=== PATIENT | male | born 1960 | race American Indian/Alaskan Native ===

== ENCOUNTER 2017-12-30 15:54 | Inpatient (IN) | payer MEDICAID ==
[2017-12-30] MEDS ORDERED: ASPIRIN PO ONE (16:07)
--- NOTE | 2017-12-30 16:52 | XRay Report ---
FINAL REPORT PROCEDURE: XR CHEST ROUTINE 2V TECHNIQUE: PA and lateral chest radiographs were obtained. CPT 12550 HISTORY: chest pain, SOB COMPARISON: 08/26/2017 FINDINGS: Heart: Normal. Mediastinum/Vessels: Normal. Lungs/Pleural space: No infiltrate, effusion, or pneumothorax. Bony thorax: No acute osseous abnormality. Other: IMPRESSION: No radiographic evidence of acute abnormality.
[2017-12-30 17:07] LABS: Basophils % (Auto) 0.2 % (0.0-1.8); Eosinophils # (Auto) 0.1 K/mm3 (0.0-0.4); Hematocrit 31.7 % (35.5-45.6); Hemoglobin 10.5 gm/dl (11.8-15.2); Lymphocytes # (Auto) 1.1 K/mm3 (1.2-5.4); Lymphocytes % (Auto) 11.5 % (13.4-35.0); Mean Corpuscular HGB Conc 33 % (32-34); Mean Corpuscular Hemoglobin 30 pg (28-32); Mean Corpuscular Volume 91 fl (84-94); Monocytes # (Auto) 0.8 K/mm3 (0.0-0.8); Monocytes % (Auto) 8.4 % (0.0-7.3); Platelet Count 379 K/mm3 (140-440); Red Cell Distribution Width 16.1 % (13.2-15.2)
[2017-12-30 17:16] LABS: Calcium 9.5 mg/dL (8.4-10.2)
--- NOTE | 2017-12-30 23:01 | Emergency Department Report ---
ED Chest Pain HPI - General Chief Complaint: Chest Pain Stated Complaint: CHEST PAIN/SOB Time Seen by Provider: 12/30/17 23:00 Source: patient Mode of arrival: Ambulatory Limitations: No Limitations - History of Present Illness MD Complaint: chest pain -: Sudden Onset: during rest Pain Location: substernal Pain Radiation: none Severity scale (0 -10): 6 Quality: heaviness Consistency: constant Improves With: nothing Worsens With: nothing re: denies: nausea, vomting Other Symptoms: denies: fever Treatments Prior to Arrival: none - Related Data Previous Rx's Medication Instructions Recorded Last Taken Type Aspirin [Aspirin BABY CHEW TAB] 81 mg PO QDAY #30 tab.chew 08/28/17 Unknown Rx AtorvaSTATin [Lipitor] 40 mg PO QHS #30 tablet 08/28/17 Unknown Rx Clopidogrel [Plavix] 75 mg PO QDAY #30 tablet 08/28/17 Unknown Rx Gabapentin [Neurontin] 300 mg PO TID #90 capsule 08/28/17 Unknown Rx ISOSORBIDE MONOnitrate [Imdur ER] 30 mg PO DAILY #30 tablet 08/28/17 Unknown Rx Lisinopril [Zestril TAB] 40 mg PO QDAY #30 tablet 08/28/17 Unknown Rx Metoprolol Succinate [Toprol Xl] 50 mg PO QDAY #30 tab.er.24h 08/28/17 Unknown Rx Nitroglycerin [Nitrostat] 0.4 mg SL Q5M PRN #30 tablet 08/28/17 Unknown Rx Sertraline [Zoloft] 100 mg PO DAILY #30 tablet 08/28/17 Unknown Rx amLODIPine [Norvasc] 10 mg PO DAILY #30 tablet 08/28/17 Unknown Rx risperiDONE [RisperDAL] 1 mg PO DAILY #30 tablet 08/28/17 Unknown Rx Allergies Allergy/AdvReac Type Severity Reaction Status Date / Time No Known Allergies Allergy Verified 04/20/17 13:25 Heart Score - HEART Score History: Moderately suspicious EKG: Non-specific Age: 45-65 Risk factors: 1-2 risk factors Troponin: < normal limit HEART Score: 4 - Critical Actions Critical Actions: 4-6 pts:12-16.6% risk of adverse cardiac event. Should be admitted ED Review of Systems ROS: Stated complaint: CHEST PAIN/SOB Other details as noted in HPI Comment: All other systems reviewed and negative Constitutional: denies: chills, fever Eyes: denies: eye pain ENT: denies: ear pain Respiratory: shortness of breath. denies: cough Cardiovascular: chest pain, palpitations Endocrine: no symptoms reported Gastrointestinal: denies: abdominal pain, nausea, vomiting Genitourinary: denies: urgency, dysuria Musculoskeletal: denies: back pain Skin: denies: rash, lesions Neurological: denies: headache, weakness Psychiatric: denies: anxiety, depression Hematological/Lymphatic: denies: easy bleeding, easy bruising ED Past Medical Hx - Past Medical History Hx Hypertension: Yes Hx CVA: Yes (2014) Hx Heart Attack/AMI: Yes (x2, Stents placed) Hx Congestive Heart Failure: Yes Hx Diabetes: No Hx Arthritis: Yes Additional medical history: Cardiomegaly, Herniated Disk, Neuropathy - Surgical History Hx Coronary Stent: Yes Additional Surgical History: Heart stents; Stents and "bubble" placed in legs. - Social History Smoking Status: Current Every Day Smoker Substance Use Type: None - Medications Home Medications: Home Medications Medication Instructions Recorded Confirmed Last Taken Type Aspirin [Aspirin BABY CHEW TAB] 81 mg PO QDAY #30 tab.chew 08/28/17 Unknown Rx AtorvaSTATin [Lipitor] 40 mg PO QHS #30 tablet 08/28/17 Unknown Rx Clopidogrel [Plavix] 75 mg PO QDAY #30 tablet 08/28/17 Unknown Rx Gabapentin [Neurontin] 300 mg PO TID #90 capsule 08/28/17 Unknown Rx ISOSORBIDE MONOnitrate [Imdur ER] 30 mg PO DAILY #30 tablet 08/28/17 Unknown Rx Lisinopril [Zestril TAB] 40 mg PO QDAY #30 tablet 08/28/17 Unknown Rx Metoprolol Succinate [Toprol Xl] 50 mg PO QDAY #30 tab.er.24h 08/28/17 Unknown Rx Nitroglycerin [Nitrostat] 0.4 mg SL Q5M PRN #30 tablet 08/28/17 Unknown Rx Sertraline [Zoloft] 100 mg PO DAILY #30 tablet 08/28/17 Unknown Rx amLODIPine [Norvasc] 10 mg PO DAILY #30 tablet 08/28/17 Unknown Rx risperiDONE [RisperDAL] 1 mg PO DAILY #30 tablet 08/28/17 Unknown Rx ED Physical Exam - General Limitations: No Limitations General appearance: alert, in no apparent distress - Head Head exam: Present: atraumatic, normocephalic, normal inspection - Eye Eye exam: Present: normal appearance, PERRL, EOMI Pupils: Present: normal accommodation - ENT ENT exam: Present: normal exam, normal orophraynx, mucous membranes moist - Neck Neck exam: Present: normal inspection, full ROM. Absent: tenderness - Respiratory Respiratory exam: Present: normal lung sounds bilaterally. Absent: respiratory distress, wheezes, rales, rhonchi - Cardiovascular Cardiovascular Exam: Present: regular rate, normal rhythm - GI/Abdominal GI/Abdominal exam: Present: soft, normal bowel sounds. Absent: distended, tenderness, guarding, rebound - Extremities Exam Extremities exam: Present: normal inspection, full ROM, normal capillary refill - Back Exam Back exam: Present: normal inspection, full ROM - Neurological Exam Neurological exam: Present: alert, oriented X3, CN II-XII intact - Psychiatric Psychiatric exam: Present: normal affect, normal mood - Skin Skin exam: Present: warm, dry, intact, normal color ED Course Vital Signs 12/30/17 12/30/17 12/30/17 16:03 16:08 23:49 Temperature 97.9 F Pulse Rate 92 H 61 Respiratory 16 12 Rate Blood Pressure 93/39 Blood Pressure 84/42 157/73 [Right] O2 Sat by Pulse 97 99 Oximetry - Reevaluation(s) Reevaluation #1: 12/31/17 00:19 I discussed patients care with the hospitalist inside sales person Dr Ilsa Bajwa. She will admit patient to the hospital for further evaluation and management. ANTON score - Anton Score Age > 65: (0) No Aspirin use within the Past 7 Days: (0) No 3 or more CAD Risk Factors: (1) Yes 2 or more Angina events in past 24 hrs: (1) Yes Known CAD with more than 50% Stenosis: (0) No Elevated Cardiac Markers: (0) No ST Deviation Greater than 0.5mm: (0) No ANTON Score: 2 ED Medical Decision Making - Lab Data Result diagrams: 12/30/17 16:36 12/30/17 16:36 - EKG Data -: EKG Interpreted by Me EKG shows normal: sinus rhythm Rate: bradycardia (57) - EKG Data When compared to previous EKG there are: previous EKG unavailable Interpretation: nonspecific ST-T wave dylan - Radiology Data Radiology results: report reviewed, image reviewed - Medical Decision Making Chest Pain Critical care attestation.: If time is entered above; I have spent that time in minutes in the direct care of this critically ill patient, excluding procedure time. ED Disposition Clinical Impression: MELISA (acute kidney injury) Chest pain Qualifiers: Chest pain type: unspecified Qualified Code(s): R07.9 - Chest pain, unspecified Hypotension Qualifiers: Hypotension type: unspecified hypotension type Qualified Code(s): I95.9 - Hypotension, unspecified Disposition: DC-09 OP ADMIT IP TO THIS HOSP Is pt being admited?: Yes Does the pt Need Aspirin: Yes Condition: Stable Time of Disposition: 23:35
[2017-12-30] MEDS ORDERED: NACL 0.9% 1000 ML 1,000 ML IV ONE ×2 (23:02)
[2017-12-30 23:43] LABS: INR 0.92 (0.87-1.13); Partial Thromboplastin Time 37.9 Sec. (24.2-36.6)
[2017-12-30] MEDS ORDERED: SODIUM CHLORIDE FLUSH SYRINGE 10 ML IV PRN (23:50)
[2017-12-30] MEDS ORDERED: ZOFRAN IV PRN (23:50)
[2017-12-30] MEDS ORDERED: MORPHINE IV PRN (23:50)
[2017-12-30] MEDS ORDERED: TYLENOL PO PRN (23:50)
[2017-12-30] MEDS ORDERED: D50W (25GM) Syringe IV PRN (23:50)
--- NOTE | 2017-12-30 23:55 | History and Physical Report ---
History of Present Illness Date of examination: 12/30/17 History of present illness: 57-year-old man with a history of hypertension, coronary artery disease, peripheral vascular disease, hyperlipidemia, ischemic cardiomyopathy, depression comes emergency room with complaints of chest pain . Pain is in the across the chest which he describes a sharp pain, intermittent every 5 minutes, radiating to the left neck, he cannot identify any exacerbating or relieving factors. He had a stent placed in October of this year. 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 He denies nausea vomiting, diaphoresis or palpitation, admits to shortness of breath. Review of systems Constitutional: no weight loss, chills Ears, eyes, nose, mouth and throat: no nasal congestion, no nasal discharge, no sinus pressure, no vision change, no red eye. Neck: No neck pain or rigidity. Cardiovascular: no palpitations Respiratory: No cough, shortness of breath Gastrointestinal: no abdominal pain, hematochezia Genitourinary : no dysuria, frequency , no hematuria Musculoskeletal: no joint swelling or muscle ache Integumentary: no rash, no pruritis Neurological: no parathesias, no numbness, no focal weakness Endocrine: no cold or heat intolerance, no polyuria or polydipsia Hematologic/Lymphatic: no easy bruising, no easy bleeding, no gland swelling Allergic/Immunologic: no urticaria, no angioedema. PAST MEDICAL HISTORY: hypertension, coronary artery disease, peripheral vascular disease, hyperlipidemia, ischemic cardiomyopathy, depression PAST SURGICAL HISTORY: None SOCIAL HISTORY: no alcohol, drugs, smoke 1/3 pack day FAMILY HISTORY: Hypertension Medications and Allergies Allergies Allergy/AdvReac Type Severity Reaction Status Date / Time No Known Allergies Allergy Verified 04/20/17 13:25 Home Medications Medication Instructions Recorded Confirmed Last Taken Type Aspirin [Aspirin BABY CHEW TAB] 81 mg PO QDAY #30 tab.chew 08/28/17 Unknown Rx AtorvaSTATin [Lipitor] 40 mg PO QHS #30 tablet 08/28/17 Unknown Rx Clopidogrel [Plavix] 75 mg PO QDAY #30 tablet 08/28/17 Unknown Rx Gabapentin [Neurontin] 300 mg PO TID #90 capsule 08/28/17 Unknown Rx ISOSORBIDE MONOnitrate [Imdur ER] 30 mg PO DAILY #30 tablet 08/28/17 Unknown Rx Lisinopril [Zestril TAB] 40 mg PO QDAY #30 tablet 08/28/17 Unknown Rx Metoprolol Succinate [Toprol Xl] 50 mg PO QDAY #30 tab.er.24h 08/28/17 Unknown Rx Nitroglycerin [Nitrostat] 0.4 mg SL Q5M PRN #30 tablet 08/28/17 Unknown Rx Sertraline [Zoloft] 100 mg PO DAILY #30 tablet 08/28/17 Unknown Rx amLODIPine [Norvasc] 10 mg PO DAILY #30 tablet 08/28/17 Unknown Rx risperiDONE [RisperDAL] 1 mg PO DAILY #30 tablet 08/28/17 Unknown Rx Active Meds: Active Medications Acetaminophen (Tylenol) 650 mg PO Q4H PRN PRN Reason: Pain MILD(1-3)/Fever >100.5/SAHU Dextrose (D50w (25gm) Syringe) 50 ml IV PRN PRN PRN Reason: Hypoglycemia Enoxaparin Sodium (Lovenox) 30 mg SUB-Q QDAY [facility] Sodium Chloride (Nacl 0.9% 1000 Ml) 1,000 mls @ 999 mls/hr IV BOLUS ONE Stop: 12/31/17 00:02 Sodium Chloride (Nacl 0.9% 1000 Ml) 1,000 mls @ 999 mls/hr IV BOLUS ONE Stop: 12/31/17 00:02 Insulin Human Lispro (Humalog) 0 unit SUB-Q ACHS ANDREW; Protocol Morphine Sulfate (Morphine) 2 mg IV Q4H PRN PRN Reason: Pain, Moderate (4-6) Ondansetron HCl (Zofran) 4 mg IV Q4H PRN PRN Reason: Nausea And Vomiting Sodium Chloride (Sodium Chloride Flush Syringe 10 Ml) 10 ml IV BID ANDREW Sodium Chloride (Sodium Chloride Flush Syringe 10 Ml) 10 ml IV PRN PRN PRN Reason: LINE FLUSH Exam - Physical Exam Narrative exam: Gen. appearance: Patient lying in bed, no apparent distress HEENT: Normocephalic, atraumatic, pupils equally round and reactive to light, extraocular movement intact, and no sclericterus,. No JVD or thyromegaly or nodule,neck supple, no carotid bruit ,mucous membranes moist, no exudate or erythema Heart: S1, S2, regular rate and rhythm Lungs: Clear to auscultation bilaterally, breathing comfortable Abdomen: Positive bowel sounds, nontender, nondistended, no organomegaly Extremity: No edema, cyanosis, clubbing Skin: No rash, nodules, warm, dry Neuro: Oriented 3, cranial nerves II-12 intact, speech is fluent, motor and sensory intact - Constitutional Vitals: Temp Pulse Resp BP Pulse Ox 97.9 F 61 16 157/73 99 12/30/17 16:03 12/30/17 23:49 12/30/17 23:49 12/30/17 23:49 12/30/17 23:49 Results - Labs CBC & Chem 7: 12/30/17 16:36 12/30/17 16:36 Labs: Abnormal lab results 12/30/17 12/30/17 12/30/17 Range/Units 16:36 16:36 23:18 RBC 3.50 L (3.65-5.03) M/mm3 Hgb 10.5 L (11.8-15.2) gm/dl Hct 31.7 L (35.5-45.6) % RDW 16.1 H (13.2-15.2) % Lymph % (Auto) 11.5 L (13.4-35.0) % [place] % (Auto) 8.4 H (0.0-7.3) % Lymph # 1.1 L (1.2-5.4) K/mm3 Seg Neutrophils % 78.9 H (40.0-70.0) % APTT 37.9 H (24.2-36.6) Sec. Sodium 136 L (137-145) mmol/L Chloride 95.8 L (98-107) mmol/L BUN 29 H (9-20) mg/dL Creatinine 2.5 H (0.8-1.5) mg/dL Glucose 118 H (75-100) mg/dL - Imaging and Cardiology EKG: image reviewed Chest x-ray: image reviewed Assessment and Plan Assessment Unstable angina Acute renal failure Coronary artery disease Hypertension Peripheral vascular disease Hyperlipidemia Depression Plan Admit to medicine Check cardiac enzymes, consult cardiology, IV morphine Start IV fluids, monitor kidney function, hold ACEI Continue appropiate outpatient medications DVT prophylaxis
[2017-12-31] MEDS ORDERED: APRESOLINE IV PRN (00:05)
[2017-12-31] MEDS ORDERED: ASPIRIN ONE (00:20)
[2017-12-31] MEDS ORDERED: NACL 0.9% 1000 ML 1,000 ML ONE ×2 (00:20→03:57)
[2017-12-31] MEDS ORDERED: NACL 0.45% 1000 ML 1,000 ML IV SCH (01:00)
[2017-12-31 04:53] LABS: Basophils % (Auto) 0.4 % (0.0-1.8); Eosinophils # (Auto) 0.2 K/mm3 (0.0-0.4); Eosinophils % (Auto) 1.9 % (0.0-4.3); Hematocrit 32.7 % (35.5-45.6); Hemoglobin 10.9 gm/dl (11.8-15.2); Lymphocytes # (Auto) 2.5 K/mm3 (1.2-5.4); Lymphocytes % (Auto) 24.5 % (13.4-35.0); Mean Corpuscular HGB Conc 33 % (32-34); Mean Corpuscular Hemoglobin 31 pg (28-32); Mean Corpuscular Volume 93 fl (84-94); Monocytes % (Auto) 9.5 % (0.0-7.3); Platelet Count 358 K/mm3 (140-440); Red Blood Count 3.52 M/mm3 (3.65-5.03); Red Cell Distribution Width 16.3 % (13.2-15.2)
[2017-12-31 05:21] LABS: Calcium 8.8 mg/dL (8.4-10.2)
--- NOTE | 2017-12-31 07:46 | Progress Note ---
Assessment and Plan Assessment and plan: --Unstable angina; Continue aspirin and Plavix and nitrates statins and beta blockers Hold TARA inhibitor's in view of MELISA, serial cardiac enzymes and EKG Echo:06/20/2017 at a different hospital; EF 45-50% LDH grade 3 diastolic failure Cath :06/20/2017 patent LAD, PCI to OM1 follow cardiology evaluation and recommendations Possible stress test tomorrow --CAD status post PCI; Continue aspirin and Plavix and other cardiac medications --MELISA; probably secondary to ATN, gentle hydration closely monitor his renal function Avoid nephrotoxins, no improvement consider nephrology consult --Dyslipidemia; resume statin --Diastolic congestive heart failure; continue current management --Peripheral neuropathy; antinuclear gabapentin --History of depression; continue Zoloft, supportive care --DVT prophylaxis; Lovenox renal dose We will closely monitor the patient and adjust the management as needed Plan of care reviewed with the patient History Interval history: Patient Seen and examined medical records reviewed Complaints of intermittent chest pain Alert awake oriented 3 Vital Signs reviewed Hospitalist Physical - Constitutional Vitals: Temp Pulse Resp BP Pulse Ox 97.9 F 53 L 17 151/67 97 12/30/17 16:03 12/31/17 05:00 12/31/17 05:00 12/31/17 05:00 12/31/17 05:00 General appearance: Present: no acute distress, well-nourished - EENT Eyes: Present: PERRL, EOM intact - Neck Neck: Present: supple, normal ROM - Respiratory Respiratory effort: normal Respiratory: bilateral: diminished, negative: rales, rhonchi, wheezing - Cardiovascular Rhythm: regular Heart Sounds: Present: S1 & S2 - Extremities Extremities: no ischemia, No edema - Abdominal General gastrointestinal: soft, non-tender, non-distended, normal bowel sounds - Integumentary Integumentary: Present: clear, warm - Psychiatric Psychiatric: appropriate mood/affect, cooperative - Neurologic Neurologic: CNII-XII intact, moves all extremities Results - Labs CBC & Chem 7: 12/31/17 04:28 12/31/17 04:28 Labs: Laboratory Last Values WBC 10.4 K/mm3 (4.5-11.0) 12/31/17 04:28 RBC 3.52 M/mm3 (3.65-5.03) L 12/31/17 04:28 Hgb 10.9 gm/dl (11.8-15.2) L 12/31/17 04:28 Hct 32.7 % (35.5-45.6) L 12/31/17 04:28 MCV 93 fl (84-94) 12/31/17 04:28 MCH 31 pg (28-32) 12/31/17 04:28 MCHC 33 % (32-34) 12/31/17 04:28 RDW 16.3 % (13.2-15.2) H 12/31/17 04:28 Plt Count 358 K/mm3 (140-440) 12/31/17 04:28 Lymph % (Auto) 24.5 % (13.4-35.0) 12/31/17 04:28 [place] % (Auto) 9.5 % (0.0-7.3) H 12/31/17 04:28 Eos % (Auto) 1.9 % (0.0-4.3) 12/31/17 04:28 Baso % (Auto) 0.4 % (0.0-1.8) 12/31/17 04:28 Lymph # 2.5 K/mm3 (1.2-5.4) 12/31/17 04:28 [place] # 1.0 K/mm3 (0.0-0.8) H 12/31/17 04:28 Eos # 0.2 K/mm3 (0.0-0.4) 12/31/17 04:28 Baso # 0.0 K/mm3 (0.0-0.1) 12/31/17 04:28 Seg Neutrophils % 63.7 % (40.0-70.0) 12/31/17 04:28 Seg Neutrophils # 6.6 K/mm3 (1.8-7.7) 12/31/17 04:28 PT 12.8 Sec. (12.2-14.9) 12/30/17 23:18 INR 0.92 (0.87-1.13) 12/30/17 23:18 APTT 37.9 Sec. (24.2-36.6) H 12/30/17 23:18 Sodium 138 mmol/L (137-145) 12/31/17 04:28 Potassium 3.6 mmol/L (3.6-5.0) 12/31/17 04:28 Chloride 98.9 mmol/L (98-107) 12/31/17 04:28 Carbon Dioxide 26 mmol/L (22-30) 12/31/17 04:28 Anion Gap 17 mmol/L 12/31/17 04:28 BUN 28 mg/dL (9-20) H 12/31/17 04:28 Creatinine 2.2 mg/dL (0.8-1.5) H 12/31/17 04:28 Estimated GFR 38 ml/min 12/31/17 04:28 BUN/Creatinine Ratio 13 % 12/31/17 04:28 Glucose 90 mg/dL (75-100) 12/31/17 04:28 Calcium 8.8 mg/dL (8.4-10.2) 12/31/17 04:28 Troponin T < 0.010 ng/mL (0.00-0.029) 12/30/17 21:28 NT-Pro-B Natriuret Pep 85.27 pg/mL (0-900) 12/30/17 23:18
[2017-12-31] MEDS: HumaLOG SUB-Q SCH ×3 (08:05→22:19)
[2017-12-31] MEDS: NEURONTIN PO SCH ×3 (08:15→22:18)
--- NOTE | 2017-12-31 08:57 | Consultation ---
History of Present Illness Consult date: 12/31/17 Consult reason: chest pain History of present illness: 57 year old male with a history of coronary artery disease presenting with left precordial chest pain at rest associated with some shortness of breath. Patient admitted for for that evaluation and management. Past History Past Medical History: CAD, hypertension, hyperlipidemia Past Surgical History: PTCA Social history: no significant social history, smoking. denies: alcohol abuse, IV drug use Family history: no significant family history Medications and Allergies Allergies Allergy/AdvReac Type Severity Reaction Status Date / Time No Known Allergies Allergy Verified 04/20/17 13:25 Home Medications Medication Instructions Recorded Confirmed Last Taken Type Aspirin [Aspirin BABY CHEW TAB] 81 mg PO QDAY #30 tab.chew 08/28/17 Unknown Rx AtorvaSTATin [Lipitor] 40 mg PO QHS #30 tablet 08/28/17 Unknown Rx Clopidogrel [Plavix] 75 mg PO QDAY #30 tablet 08/28/17 Unknown Rx Gabapentin [Neurontin] 300 mg PO TID #90 capsule 08/28/17 Unknown Rx ISOSORBIDE MONOnitrate [Imdur ER] 30 mg PO DAILY #30 tablet 08/28/17 Unknown Rx Lisinopril [Zestril TAB] 40 mg PO QDAY #30 tablet 08/28/17 Unknown Rx Metoprolol Succinate [Toprol Xl] 50 mg PO QDAY #30 tab.er.24h 08/28/17 Unknown Rx Nitroglycerin [Nitrostat] 0.4 mg SL Q5M PRN #30 tablet 08/28/17 Unknown Rx Sertraline [Zoloft] 100 mg PO DAILY #30 tablet 08/28/17 Unknown Rx amLODIPine [Norvasc] 10 mg PO DAILY #30 tablet 08/28/17 Unknown Rx risperiDONE [RisperDAL] 1 mg PO DAILY #30 tablet 08/28/17 Unknown Rx Active Meds: Active Medications Acetaminophen (Tylenol) 650 mg PO Q4H PRN PRN Reason: Pain MILD(1-3)/Fever >100.5/SAHU Amlodipine Besylate (Norvasc) 10 mg PO DAILY ANDREW Aspirin (Baby Aspirin) 81 mg PO QDAY ANDREW Atorvastatin Calcium (Lipitor) 40 mg PO QHS ANDREW Clopidogrel Bisulfate (Plavix) 75 mg PO QDAY ANDREW Dextrose (D50w (25gm) Syringe) 50 ml IV PRN PRN PRN Reason: Hypoglycemia Enoxaparin Sodium (Lovenox) 30 mg SUB-Q QDAY [facility] Gabapentin (Neurontin) 300 mg PO TID ANDREW Hydralazine HCl (Apresoline) 5 mg IV Q6H PRN PRN Reason: Hypertension Sodium Chloride (Nacl 0.45% 1000 Ml) 1,000 mls @ 75 mls/hr IV DIRECT ANDREW Insulin Human Lispro (Humalog) 0 unit SUB-Q ACHS ANDREW; Protocol Isosorbide Mononitrate (Imdur) 30 mg PO DAILY [facility] Metoprolol Succinate (Toprol Xl) 50 mg PO QDAY [facility] Morphine Sulfate (Morphine) 2 mg IV Q4H PRN PRN Reason: Pain, Moderate (4-6) Ondansetron HCl (Zofran) 4 mg IV Q4H PRN PRN Reason: Nausea And Vomiting Risperidone (Risperdal) 1 mg PO DAILY ANDREW Sertraline HCl (Zoloft) 100 mg PO DAILY [facility] Sodium Chloride (Sodium Chloride Flush Syringe 10 Ml) 10 ml IV BID [facility] Sodium Chloride (Sodium Chloride Flush Syringe 10 Ml) 10 ml IV PRN PRN PRN Reason: LINE FLUSH Review of Systems All systems: negative Cardiovascular: chest pain, shortness of breath Physical Examination Vital Signs Temp Pulse Resp BP Pulse Ox 97.9 F 92 H 16 93/39 97 12/30/17 16:03 12/30/17 16:03 12/30/17 16:03 12/30/17 16:03 12/30/17 16:03 General appearance: no acute distress, well-nourished HEENT: Positive: PERRL, Mucus Membranes Moist Neck: Positive: neck supple, trachea midline Cardiac: Positive: Reg Rate and Rhythm, S1/S2. Negative: Audible Murmur Lungs: Positive: clear to auscultation, Normal Breath Sounds Neuro: Positive: Grossly Intact Abdomen: Positive: Soft, Active Bowel Sounds. Negative: Tender, Distended Male genitourinary: Positive: normal Skin: Positive: Clear Incision: Cardiac Cath Site Musculoskeletal: No Pain, Normal Range of Motion Extremities: Present: normal. Absent: edema Results 12/31/17 04:28 12/31/17 04:28 Coagulation 12/30/17 Range/Units 23:18 PT 12.8 (12.2-14.9) Sec. INR 0.92 (0.87-1.13) APTT 37.9 H (24.2-36.6) Sec. CBC 12/30/17 12/31/17 Range/Units 16:36 04:28 WBC 9.5 10.4 (4.5-11.0) K/mm3 RBC 3.50 L 3.52 L (3.65-5.03) M/mm3 Hgb 10.5 L 10.9 L (11.8-15.2) gm/dl Hct 31.7 L 32.7 L (35.5-45.6) % Plt Count 379 358 (140-440) K/mm3 Lymph # 1.1 L 2.5 (1.2-5.4) K/mm3 [place] # 0.8 1.0 H (0.0-0.8) K/mm3 Eos # 0.1 0.2 (0.0-0.4) K/mm3 Baso # 0.0 0.0 (0.0-0.1) K/mm3 Comprehensive Metabolic Panel 12/30/17 12/31/17 Range/Units 16:36 04:28 Sodium 136 L 138 (137-145) mmol/L Potassium 4.4 3.6 (3.6-5.0) mmol/L Chloride 95.8 L 98.9 (98-107) mmol/L Carbon Dioxide 28 26 (22-30) mmol/L BUN 29 H 28 H (9-20) mg/dL Creatinine 2.5 H 2.2 H (0.8-1.5) mg/dL Glucose 118 H 90 (75-100) mg/dL Calcium 9.5 8.8 (8.4-10.2) mg/dL EKG interpretations - Telemetry EKG Rhythm: Sinus Rhythm Assessment and Plan 1. Chest pain rule out ischemic coronary artery disease 2. Coronary artery disease, history of PCI and stenting 3. Peripheral vascular disease 4. Hyperlipidemia 5. Essential hypertension Plan. Continue present cardiac management check cardiac isoenzymes. Lexiscan thallium scan if enzymes are negative
[2017-12-31] MEDS: PLAVIX PO SCH (10:15)
[2017-12-31] MEDS: IMDUR PO SCH (10:15)
[2017-12-31] MEDS: BABY ASPIRIN PO SCH (10:15)
[2017-12-31] MEDS: RisperDAL PO SCH (10:15)
[2017-12-31] MEDS: SODIUM CHLORIDE FLUSH SYRINGE 10 ML IV SCH ×2 (10:15→22:20)
[2017-12-31] MEDS: LOVENOX SUB-Q SCH (10:15)
[2017-12-31] MEDS: ZOLOFT PO SCH (10:15)
[2017-12-31] MEDS: NORVASC PO SCH (11:47)
[2017-12-31] MEDS: TOPROL XL PO SCH (13:03)
[2018-01-01] MEDS: HumaLOG SUB-Q SCH ×4 (07:56→16:36)
[2018-01-01] MEDS ORDERED: LEXISCAN IV ONE ×2 (08:56→09:02)
[2018-01-01] MEDS ORDERED: PNEUMOVAX 23 IM ONE (12:00)
[2018-01-01] MEDS: NORVASC PO SCH (12:21)
[2018-01-01] MEDS: RisperDAL PO SCH (12:21)
[2018-01-01] MEDS: IMDUR PO SCH (12:22)
[2018-01-01] MEDS: TOPROL XL PO SCH (12:22)
[2018-01-01] MEDS: PLAVIX PO SCH (12:22)
[2018-01-01] MEDS: NEURONTIN PO SCH ×2 (12:22→16:36)
[2018-01-01] MEDS: BABY ASPIRIN PO SCH (12:23)
[2018-01-01] MEDS: ZOLOFT PO SCH (12:23)
[2018-01-01] MEDS: LOVENOX SUB-Q SCH (12:23)
[2018-01-01] MEDS: SODIUM CHLORIDE FLUSH SYRINGE 10 ML IV SCH (12:24)
--- NOTE | 2018-01-01 14:21 | Progress Note ---
Assessment and Plan - Patient Problems (1) Chest pain Current Visit: Yes Status: Acute Qualifiers: Chest pain type: unspecified Qualified Code(s): R07.9 - Chest pain, unspecified (2) CAD (coronary artery disease) Current Visit: No Status: Acute Qualifiers: Coronary Disease-Associated Artery/Lesion type: [place] artery Associated angina: without angina (3) Depression Current Visit: No Status: Chronic Qualifiers: Major depression recurrence: recurrent Major depression episode severity: moderate Qualified Code(s): F33.1 - Major depressive disorder, recurrent, moderate (4) HTN (hypertension) Current Visit: No Status: Chronic Qualifiers: Hypertension type: essential hypertension Qualified Code(s): I10 - Essential (primary) hypertension (5) Hyperlipidemia Current Visit: No Status: Chronic Qualifiers: Hyperlipidemia type: mixed hyperlipidemia Qualified Code(s): E78.2 - Mixed hyperlipidemia (6) PAD (peripheral artery disease) Current Visit: No Status: Chronic Subjective Date of service: 01/01/18 Interval history: C\O TOE PAIN....CONTINUOUS CP,,+ TENDER Objective Vital Signs Temp Pulse Resp BP BP Pulse Ox 01/01/18 12:18 98.7 F 97 H 20 138/62 12/31/17 23:24 98.5 F 62 16 116/54 95 12/31/17 23:11 99 12/31/17 22:00 16 12/31/17 17:16 98.7 F 66 22 159/64 100 12/31/17 14:40 128/48 100 12/31/17 14:30 128/48 100 12/31/17 14:20 128/48 100 - Physical Examination HEENT: Positive: PERRL, Mucus Membranes Moist Neck: Positive: neck supple, trachea midline Cardiac: Positive: Reg Rate and Rhythm, S4, Other (TENDER) Lungs: Positive: clear to auscultation Neuro: Positive: Grossly Intact Abdomen: Positive: Soft, Active Bowel Sounds. Negative: Tender, Distended Skin: Positive: Clear Incision: Cardiac Cath Site Musculoskeletal: No Pain, Normal Range of Motion Extremities: Present: normal. Absent: edema - Imaging and Cardiology EKG: image reviewed
[2018-01-01 14:31] VITALS: BP 153/71
--- NOTE | 2018-01-01 17:41 | Progress Note ---
Hospitalist Physical - Constitutional Vitals: Temp Pulse Resp BP Pulse Ox 98.7 F 97 H 20 138/62 95 01/01/18 12:18 01/01/18 12:18 01/01/18 12:18 01/01/18 12:18 12/31/17 23:24 General appearance: Present: no acute distress, well-nourished Results - Labs CBC & Chem 7: 12/31/17 04:28 12/31/17 04:28 Labs: Laboratory Last Values WBC 10.4 K/mm3 (4.5-11.0) 12/31/17 04:28 RBC 3.52 M/mm3 (3.65-5.03) L 12/31/17 04:28 Hgb 10.9 gm/dl (11.8-15.2) L 12/31/17 04:28 Hct 32.7 % (35.5-45.6) L 12/31/17 04:28 MCV 93 fl (84-94) 12/31/17 04:28 MCH 31 pg (28-32) 12/31/17 04:28 MCHC 33 % (32-34) 12/31/17 04:28 RDW 16.3 % (13.2-15.2) H 12/31/17 04:28 Plt Count 358 K/mm3 (140-440) 12/31/17 04:28 Lymph % (Auto) 24.5 % (13.4-35.0) 12/31/17 04:28 [place] % (Auto) 9.5 % (0.0-7.3) H 12/31/17 04:28 Eos % (Auto) 1.9 % (0.0-4.3) 12/31/17 04:28 Baso % (Auto) 0.4 % (0.0-1.8) 12/31/17 04:28 Lymph # 2.5 K/mm3 (1.2-5.4) 12/31/17 04:28 [place] # 1.0 K/mm3 (0.0-0.8) H 12/31/17 04:28 Eos # 0.2 K/mm3 (0.0-0.4) 12/31/17 04:28 Baso # 0.0 K/mm3 (0.0-0.1) 12/31/17 04:28 Seg Neutrophils % 63.7 % (40.0-70.0) 12/31/17 04:28 Seg Neutrophils # 6.6 K/mm3 (1.8-7.7) 12/31/17 04:28 PT 12.8 Sec. (12.2-14.9) 12/30/17 23:18 INR 0.92 (0.87-1.13) 12/30/17 23:18 APTT 37.9 Sec. (24.2-36.6) H 12/30/17 23:18 Sodium 138 mmol/L (137-145) 12/31/17 04:28 Potassium 3.6 mmol/L (3.6-5.0) 12/31/17 04:28 Chloride 98.9 mmol/L (98-107) 12/31/17 04:28 Carbon Dioxide 26 mmol/L (22-30) 12/31/17 04:28 Anion Gap 17 mmol/L 12/31/17 04:28 BUN 28 mg/dL (9-20) H 12/31/17 04:28 Creatinine 2.2 mg/dL (0.8-1.5) H 12/31/17 04:28 Estimated GFR 38 ml/min 12/31/17 04:28 BUN/Creatinine Ratio 13 % 12/31/17 04:28 Glucose 90 mg/dL (75-100) 12/31/17 04:28 POC Glucose 95 (70-105) 01/01/18 07:23 Calcium 8.8 mg/dL (8.4-10.2) 12/31/17 04:28 Troponin T < 0.010 ng/mL (0.00-0.029) 12/30/17 21:28 NT-Pro-B Natriuret Pep 85.27 pg/mL (0-900) 12/30/17 23:18
--- NOTE | 2018-01-01 17:49 | Discharge Summary ---
Providers - Providers Date of Admission: 12/30/17 23:50 Date of discharge: 01/01/18 Attending physician: KATY NOVOA 12/30/17 23:50 Consult to Physician [CONS] Routine Comment: DR FRANCO SAW PT IN ER 0800 Consulting Provider: NIA UNDERWOOD Physician Instructions: Reason For Exam: Primary care physician: [facility] RN Hospitalization Reason for admission: chest pain Condition: Stable Pertinent studies: Echo; LVEF 55%, mild LVH, diastolic dysfunction Thallium test; negative Chest x-ray; negative Hospital course: 57-year-old male patient with significant history of coronary artery disease status post PCI peripheral vascular disease dyslipidemia ischemic cardiomyopathy the patient was admitted through emergency room with left-sided chest pain. Patient was admitted symptomatically managed evaluated by cardiology, Underwent echocardiogram and thallium stress test which was negative, Echo findings consistent with diastolic dysfunction, Patient is on all appropriate cardiac medications Smoking cessation counseling done advised nicotine patch if needed Patient also advised compliance with medications and diet and follow-up visits Patient has acute kidney injury probably secondary to ATN, creatinine significantly improved from 2.5-2.2 Advised plenty oral fluids and recheck BMP in 2-3 days at PMDs office, also advised to avoid nephrotoxins Today he is comfortable no new complaints, Denies chest pain shortness of breath Vital signs stable, Cleared by cardiology for discharge, physical exam unremarkable Patient is hemodynamically clinically stable at discharge Discharge diagnosis ; --Unstable angina; atypical chest pain, negative stress test --Chest pain due to GERD --CAD status post PCI; --MELISA; probably secondary to ATN, trending down --Dyslipidemia; resume statin --Diastolic congestive heart failure; continue current meds --Peripheral neuropathy; --History of depression; stable on meds --Tobacco use; counseling Disposition: DC-01 TO HOME OR SELFCARE Time spent for discharge: 32 min Core Measure Documentation - Palliative Care Palliative Care/ Comfort Measures: Not Applicable - Core Measures Any of the following diagnoses?: none Exam - Constitutional Vitals: Temp Pulse Resp BP Pulse Ox 98.7 F 97 H 20 138/62 95 01/01/18 12:18 01/01/18 12:18 01/01/18 12:18 01/01/18 12:18 12/31/17 23:24 General appearance: Present: no acute distress, well-nourished - EENT Eyes: Present: PERRL, EOM intact - Neck Neck: Present: supple, normal ROM - Respiratory Respiratory effort: normal Respiratory: negative: rales, rhonchi, wheezing - Cardiovascular Rhythm: regular Heart Sounds: Present: S1 & S2 - Extremities Extremities: no ischemia, No edema - Abdominal General gastrointestinal: Present: soft, non-tender, non-distended, normal bowel sounds - Integumentary Integumentary: Present: clear, warm - Musculoskeletal Musculoskeletal: strength equal bilaterally - Psychiatric Psychiatric: appropriate mood/affect, cooperative - Neurologic Neurologic: CNII-XII intact, moves all extremities Plan Activity: no restrictions Diet: low salt, other (cardiac diet) Special Instructions: smoking cessation Additional Instructions: Plenty oral fluids. smoking cessation. Check BMP in 2 -3 days at PMD office Follow up with: PRIMARY CARE, [Primary Care Provider] - 3-5 Days AUBREY FRANCO MD [Staff Physician] - 7 Days
[2018-01-02] MEDS ORDERED: LOVENOX SUB-Q SCH (10:00)
== END 2018-01-01 18:29 | disposition home or self-care (01) | DRG 391 ==
LOC: ED 15:54 → 4A 23:50 → 3A 12-31 10:58
PROVIDERS: ADMIT Internal Medicine; ATTEND Internal Medicine
PROC: 3E0234Z Introduction of Serum, Toxoid and Vaccine into Muscle, Percutaneous Approach (ICD-10-PCS; principal; 2018-01-01)
DX: K21.9 Gastro-esophageal reflux disease without esophagitis (principal); N17.0 Acute kidney failure with tubular necrosis; I50.30 Unspecified diastolic (congestive) heart failure; I73.9 Peripheral vascular disease, unspecified; I25.5 Ischemic cardiomyopathy; F17.200 Nicotine dependence, unspecified, uncomplicated; I25.110 Atherosclerotic heart disease of native coronary artery with unstable angina pectoris; E78.5 Hyperlipidemia, unspecified; G62.9 Polyneuropathy, unspecified; M19.90 Unspecified osteoarthritis, unspecified site; I95.9 Hypotension, unspecified; I11.0 Hypertensive heart disease with heart failure; Z79.82 Long term (current) use of aspirin; Z79.899 Other long term (current) drug therapy; Z71.6 Tobacco abuse counseling; Z82.49 Family history of ischemic heart disease and other diseases of the circulatory system; I25.2 Old myocardial infarction; Z95.5 Presence of coronary angioplasty implant and graft; Z23 Encounter for immunization
CPT/HCPCS: 36415; 71046; 78452; 80048; 82962; 83880; 84484; 85025; 85610; 85730; 87116; 90732; 93005; 93010; 93017; 93306; 99406; A9270-GY; A9502; J1650; J2785; J7030

== ENCOUNTER 2018-01-08 23:08 | Inpatient (IN) | payer MEDICAID ==
[2018-01-09] MEDS ORDERED: ASPIRIN PO ONE (01:01)
[2018-01-09 01:37] LABS: Basophils % (Auto) 0.2 % (0.0-1.8); Eosinophils # (Auto) 0.1 K/mm3 (0.0-0.4); Eosinophils % (Auto) 0.9 % (0.0-4.3); Hematocrit 32.1 % (35.5-45.6); Hemoglobin 10.7 gm/dl (11.8-15.2); Lymphocytes # (Auto) 1.6 K/mm3 (1.2-5.4); Lymphocytes % (Auto) 12.6 % (13.4-35.0); Mean Corpuscular HGB Conc 33 % (32-34); Mean Corpuscular Hemoglobin 31 pg (28-32); Mean Corpuscular Volume 93 fl (84-94); Monocytes # (Auto) 0.7 K/mm3 (0.0-0.8); Monocytes % (Auto) 5.8 % (0.0-7.3); Platelet Count 427 K/mm3 (140-440); Red Blood Count 3.47 M/mm3 (3.65-5.03); Red Cell Distribution Width 16.3 % (13.2-15.2)
[2018-01-09 01:50] LABS: BUN/Creatinine Ratio 14; Blood Urea Nitrogen 23 mg/dL (9-20); Hemolysis Index 2
--- NOTE | 2018-01-09 11:27 | Emergency Department Report ---
HPI - General Chief Complaint: Syncope Time Seen by Provider: 01/09/18 11:04 - HPI HPI: Room 19 The patient is a 57-year-old male presenting with chief complaint syncope and chest pain. The patient states last night at approximately 22:00 while sitting on the car he states he slowly became dizzy and nauseous and had a syncopal episode waking up on the ground feeling short of breath with chest pain. Patient described his chest pain substernal and constant. The patient's chest pain is pressure-like in nature. Patient gets his pain score 4/10. Patient missed a slight pleurisy. Patient complains of a slight headache but denies fever or any other pain. Location: [See above] Duration: [See above] Quality: [See above] Severity: Pressure Modifying factors: [see above] Context: [see above] Mode of transportation: [not driving] ED Past Medical Hx - Past Medical History Previous Medical History?: Yes Hx Hypertension: Yes Hx CVA: Yes (last 09/2017 right weakness) Hx Heart Attack/AMI: Yes (last 06/2017) Hx Congestive Heart Failure: Yes Hx Arthritis: Yes Additional medical history: Cardiomegaly, Herniated Disk, Neuropathy - Surgical History Past Surgical History?: Yes Hx Coronary Stent: Yes Additional Surgical History: Heart stents; Stents and "bubble" placed in legs. - Family History Family history: no significant - Social History Smoking Status: Current Every Day Smoker (1/3 pack per day) Substance Use Type: None (denies illicit drug use) - Medications Home Medications: Home Medications Medication Instructions Recorded Confirmed Last Taken Type Aspirin [Aspirin BABY CHEW TAB] 81 mg PO QDAY #30 tab.chew 08/28/17 Unknown Rx AtorvaSTATin [Lipitor] 40 mg PO QHS #30 tablet 08/28/17 Unknown Rx Clopidogrel [Plavix] 75 mg PO QDAY #30 tablet 08/28/17 Unknown Rx ISOSORBIDE MONOnitrate [Imdur ER] 30 mg PO DAILY #30 tablet 08/28/17 Unknown Rx Metoprolol Succinate [Toprol Xl] 50 mg PO QDAY #30 tab.er.24h 08/28/17 Unknown Rx Sertraline [Zoloft] 100 mg PO DAILY #30 tablet 08/28/17 Unknown Rx amLODIPine [Norvasc] 10 mg PO DAILY #30 tablet 08/28/17 Unknown Rx risperiDONE [RisperDAL] 1 mg PO DAILY #30 tablet 08/28/17 Unknown Rx Furosemide [Lasix TAB] 40 mg PO QDAY 01/09/18 01/09/18 Unknown History Gabapentin [Neurontin] 300 mg PO QAM 01/09/18 01/09/18 01/08/18 History Gabapentin [Neurontin] 600 mg PO QPM 01/09/18 01/09/18 Unknown History Hydrochlorothiazide [HCTZ] 25 mg PO QDAY 01/09/18 01/09/18 Unknown History Nicotine [Nicotine Patch] 1 each TD DAILY 01/09/18 01/09/18 01/08/18 History Potassium Chloride [K-Dur] 20 meq PO QDAY 01/09/18 01/09/18 Unknown History Rosuvastatin Calcium [Crestor] 40 mg PO QDAY 01/09/18 01/09/18 Unknown History Spironolactone [Aldactone] 25 mg PO QDAY 01/09/18 01/09/18 Unknown History ED Review of Systems ROS: Stated complaint: CHEST PAIN Other details as noted in HPI Constitutional: denies: fever Eyes: denies: eye pain ENT: denies: throat pain Respiratory: shortness of breath Cardiovascular: chest pain Endocrine: denies: unexplained weight loss Gastrointestinal: nausea. denies: vomiting Genitourinary: denies: dysuria Musculoskeletal: denies: back pain Skin: denies: change in color Neurological: headache, other (syncope) Physical Exam - Physical Exam Vital Signs: Vital Signs 01/09/18 01/09/18 01/09/18 00:55 04:00 08:30 Temperature 97.7 F 97.6 F 97.6 F Pulse Rate 76 71 61 Respiratory 20 20 16 Rate Blood Pressure 146/70 150/75 169/73 O2 Sat by Pulse 98 99 97 Oximetry Physical Exam: GENERAL: The patient is well-developed well-nourished []. [] HEENT: Normocephalic. Atraumatic. Extraocular motions are intact. Patient has moist mucous membranes. NECK: Supple. Trachea midline CHEST/LUNGS: Clear to auscultation. There is no respiratory distress noted. HEART/CARDIOVASCULAR: Regular. There is no tachycardia. There is no gallop rub or murmur. ABDOMEN: Abdomen is soft. There is no rebound or guarding. Patient has normal bowel sounds. There is no abdominal distention. SKIN: There is no rash. There is no edema. There is no diaphoresis. NEURO: The patient is awake, alert, and oriented. The patient is cooperative. The patient has no focal neurologic deficits. The patient has normal speech. Cranial nerves II through XII grossly intact, no drift MUSCULOSKELETAL: There is no evidence of acute injury. ED Course Vital Signs 01/09/18 01/09/18 01/09/18 00:55 04:00 08:30 Temperature 97.7 F 97.6 F 97.6 F Pulse Rate 76 71 61 Respiratory 20 20 16 Rate Blood Pressure 146/70 150/75 169/73 O2 Sat by Pulse 98 99 97 Oximetry ED Medical Decision Making - Lab Data Result diagrams: 01/09/18 01:04 01/09/18 01:04 Laboratory Tests 01/09/18 01/09/18 01/09/18 01:04 01:04 04:05 WBC 12.8 H RBC 3.47 L Hgb 10.7 L Hct 32.1 L MCV 93 MCH 31 MCHC 33 RDW 16.3 H Plt Count 427 Lymph % (Auto) 12.6 L [place] % (Auto) 5.8 Eos % (Auto) 0.9 Baso % (Auto) 0.2 Lymph # 1.6 [place] # 0.7 Eos # 0.1 Baso # 0.0 Seg Neutrophils % 80.5 H Seg Neutrophils # 10.3 H D-Dimer Sodium 140 Potassium 4.0 Chloride 96.2 L Carbon Dioxide 31 H Anion Gap 17 BUN 23 H Creatinine 1.6 H Estimated GFR 54 BUN/Creatinine Ratio 14 Glucose 102 H Calcium 10.0 Troponin T < 0.010 < 0.010 NT-Pro-B Natriuret Pep 80.50 01/09/18 01/09/18 07:23 11:29 WBC RBC Hgb Hct MCV MCH MCHC RDW Plt Count Lymph % (Auto) [place] % (Auto) Eos % (Auto) Baso % (Auto) Lymph # [place] # Eos # Baso # Seg Neutrophils % Seg Neutrophils # D-Dimer 1093.52 H Sodium Potassium Chloride Carbon Dioxide Anion Gap BUN Creatinine Estimated GFR BUN/Creatinine Ratio Glucose Calcium Troponin T < 0.010 NT-Pro-B Natriuret Pep - EKG Data -: EKG Interpreted by [place] EKG shows normal: sinus rhythm Rate: normal - EKG Data When compared to previous EKG there are: no significant change Interpretation: unchanged when compared t (12/30/2017) - Radiology Data Radiology results: report reviewed (CT head, VQ scan), image reviewed (chest x- ray, CT head, VQ scan) interpreted by me: Chest x-ray-no focal infiltrates, no pneumothorax [facility] [address] [place] [address] Cat Scan Report Signed Patient: SAV JOYA MR#: [id number] : 1960 Acct:[id number] Age/Sex: 57 / M ADM Date: 01/08/18 Loc: ED Attending Dr: Ordering Physician: JENAE GAYTAN MD Date of Service: 01/09/18 Procedure(s): CT head/brain wo con Accession Number(s): [id number] cc: JENAE GAYTAN MD CT HEAD WITHOUT CONTRAST: HISTORY: Syncope. TECHNIQUE: Sequential 2.5mm CT images. COMPARISON: 03/05/16. FINDINGS: Cerebral Parenchyma: Chronic lacunar infarct in the right thalamus is unchanged. The remainder of the brain parenchyma demonstrates normal attenuation. Cerebellum: Within normal limits. Brainstem: Within normal limits. Ventricles: Normal. Sella: Normal. Extra-axial spaces: Normal. Basal Cisterns: Normal. Intracranial Hemorrhage: None. Midline Shift: None. Calvarium: Normal. Sinuses: Normal. Mastoid Air Cells: Normal. Visualized Orbits: Normal. IMPRESSION: No acute intracranial process. Chronic lacunar infarct in the right thalamus. No change since 03/05/16. Transcribed By: TTR Dictated By: ESTEPHANIA GÓMEZ JR, MD Electronically Authenticated By: ESTEPHANIA GÓMEZ JR, MD Signed Date/Time: 01/09/18 132 DD/ 132 TD/TT: 1326 - Differential Diagnosis ACS, dysrhythmia, PE, syncope Critical care attestation.: If time is entered above; I have spent that time in minutes in the direct care of this critically ill patient, excluding procedure time. ED Disposition Clinical Impression: Syncope, Chest pain Disposition: OP ADMIT IP TO THIS HOSP Is pt being admited?: Yes Condition: Fair Instructions: Chest Pain (ED), Syncope (ED) Referrals: PRIMARY CARE, [Primary Care Provider] - 3-5 Days Time of Disposition: 14:08 (hospitalist paged (Dr Nichole))
--- NOTE | 2018-01-09 12:36 | XRay Report ---
AP CHEST: HISTORY: chest pain AP view of the chest demonstrates a normal mediastinal and cardiac contour with clear lungs and normal bony and soft tissue structures. IMPRESSION: Unremarkable AP chest.
--- NOTE | 2018-01-09 13:51 | Cat Scan Report ---
CT HEAD WITHOUT CONTRAST: HISTORY: Syncope. TECHNIQUE: Sequential 2.5mm CT images. COMPARISON: 03/05/16. FINDINGS: Cerebral Parenchyma: Chronic lacunar infarct in the right thalamus is unchanged. The remainder of the brain parenchyma demonstrates normal attenuation. Cerebellum: Within normal limits. Brainstem: Within normal limits. Ventricles: Normal. Sella: Normal. Extra-axial spaces: Normal. Basal Cisterns: Normal. Intracranial Hemorrhage: None. Midline Shift: None. Calvarium: Normal. Sinuses: Normal. Mastoid Air Cells: Normal. Visualized Orbits: Normal. IMPRESSION: No acute intracranial process. Chronic lacunar infarct in the right thalamus. No change since 03/05/16.
--- NOTE | 2018-01-09 13:58 | Nuclear Medicine Report ---
LUNG SCAN, VENTILATION AND PERFUSION: History: Chest pain, shortness of breath. Technique: 5mci of Tc99m MAA was infused for the perfusion images. 15mci XE 133 gas was inhaled for the ventilatory images. Correlation is made with a chest x-ray dated 01/09/18. Findings: Inhalation of Xenon gas demonstrates a normal distribution of the activity throughout both lungs. The wash out phases show mild retention of the radiotracer bilaterally consistent with mild obstructive pulmonary disease. After injection of Technetium 99m macroaggregated albumin gamma camera imaging of the lungs in multiple projections demonstrates normal pulmonary contours with a homogeneous distribution of activity. No focal areas of perfusion deficiency are identified. IMPRESSION: Low probability for pulmonary embolus.
--- NOTE | 2018-01-09 14:25 | History and Physical Report ---
History of Present Illness Chief complaint: I passed out again History of present illness: 57 YO Male with HTN, CAD S/P Stent Placement, OA, Diastolic CHF, DE, Nicotine Dependence presents to ED for evaluation. Pt states that he experienced an episode of syncope at 2200 hrs. Pt states that he also experienced chest discomfort with deep breathing. EMS Notified and patient transported to [facility] for further care and evaluation. Pt seen and evaluated in ED and found to have Pneumonia as well as Acute Renal Failure. Pt denies fever, chills, CP, Palpitations, Trauma, BRBPR, Unintentional weight loss, night sweats, bone pain , headache, or recent ill contacts. Pt admitted to telemetry. Pt is s/p event monitor placement in 10/04-11/03. Past History Past Medical History: CAD, heart failure, hypertension, hyperlipidemia, PVD Past Surgical History: Other (Cardiac stent placement) Social history: single, smoking Family history: hypertension Medications and Allergies Allergies Allergy/AdvReac Type Severity Reaction Status Date / Time No Known Allergies Allergy Verified 04/20/17 13:25 Home Medications Medication Instructions Recorded Confirmed Last Taken Type Aspirin [Aspirin BABY CHEW TAB] 81 mg PO QDAY #30 tab.chew 08/28/17 01/09/18 Rx AtorvaSTATin [Lipitor] 40 mg PO QHS #30 tablet 08/28/17 01/09/18 01/08/18 Rx Clopidogrel [Plavix] 75 mg PO QDAY #30 tablet 08/28/17 01/09/18 01/08/18 Rx ISOSORBIDE MONOnitrate [Imdur ER] 30 mg PO DAILY #30 tablet 08/28/17 01/09/18 Rx Metoprolol Succinate [Toprol Xl] 50 mg PO QDAY #30 tab.er.24h 08/28/17 01/09/18 01/08/18 Rx Sertraline [Zoloft] 100 mg PO DAILY #30 tablet 08/28/17 01/09/18 01/08/18 Rx amLODIPine [Norvasc] 10 mg PO DAILY #30 tablet 08/28/17 01/09/18 01/08/18 Rx risperiDONE [RisperDAL] 1 mg PO DAILY #30 tablet 08/28/17 01/09/18 01/08/18 Rx Furosemide [Lasix TAB] 40 mg PO QDAY 01/09/18 01/09/18 Unknown History Gabapentin [Neurontin] 300 mg PO QAM 01/09/18 01/09/18 01/08/18 History Gabapentin [Neurontin] 600 mg PO QPM 01/09/18 01/09/18 Unknown History Hydrochlorothiazide [HCTZ] 25 mg PO QDAY 01/09/18 01/09/18 Unknown History Nicotine [Nicotine Patch] 1 each TD DAILY 01/09/18 01/09/18 01/08/18 History Potassium Chloride [K-Dur] 20 meq PO QDAY 01/09/18 01/09/18 Unknown History Rosuvastatin Calcium [Crestor] 40 mg PO QDAY 01/09/18 01/09/18 Unknown History Spironolactone [Aldactone] 25 mg PO QDAY 01/09/18 01/09/18 Unknown History Review of Systems Constitutional: no weight loss, no weight gain, no fever, no chills Ears, nose, mouth and throat: no ear pain, no ear discharge, no tinnitis, no decreased hearing, no nose pain, no nasal congestion, no nasal discharge Cardiovascular: syncope, high blood pressure, no chest pain, no orthopnea, no palpitations Respiratory: no cough, no cough with sputum, no excessive sputum, no hemoptysis Gastrointestinal: no nausea, no vomiting, no diarrhea Genitourinary Male: no hematuria, no flank pain, no discharge, no urinary frequency, no urinary hesitancy Rectal: no pain, no incontinence, no bleeding Musculoskeletal: no neck stiffness, no neck pain, no shooting arm pain, no arm numbness/tingling, no low back pain, no shooting leg pain Integumentary: no rash, no pruritis, no redness, no sores, no wounds Neurological: no paralysis, no weakness, no parathesias, no numbness, no tingling, no seizures Psychiatric: no anxiety, no memory loss, no change in sleep habits, no sleep disturbances, no insomnia, no hypersomnia, no change in appetite Endocrine: no cold intolerance, no heat intolerance, no polyphagia, no excessive thirst, no polydipsia, no polyuria, no nocturia Hematologic/Lymphatic: no easy bruising, no easy bleeding, no lymphadenopathy, no lymphedema Allergic/Immunologic: no urticaria, no allergic rhinitis, no wheezing, no persistent infections, no anaphylaxis, no angioedema Exam - Constitutional Vitals: Temp Pulse Resp BP Pulse Ox 97.6 F 60 21 184/146 98 01/09/18 08:30 01/09/18 12:30 01/09/18 12:30 01/09/18 12:30 01/09/18 12:00 General appearance: Present: no acute distress, well-nourished - EENT Eyes: Present: PERRL ENT: hearing intact, clear oral mucosa - Neck Neck: Present: supple, normal ROM - Respiratory Respiratory effort: normal Respiratory: bilateral: CTA - Cardiovascular Heart Sounds: Present: S1 & S2. Absent: rub, click - Extremities Extremities: pulses symmetrical, No edema Peripheral Pulses: within normal limits - Abdominal General gastrointestinal: Present: soft, non-tender, non-distended, normal bowel sounds Male genitourinary: Present: normal - Integumentary Integumentary: Present: clear, warm, dry - Musculoskeletal Musculoskeletal: gait normal, strength equal bilaterally - Psychiatric Psychiatric: appropriate mood/affect, intact judgment & insight - Neurologic Neurologic: CNII-XII intact, moves all extremities Results - Labs CBC & Chem 7: 01/09/18 01:04 01/09/18 01:04 Labs: Abnormal lab results 01/09/18 01/09/18 01/09/18 Range/Units 01:04 01:04 11:29 WBC 12.8 H (4.5-11.0) K/mm3 RBC 3.47 L (3.65-5.03) M/mm3 Hgb 10.7 L (11.8-15.2) gm/dl Hct 32.1 L (35.5-45.6) % RDW 16.3 H (13.2-15.2) % Lymph % (Auto) 12.6 L (13.4-35.0) % Seg Neutrophils % 80.5 H (40.0-70.0) % Seg Neutrophils # 10.3 H (1.8-7.7) K/mm3 D-Dimer 1093.52 H (0-234) ng/mlDDU Chloride 96.2 L (98-107) mmol/L Carbon Dioxide 31 H (22-30) mmol/L BUN 23 H (9-20) mg/dL Creatinine 1.6 H (0.8-1.5) mg/dL Glucose 102 H (75-100) mg/dL Assessment and Plan - Patient Problems (1) CHF (congestive heart failure) Current Visit: Yes Status: Acute Qualifiers: Heart failure type: diastolic Plan to address problem: Admit to telemetry: strict I/O, BNP, chest x ray, cardiology consulted in ED, diuresis, afterload reduction, supplemental oxygen, (2) ARF (acute renal failure) with tubular necrosis Current Visit: Yes Status: Acute Plan to address problem: monitor uop q shift, urine electrolytes (3) Pneumonia Current Visit: Yes Status: Acute Qualifiers: Laterality: left Lung location: lower lobe of lung Plan to address problem: IV antibiotics, Chest x ray, supplemental oxygen, nebulizer therapy, monitor uop q shift, blood cultures. (4) Nicotine dependence with withdrawal Current Visit: Yes Status: Acute Qualifiers: Nicotine product type: cigarettes Qualified Code(s): F17.213 - Nicotine dependence, cigarettes, with withdrawal Plan to address problem: smoking cessation counseling, supportive care. (5) DVT prophylaxis Current Visit: Yes Status: Acute Plan to address problem: scd to ble while in bed.
[2018-01-09] MEDS ORDERED: NITROSTAT SL PRN (14:27)
[2018-01-09] MEDS ORDERED: SODIUM CHLORIDE FLUSH SYRINGE 10 ML IV PRN ×2 (14:27)
[2018-01-09] MEDS ORDERED: PROVENTIL IH PRN (14:27)
[2018-01-09] MEDS ORDERED: ZOFRAN IV PRN (14:27)
[2018-01-09] MEDS ORDERED: BABY ASPIRIN PO STA (14:33)
[2018-01-09] MEDS ORDERED: APRESOLINE IV PRN (14:34)
[2018-01-09 15:46] LABS: Chol/HDL Ratio 3.94 %
[2018-01-09] MEDS ORDERED: ROCEPHIN/NS 1 GM/50 ML 1 GM/50 ML BAG IV SCH (16:00)
[2018-01-09] MEDS ORDERED: ASPIRIN ONE (16:26)
[2018-01-09] MEDS ORDERED: ZITHROMAX 500 MG in NACL 0.9% 250ML 250 ML IV SCH (16:30)
--- NOTE | 2018-01-09 16:36 | Consultation ---
History of Present Illness Consult date: 01/09/18 Consult reason: congestive heart failure History of present illness: This is a 57yr old male with multiple medical problems. He has of known history of coronary artery disease and in June underwent PCI of the OM1 at [facility]. He was noted to have patent LAD stent and non-obstructive disease in other coronary segments at that time. Patient reports he is followed by Dr. Freire at [facility]. His latest cardiac workup was done at this hospital 2 weeks ago. He had a stress test that reports a normal myocardial perfusion. An echocardiogram documents a normal left ventricular systolic function, ejection fraction 55%. He is returns to the emergency department with syncope. A cardiac consultation was requested. Patient reports feeling dizzy and nauseous just prior to passing out. When he came to himself, he reports chest pain, shortness of breath and fatigue. He denies palpitations. He denies prior history of seizures. Head CT scan reports no acute intracranial abnormalities. Chest x-ray is unremarkable. Ventilation perfusion scan reports a low probability for pulmonary embolus. 12 lead ECG is a sinus rhythm with nonspecific T wave abnormalities. Medications and Allergies Allergies Allergy/AdvReac Type Severity Reaction Status Date / Time No Known Allergies Allergy Verified 04/20/17 13:25 Home Medications Medication Instructions Recorded Confirmed Last Taken Type Aspirin [Aspirin BABY CHEW TAB] 81 mg PO QDAY #30 tab.chew 08/28/17 01/09/18 Rx AtorvaSTATin [Lipitor] 40 mg PO QHS #30 tablet 08/28/17 01/09/18 01/08/18 Rx Clopidogrel [Plavix] 75 mg PO QDAY #30 tablet 08/28/17 01/09/18 01/08/18 Rx ISOSORBIDE MONOnitrate [Imdur ER] 30 mg PO DAILY #30 tablet 08/28/17 01/09/18 Rx Metoprolol Succinate [Toprol Xl] 50 mg PO QDAY #30 tab.er.24h 08/28/17 01/09/18 01/08/18 Rx Sertraline [Zoloft] 100 mg PO DAILY #30 tablet 08/28/17 01/09/18 01/08/18 Rx amLODIPine [Norvasc] 10 mg PO DAILY #30 tablet 08/28/17 01/09/18 01/08/18 Rx risperiDONE [RisperDAL] 1 mg PO DAILY #30 tablet 08/28/17 01/09/18 01/08/18 Rx Furosemide [Lasix TAB] 40 mg PO QDAY 01/09/18 01/09/18 Unknown History Gabapentin [Neurontin] 300 mg PO QAM 01/09/18 01/09/18 01/08/18 History Gabapentin [Neurontin] 600 mg PO QPM 01/09/18 01/09/18 Unknown History Hydrochlorothiazide [HCTZ] 25 mg PO QDAY 01/09/18 01/09/18 Unknown History Nicotine [Nicotine Patch] 1 each TD DAILY 01/09/18 01/09/18 01/08/18 History Potassium Chloride [K-Dur] 20 meq PO QDAY 01/09/18 01/09/18 Unknown History Rosuvastatin Calcium [Crestor] 40 mg PO QDAY 01/09/18 01/09/18 Unknown History Spironolactone [Aldactone] 25 mg PO QDAY 01/09/18 01/09/18 Unknown History Active Meds: Active Medications Acetaminophen (Tylenol) 650 mg PO Q4H PRN PRN Reason: Pain MILD(1-3)/Fever >100.5/SAHU Albuterol (Proventil) 2.5 mg IH Q4HRT PRN PRN Reason: Shortness Of Breath Amlodipine Besylate (Norvasc) 10 mg PO DAILY [facility] Aspirin (Baby Aspirin) 81 mg PO QDAY [facility] Atorvastatin Calcium (Lipitor) 80 mg PO QHS [facility] Clopidogrel Bisulfate (Plavix) 75 mg PO QDAY [facility] Famotidine (Pepcid) 20 mg PO BID [facility] Furosemide (Lasix) 40 mg IV QDAY [facility] Gabapentin (Neurontin) 300 mg PO QAM [facility] Gabapentin (Neurontin) 600 mg PO QPM [facility] Hydralazine HCl (Apresoline) 10 mg IV Q6HR PRN PRN Reason: Hypertension Hydrochlorothiazide (Hctz) 25 mg PO QDAY [facility] Azithromycin 500 mg/ Sodium (Chloride) 250 mls @ 250 mls/hr IV Q24H [facility]; Protocol Ceftriaxone Sodium (Rocephin/Ns 1 Gm/50 Ml) 1 gm in 50 mls @ 100 mls/hr IV Q24H [facility]; Protocol Isosorbide Mononitrate (Imdur) 30 mg PO DAILY [facility] Metoprolol Succinate (Toprol Xl) 50 mg PO QDAY [facility] Nicotine (Habitrol) 14 mg TD Q24H [facility] Nitroglycerin (Nitrostat) 0.4 mg SL Q5M PRN PRN Reason: Chest Pain Ondansetron HCl (Zofran) 4 mg IV Q8H PRN PRN Reason: Nausea And Vomiting Potassium Chloride (K-Dur) 20 meq PO QDAY [facility] Risperidone (Risperdal) 1 mg PO DAILY [facility] Sertraline HCl (Zoloft) 100 mg PO DAILY [facility] Sodium Chloride (Sodium Chloride Flush Syringe 10 Ml) 10 ml IV BID [facility] Sodium Chloride (Sodium Chloride Flush Syringe 10 Ml) 10 ml IV PRN PRN PRN Reason: LINE FLUSH Spironolactone (Aldactone) 25 mg PO QDAY [facility] Physical Examination Vital Signs Temp Pulse Resp BP Pulse Ox 97.7 F 76 20 146/70 98 01/09/18 00:55 01/09/18 00:55 01/09/18 00:55 01/09/18 00:55 01/09/18 00:55 General appearance: no acute distress HEENT: Positive: PERRL Cardiac: Positive: Reg Rate and Rhythm Lungs: Positive: Decreased Breath Sounds Neuro: Positive: Grossly Intact Extremities: Absent: edema Results 01/09/18 01:04 01/09/18 01:04 Lipids 01/09/18 Range/Units 14:57 Triglycerides 75 (2-149) mg/dL Cholesterol 146 (50-199) mg/dL HDL Cholesterol 37 L (40-59) mg/dL Cholesterol/HDL Ratio 3.94 % CBC 01/09/18 Range/Units 01:04 WBC 12.8 H (4.5-11.0) K/mm3 RBC 3.47 L (3.65-5.03) M/mm3 Hgb 10.7 L (11.8-15.2) gm/dl Hct 32.1 L (35.5-45.6) % Plt Count 427 (140-440) K/mm3 Lymph # 1.6 (1.2-5.4) K/mm3 [place] # 0.7 (0.0-0.8) K/mm3 Eos # 0.1 (0.0-0.4) K/mm3 Baso # 0.0 (0.0-0.1) K/mm3 Comprehensive Metabolic Panel 01/09/18 Range/Units 01:04 Sodium 140 (137-145) mmol/L Potassium 4.0 (3.6-5.0) mmol/L Chloride 96.2 L (98-107) mmol/L Carbon Dioxide 31 H (22-30) mmol/L BUN 23 H (9-20) mg/dL Creatinine 1.6 H (0.8-1.5) mg/dL Glucose 102 H (75-100) mg/dL Calcium 10.0 (8.4-10.2) mg/dL Assessment and Plan Syncope Head CT scan reports no acute intracranial abnormalities. Chest x-ray is unremarkable. Ventilation perfusion scan reports a low probability for pulmonary embolus. Hx of CAD Hx of PAD HTN Tobacco use Cardiac workup 12/2017: Normal myocardial perfusion. Echocardiogram documents a normal left ventricular systolic function, ejection fraction 55%.
[2018-01-09] MEDS: SODIUM CHLORIDE FLUSH SYRINGE 10 ML IV SCH (22:00)
[2018-01-09] MEDS: PEPCID PO SCH (22:00)
--- NOTE | 2018-01-10 09:01 | Progress Note ---
Assessment and Plan Syncope Head CT scan reports no acute intracranial abnormalities. Chest x-ray is unremarkable. Ventilation perfusion scan reports a low probability for pulmonary embolus. Hx of CAD Hx of PAD HTN Tobacco use Cardiac workup 12/2017: Normal myocardial perfusion. Echocardiogram documents a normal left ventricular systolic function, ejection fraction 55%. Recommendations: No cardiac dysrhythmias on telemetry. We will recommend an event monitor as outpatient. Otherwise no additional ischemic cardiac workup is indicated. We will defer to internal medicine service for neurological assessment. Patient advised to follow up with his primary radio board operator announcer at [facility] within 3-5 days of discharge. Subjective Date of service: 01/10/18 Interval history: Patient is resting in bed comfortably. No events on telemetry monitoring overnight. Objective Vital Signs Temp Pulse Resp BP BP Pulse Ox 01/10/18 07:40 98.5 F 60 20 141/57 97 01/10/18 05:05 98.5 F 59 L 18 142/64 99 01/10/18 02:09 98 01/10/18 01:46 62 01/10/18 00:00 98.2 F 65 18 133/56 98 01/09/18 22:00 99 01/09/18 20:00 98.2 F 62 18 124/54 99 01/09/18 17:00 59 L 18 139/45 99 01/09/18 16:30 61 17 144/65 97 01/09/18 16:00 58 L 18 141/55 98 01/09/18 15:30 56 L 17 131/51 100 01/09/18 15:00 63 12 147/64 100 01/09/18 14:30 60 15 147/64 100 01/09/18 14:00 60 22 148/73 100 01/09/18 13:56 184/146 100 01/09/18 12:30 60 21 184/146 01/09/18 12:00 63 13 184/146 98 01/09/18 11:49 16 100 01/09/18 11:30 57 L 12 100 01/09/18 11:04 61 15 88 - Physical Examination General: No Apparent Distress HEENT: Positive: PERRL Cardiac: Positive: Reg Rate and Rhythm Neuro: Positive: Grossly Intact Extremities: Absent: edema - Labs and Meds Lipids 01/09/18 Range/Units 14:57 Triglycerides 75 (2-149) mg/dL Cholesterol 146 (50-199) mg/dL HDL Cholesterol 37 L (40-59) mg/dL Cholesterol/HDL Ratio 3.94 %
[2018-01-10] MEDS ORDERED: NON-FORMULARY (Rosuvastatin Calcium [Crestor] 40 MG) PO SCH (10:00)
[2018-01-10] MEDS: ZOLOFT PO SCH (11:00)
[2018-01-10] MEDS: IMDUR PO SCH (11:09)
[2018-01-10] MEDS: LASIX IV SCH (11:11)
[2018-01-10] MEDS: K-DUR PO SCH (11:12)
[2018-01-10] MEDS: HCTZ PO SCH (11:12)
[2018-01-10] MEDS: TOPROL XL PO SCH (11:12)
[2018-01-10] MEDS: TYLENOL PO PRN (11:12)
[2018-01-10] MEDS: NEURONTIN PO SCH ×2 (11:12→23:21)
[2018-01-10] MEDS: PEPCID PO SCH ×2 (11:13→22:00)
[2018-01-10] MEDS: RisperDAL PO SCH (11:13)
[2018-01-10] MEDS: PLAVIX PO SCH (11:14)
[2018-01-10] MEDS: BABY ASPIRIN PO SCH (11:14)
[2018-01-10] MEDS: ALDACTONE PO SCH (11:49)
[2018-01-10] MEDS: NORVASC PO SCH (11:49)
[2018-01-10] MEDS: SODIUM CHLORIDE FLUSH SYRINGE 10 ML IV SCH ×2 (11:50→23:22)
--- NOTE | 2018-01-10 13:00 | Progress Note ---
Assessment and Plan Assessment and plan: Mr. Goldberg is a 57 yo man with a history of HTN, CAD S/P Stent Placement, OA, prior CVA, Diastolic CHF, VT, Nicotine Dependence and PAD s/p unspecific procedure who pw syncope and chest pains. Just discharged on 01/01/18. * pCXR unremarkable * CT head wo contrast Normal. IMPRESSION: No acute intracranial process. Chronic lacunar infarct in the right thalamus. No change since 03/05/16. * V/Q scan low prob for PE -Syncope appears to be autonomic dysfunction: get ECHO, continue telemetry monitoring -Chest pains,atypical, suspect GERD related: Cardiology evaluated, treat with ppi -Chronic Diastolic heart failure, stable: Admit to telemetry: strict I/O, BNP, chest x ray, cardiology consulted in ED, diuresis, afterload reduction, supplemental oxygen, -ARF (acute renal failure) with tubular necrosis: monitor uop q shift, urine electrolytes, consulted nephrology -no Pneumonia on CXR: IV antibiotics, Chest x ray, supplemental oxygen, nebulizer therapy, monitor uop q shift, blood cultures. -Nicotine dependence: smoking cessation counseling, supportive care. -DVT prophylaxis: scd to ble while in bed, added sq heparin -PAD: get arterial leg dopplers New issue: lost of sensation to right foot and unable to move right toes this morning: So, patient is complaining of both sensory and motor dysfunction: will get mri brain and arterial dopplers. History Interval history: Patient was seen and examined. Follow-up on current diagnosis. Overnight uneventful. Patient denies any chest pain, shortness breath, nausea/vomiting or severe headaches. Imaging, nursing note, chart, labs and old chart reviewed. Discussed with patient. He complains of no feeling in right foot and unable to move right toes. Hospitalist Physical - Physical exam Narrative exam: GEN: WDWN, NAD, Awake, Alert, Orientated x 3 HEENT: NCAT, EOMI, PERRL, OP Clear NECK: supple, no adenopathy, no thyromegaly, no JVD CVS/HEART: RRR, normal S1S2, pulses present bilaterally CHEST/LUNGS: CTA B, Symmetrical chest expansion, good air entry bilaterally GI/Abdomen: soft, NTND, good bowel sounds, no guarding or rebound /Bladder: no suprapubic tenderness, no CVA or paraspinal tenderness EXT/Skin: no c/c/e, no obvious rash MSK: FROM x 4 Neuro: CN 2-12 grossly intact, pt says he has no feeling in right foot and can' t move right toes, +dp present Psych: calm - Constitutional Vitals: Temp Pulse Resp BP Pulse Ox 97.9 F 60 18 128/53 96 01/10/18 11:00 01/10/18 11:49 01/10/18 11:00 01/10/18 11:00 01/10/18 11:00 General appearance: Present: no acute distress Results - Labs CBC & Chem 7: 01/09/18 01:04 01/09/18 01:04 Labs: Laboratory Last Values WBC 12.8 K/mm3 (4.5-11.0) H 01/09/18 01:04 RBC 3.47 M/mm3 (3.65-5.03) L 01/09/18 01:04 Hgb 10.7 gm/dl (11.8-15.2) L 01/09/18 01:04 Hct 32.1 % (35.5-45.6) L 01/09/18 01:04 MCV 93 fl (84-94) 01/09/18 01:04 MCH 31 pg (28-32) 01/09/18 01:04 MCHC 33 % (32-34) 01/09/18 01:04 RDW 16.3 % (13.2-15.2) H 01/09/18 01:04 Plt Count 427 K/mm3 (140-440) 01/09/18 01:04 Lymph % (Auto) 12.6 % (13.4-35.0) L 01/09/18 01:04 [place] % (Auto) 5.8 % (0.0-7.3) 01/09/18 01:04 Eos % (Auto) 0.9 % (0.0-4.3) 01/09/18 01:04 Baso % (Auto) 0.2 % (0.0-1.8) 01/09/18 01:04 Lymph # 1.6 K/mm3 (1.2-5.4) 01/09/18 01:04 [place] # 0.7 K/mm3 (0.0-0.8) 01/09/18 01:04 Eos # 0.1 K/mm3 (0.0-0.4) 01/09/18 01:04 Baso # 0.0 K/mm3 (0.0-0.1) 01/09/18 01:04 Seg Neutrophils % 80.5 % (40.0-70.0) H 01/09/18 01:04 Seg Neutrophils # 10.3 K/mm3 (1.8-7.7) H 01/09/18 01:04 D-Dimer 1093.52 ng/mlDDU (0-234) H 01/09/18 11:29 Sodium 140 mmol/L (137-145) 01/09/18 01:04 Potassium 4.0 mmol/L (3.6-5.0) 01/09/18 01:04 Chloride 96.2 mmol/L (98-107) L 01/09/18 01:04 Carbon Dioxide 31 mmol/L (22-30) H 01/09/18 01:04 Anion Gap 17 mmol/L 01/09/18 01:04 BUN 23 mg/dL (9-20) H 01/09/18 01:04 Creatinine 1.6 mg/dL (0.8-1.5) H 01/09/18 01:04 Estimated GFR 54 ml/min 01/09/18 01:04 BUN/Creatinine Ratio 14 % 01/09/18 01:04 Glucose 102 mg/dL (75-100) H 01/09/18 01:04 Calcium 10.0 mg/dL (8.4-10.2) 01/09/18 01:04 Troponin T < 0.010 ng/mL (0.00-0.029) 01/09/18 18:52 NT-Pro-B Natriuret Pep 80.50 pg/mL (0-900) 01/09/18 01:04 Triglycerides 75 mg/dL (2-149) 01/09/18 14:57 Cholesterol 146 mg/dL (50-199) 01/09/18 14:57 LDL Cholesterol Direct 100 mg/dL (50-130) 01/09/18 14:57 HDL Cholesterol 37 mg/dL (40-59) L 01/09/18 14:57 Cholesterol/HDL Ratio 3.94 % 01/09/18 14:57
--- NOTE | 2018-01-10 14:29 | Magnetic Resonance Report ---
MRI OF THE BRAIN WITHOUT CONTRAST: HISTORY: CVA PROCEDURE: Multiplanar, multisequence MR imaging of the brain without IV contrast was performed. FINDINGS: The brain parenchyma signal intensity and its valero white interface are within normal limits on all sequences. Mild nonspecific chronic white matter changes are noted. No No evidence for acute ischemia, hemorrhage or mass. No chronic infarct or extra-axial fluid collection. The midline structures are central. The basal cisterns are patent. Normal ventricular size. The orbital cavities and sella turcica demonstrate no abnormality. The visualized paranasal sinuses and mastoid air cells are well aerated. IMPRESSION: Unremarkable non-enhanced MRI of the brain.
--- NOTE | 2018-01-10 14:29 | Magnetic Resonance Report ---
MRA HEAD WITHOUT CONTRAST HISTORY: Stroke. [id number] imaging with MIP reformations of the [place] of [place] is submitted. The arteries appear widely patent and free of hemodynamically significant stenosis, aneurysm or dissection. IMPRESSION: No evidence for large vessel occlusion or aneurysm.
[2018-01-10 23:37] LABS: Bilirubin,Urine NEG (Negative); Blood,Urine NEG (Negative); Color,Urine Yellow (Yellow); Protein,Urine <15 mg/dL mg/dL (Negative); Urobilinogen,Urine < 2.0 mg/dL (<2.0); WBC,Urine < 1.0 /HPF (0.0-6.0)
[2018-01-11] MEDS: TYLENOL PO PRN ×2 (01:21→23:13)
[2018-01-11 07:43] LABS: Hematocrit 28.1 % (35.5-45.6); Hemoglobin 9.5 gm/dl (11.8-15.2); Mean Corpuscular HGB Conc 34 % (32-34); Mean Corpuscular Hemoglobin 31 pg (28-32); Mean Corpuscular Volume 93 fl (84-94); Platelet Count 385 K/mm3 (140-440); Red Blood Count 3.03 M/mm3 (3.65-5.03); Red Cell Distribution Width 16.5 % (13.2-15.2)
[2018-01-11 08:03] LABS: BUN/Creatinine Ratio 19; Blood Urea Nitrogen 27 mg/dL (9-20); Calcium 9.2 mg/dL (8.4-10.2); Hemolysis Index 12
--- NOTE | 2018-01-11 10:13 | Progress Note ---
Assessment and Plan Syncope Head CT scan reports no acute intracranial abnormalities. Chest x-ray is unremarkable. Ventilation perfusion scan reports a low probability for pulmonary embolus. Hx of CAD Hx of PAD HTN Tobacco use Cardiac workup 12/2017: Normal myocardial perfusion. Echocardiogram documents a normal left ventricular systolic function, ejection fraction 55%. Recommendations: No cardiac dysrhythmias on telemetry. We will recommend an event monitor as outpatient. Otherwise no additional ischemic cardiac workup is indicated. Stable, cardiac mcrae Patient advised to follow up with his primary baby counselor at [facility] within 3-5 days of discharge. Subjective Date of service: 01/11/18 Interval history: Patient reports decreased sensation of his right foot. He denies chest pain, shortness of breath and dizziness. No reported events on telemetry monitoring overnight. Objective Vital Signs Temp Pulse Pulse Resp BP Pulse Ox 01/11/18 04:39 98.4 F 53 L 20 130/57 97 01/11/18 03:10 62 100 01/11/18 00:10 59 L 01/11/18 00:07 98.4 F 58 L 20 114/52 95 01/10/18 21:09 98.5 F 54 L 20 125/57 95 01/10/18 11:49 60 01/10/18 11:12 59 L 01/10/18 11:09 59 L 01/10/18 11:00 97.9 F 61 18 128/53 96 - Physical Examination General: No Apparent Distress HEENT: Positive: PERRL Cardiac: Positive: Reg Rate and Rhythm Lungs: Positive: Decreased Breath Sounds Neuro: Positive: Grossly Intact Extremities: Absent: edema - Labs and Meds CBC 01/11/18 Range/Units 07:01 WBC 7.8 (4.5-11.0) K/mm3 RBC 3.03 L (3.65-5.03) M/mm3 Hgb 9.5 L (11.8-15.2) gm/dl Hct 28.1 L (35.5-45.6) % Plt Count 385 (140-440) K/mm3 Comprehensive Metabolic Panel 01/11/18 Range/Units 07:01 Sodium 140 (137-145) mmol/L Potassium 3.7 (3.6-5.0) mmol/L Chloride 98.4 (98-107) mmol/L Carbon Dioxide 29 (22-30) mmol/L BUN 27 H (9-20) mg/dL Creatinine 1.4 (0.8-1.5) mg/dL Glucose 90 (75-100) mg/dL Calcium 9.2 (8.4-10.2) mg/dL
--- NOTE | 2018-01-11 10:19 | Consultation ---
History of Present Illness - Reason for Consult Consult date: 01/11/18 acute renal failure Requesting physician: SHI IVY - History of Present Illness The patient is a 57-year-old male presenting with chief complaint syncope and chest pain. The patient states last night at approximately 22:00 while sitting on the car he states he slowly became dizzy and nauseous and had a syncopal episode waking up on the ground feeling short of breath with chest pain. Patient described his chest pain substernal and constant. The patient's chest pain is pressure-like in nature. Patient gets his pain score 4/10. Patient missed a slight pleurisy. Patient complains of a slight headache but denies fever or any other pain. - Past Medical History Previous Medical History?: Yes Hx Hypertension: Yes Hx CVA: Yes (last 09/2017 right weakness) Hx Heart Attack/AMI: Yes (last 06/2017) Hx Congestive Heart Failure: Yes Hx Arthritis: Yes Additional medical history: Cardiomegaly, Herniated Disk, Neuropathy - Surgical History Past Surgical History?: Yes Hx Coronary Stent: Yes Additional Surgical History: Heart stents; Stents and "bubble" placed in legs. - Family History Family history: no significant - Social History Smoking Status: Current Every Day Smoker (1/3 pack per day) ROS: Stated complaint: CHEST PAIN Other details as noted in HPI Constitutional: denies: fever Eyes: denies: eye pain ENT: denies: throat pain Respiratory: shortness of breath Cardiovascular: chest pain Endocrine: denies: unexplained weight loss Gastrointestinal: nausea. denies: vomiting Genitourinary: denies: dysuria Musculoskeletal: denies: back pain Skin: denies: change in color Neurological: headache, other (syncope) Past History Past Medical History: CAD, heart failure, hypertension, hyperlipidemia, PVD Past Surgical History: Other (Cardiac stent placement) Social history: single, smoking Family history: hypertension Medications and Allergies Allergies Allergy/AdvReac Type Severity Reaction Status Date / Time No Known Allergies Allergy Verified 04/20/17 13:25 Home Medications Medication Instructions Recorded Confirmed Last Taken Type Aspirin [Aspirin BABY CHEW TAB] 81 mg PO QDAY #30 tab.chew 08/28/17 01/09/18 Rx AtorvaSTATin [Lipitor] 40 mg PO QHS #30 tablet 08/28/17 01/09/18 01/08/18 Rx Clopidogrel [Plavix] 75 mg PO QDAY #30 tablet 08/28/17 01/09/18 01/08/18 Rx ISOSORBIDE MONOnitrate [Imdur ER] 30 mg PO DAILY #30 tablet 08/28/17 01/09/18 Rx Metoprolol Succinate [Toprol Xl] 50 mg PO QDAY #30 tab.er.24h 08/28/17 01/09/18 01/08/18 Rx Sertraline [Zoloft] 100 mg PO DAILY #30 tablet 08/28/17 01/09/18 01/08/18 Rx amLODIPine [Norvasc] 10 mg PO DAILY #30 tablet 08/28/17 01/09/18 01/08/18 Rx risperiDONE [RisperDAL] 1 mg PO DAILY #30 tablet 08/28/17 01/09/18 01/08/18 Rx Furosemide [Lasix TAB] 40 mg PO QDAY 01/09/18 01/09/18 Unknown History Gabapentin [Neurontin] 300 mg PO QAM 01/09/18 01/09/18 01/08/18 History Gabapentin [Neurontin] 600 mg PO QPM 01/09/18 01/09/18 Unknown History Hydrochlorothiazide [HCTZ] 25 mg PO QDAY 01/09/18 01/09/18 Unknown History Nicotine [Nicotine Patch] 1 each TD DAILY 01/09/18 01/09/18 01/08/18 History Potassium Chloride [K-Dur] 20 meq PO QDAY 01/09/18 01/09/18 Unknown History Rosuvastatin Calcium [Crestor] 40 mg PO QDAY 01/09/18 01/09/18 Unknown History Spironolactone [Aldactone] 25 mg PO QDAY 01/09/18 01/09/18 Unknown History Active Meds: Active Medications Acetaminophen (Tylenol) 650 mg PO Q4H PRN PRN Reason: Pain MILD(1-3)/Fever >100.5/SAHU Last Admin: 01/11/18 01:21 Dose: 650 mg Albuterol (Proventil) 2.5 mg IH Q4HRT PRN PRN Reason: Shortness Of Breath Amlodipine Besylate (Norvasc) 10 mg PO DAILY [facility] Last Admin: 01/10/18 11:49 Dose: 10 mg Aspirin (Baby Aspirin) 81 mg PO QDAY [facility] Last Admin: 01/10/18 11:14 Dose: 81 mg Atorvastatin Calcium (Lipitor) 80 mg PO QHS [facility] Last Admin: 01/10/18 22:00 Dose: 80 mg Clopidogrel Bisulfate (Plavix) 75 mg PO QDAY [facility] Last Admin: 01/10/18 11:14 Dose: 75 mg Famotidine (Pepcid) 20 mg PO BID [facility] Last Admin: 01/10/18 22:00 Dose: 20 mg Furosemide (Lasix) 40 mg IV QDAY [facility] Last Admin: 01/10/18 11:11 Dose: 40 mg Gabapentin (Neurontin) 300 mg PO QAM [facility] Last Admin: 01/10/18 11:12 Dose: 300 mg Gabapentin (Neurontin) 600 mg PO QPM [facility] Last Admin: 01/10/18 23:21 Dose: 600 mg Heparin Sodium (Porcine) (Heparin) 5,000 unit SUB-Q Q12HR [facility] Hydralazine HCl (Apresoline) 10 mg IV Q6HR PRN PRN Reason: Hypertension Hydrochlorothiazide (Hctz) 25 mg PO QDAY [facility] Last Admin: 01/10/18 11:12 Dose: 25 mg Isosorbide Mononitrate (Imdur) 30 mg PO DAILY [facility] Last Admin: 01/10/18 11:09 Dose: 30 mg Metoprolol Succinate (Toprol Xl) 50 mg PO QDAY [facility] Last Admin: 01/10/18 11:12 Dose: 50 mg Nicotine (Habitrol) 14 mg TD Q24H [facility] Nitroglycerin (Nitrostat) 0.4 mg SL Q5M PRN PRN Reason: Chest Pain Ondansetron HCl (Zofran) 4 mg IV Q8H PRN PRN Reason: Nausea And Vomiting Potassium Chloride (K-Dur) 20 meq PO QDAY [facility] Last Admin: 01/10/18 11:12 Dose: 20 meq Risperidone (Risperdal) 1 mg PO DAILY [facility] Last Admin: 01/10/18 11:13 Dose: 1 mg Sertraline HCl (Zoloft) 100 mg PO DAILY [facility] Last Admin: 01/10/18 11:00 Dose: Not Given Sodium Chloride (Sodium Chloride Flush Syringe 10 Ml) 10 ml IV BID [facility] Last Admin: 01/10/18 23:22 Dose: 10 ml Sodium Chloride (Sodium Chloride Flush Syringe 10 Ml) 10 ml IV PRN PRN PRN Reason: LINE FLUSH Spironolactone (Aldactone) 25 mg PO QDAY [facility] Last Admin: 01/10/18 11:49 Dose: 25 mg Exam - Vital Signs Vital signs: Vital Signs Temp Pulse Resp BP Pulse Ox 97.7 F 76 20 146/70 98 01/09/18 00:55 01/09/18 00:55 01/09/18 00:55 01/09/18 00:55 01/09/18 00:55 - Physical Exam Narrative exam: GENERAL: The patient is well-developed well-nourished []. [] HEENT: Normocephalic. Atraumatic. Extraocular motions are intact. Patient has moist mucous membranes. NECK: Supple. Trachea midline CHEST/LUNGS: Clear to auscultation. There is no respiratory distress noted. HEART/CARDIOVASCULAR: Regular. There is no tachycardia. There is no gallop rub or murmur. ABDOMEN: Abdomen is soft. There is no rebound or guarding. Patient has normal bowel sounds. There is no abdominal distention. SKIN: There is no rash. There is no edema. There is no diaphoresis. NEURO: The patient is awake, alert, and oriented. The patient is cooperative. The patient has no focal neurologic deficits. The patient has normal speech. Cranial nerves II through XII grossly intact, no drift MUSCULOSKELETAL: There is no evidence of acute injury. Results - Lab Results 01/11/18 07:01 01/11/18 07:01 Most recent lab results Calcium 9.2 mg/dL (8.4-10.2) 01/11/18 07:01 Assessment and Plan impression: * MELISA * Syncope * CAD * PVD * HTN Plan: * cr is better * avoid nephrotoxins * strict i/os * lytes prn * increase volume intake * ok to dc from renal standpoint, can follow up in office in 2 weeks
[2018-01-11] MEDS ORDERED: NACL 0.45% 1000 ML 1,000 ML IV SCH (11:00)
[2018-01-11] MEDS: HCTZ PO SCH (11:40)
[2018-01-11] MEDS: IMDUR PO SCH (11:40)
[2018-01-11] MEDS: TOPROL XL PO SCH (11:40)
[2018-01-11] MEDS: LASIX IV SCH (11:43)
[2018-01-11] MEDS: ZOLOFT PO SCH (11:43)
[2018-01-11] MEDS: RisperDAL PO SCH (11:43)
[2018-01-11] MEDS: K-DUR PO SCH (11:44)
[2018-01-11] MEDS: ALDACTONE PO SCH (11:44)
[2018-01-11] MEDS: PEPCID PO SCH ×2 (11:44→22:00)
[2018-01-11] MEDS: NEURONTIN PO SCH ×2 (11:44→18:41)
[2018-01-11] MEDS: BABY ASPIRIN PO SCH (11:44)
[2018-01-11] MEDS: PLAVIX PO SCH (11:44)
[2018-01-11] MEDS: NORVASC PO SCH (11:44)
--- NOTE | 2018-01-11 12:38 | Progress Note ---
Assessment and Plan Assessment and plan: Mr. Goldberg is a 57 yo man with a history of HTN, CAD S/P Stent Placement, OA, prior CVA, Diastolic CHF, OK, Nicotine Dependence and PAD s/p unspecific procedure who pw syncope and chest pains. Just discharged on 01/01/18. * pCXR unremarkable * CT head wo contrast Normal. IMPRESSION: No acute intracranial process. Chronic lacunar infarct in the right thalamus. No change since 03/05/16. * V/Q scan low prob for PE -Syncope appears to be autonomic dysfunction: ECHO canceled b/c he just had Echo , continue telemetry monitoring -Chest pains,atypical, suspect GERD related: Cardiology evaluated, treat with ppi -Chronic Diastolic heart failure, stable: Admit to telemetry: strict I/O, BNP, chest x ray, cardiology consulted in ED, diuresis, afterload reduction, supplemental oxygen, -ARF (acute renal failure) with tubular necrosis: monitor uop q shift, urine electrolytes, consulted nephrology -no Pneumonia on CXR: IV antibiotics stopped, Chest x ray, supplemental oxygen , nebulizer therapy, monitor uop q shift, blood cultures. -Nicotine dependence: smoking cessation counseling, supportive care. -DVT prophylaxis: scd to ble while in bed, heparin drip -Right ischemic leg with h/o PAD s/p leg stents placed November 09, 2017 at [facility]: get arterial leg dopplers, on plavix New issue: lost of sensation to right foot and unable to move right toes this morning: So, patient is complaining of both sensory and motor dysfunction: will get mri brain and arterial dopplers. MRI and MRA brain negative for acute stroke. Arterial dopplers reveal Right SFA, popiteal artery and ALETA occluded. I contacted Dr. Wallace who is instructed me to call Dr. Love. I spoke with Dr. Love and he will evaluate, in the meantime, I called Cardiology Start IV heparin drip protocol and close monitoring CCT 35 minutes History Interval history: Patient was seen and examined. Follow-up on current diagnosis. Overnight uneventful. Patient denies any chest pain, shortness breath, nausea/vomiting or severe headaches. Imaging, nursing note, chart, labs and old chart reviewed. Discussed with patient. He complains of no feeling in right foot and unable to move right toes. Hospitalist Physical - Physical exam Narrative exam: GEN: WDWN, NAD, Awake, Alert, Orientated x 3 HEENT: NCAT, EOMI, PERRL, OP Clear NECK: supple, no adenopathy, no thyromegaly, no JVD CVS/HEART: RRR, normal S1S2, pulses present bilaterally CHEST/LUNGS: CTA B, Symmetrical chest expansion, good air entry bilaterally GI/Abdomen: soft, NTND, good bowel sounds, no guarding or rebound /Bladder: no suprapubic tenderness, no CVA or paraspinal tenderness EXT/Skin: no c/c/e, no obvious rash MSK: FROM x 4 Neuro: CN 2-12 grossly intact, pt says he has no feeling in right foot and can' t move right toes, +dp absent today Psych: calm - Constitutional Vitals: Temp Pulse Resp BP Pulse Ox 98.4 F 60 20 130/57 97 01/11/18 04:39 01/11/18 11:40 01/11/18 04:39 01/11/18 04:39 01/11/18 04:39 General appearance: Present: no acute distress Results - Labs CBC & Chem 7: 01/11/18 07:01 01/11/18 07:01 Labs: Laboratory Last Values WBC 7.8 K/mm3 (4.5-11.0) 01/11/18 07:01 RBC 3.03 M/mm3 (3.65-5.03) L 01/11/18 07:01 Hgb 9.5 gm/dl (11.8-15.2) L 01/11/18 07:01 Hct 28.1 % (35.5-45.6) L 01/11/18 07:01 MCV 93 fl (84-94) 01/11/18 07:01 MCH 31 pg (28-32) 01/11/18 07:01 MCHC 34 % (32-34) 01/11/18 07:01 RDW 16.5 % (13.2-15.2) H 01/11/18 07:01 Plt Count 385 K/mm3 (140-440) 01/11/18 07:01 Lymph % (Auto) 12.6 % (13.4-35.0) L 01/09/18 01:04 [place] % (Auto) 5.8 % (0.0-7.3) 01/09/18 01:04 Eos % (Auto) 0.9 % (0.0-4.3) 01/09/18 01:04 Baso % (Auto) 0.2 % (0.0-1.8) 01/09/18 01:04 Lymph # 1.6 K/mm3 (1.2-5.4) 01/09/18 01:04 [place] # 0.7 K/mm3 (0.0-0.8) 01/09/18 01:04 Eos # 0.1 K/mm3 (0.0-0.4) 01/09/18 01:04 Baso # 0.0 K/mm3 (0.0-0.1) 01/09/18 01:04 Seg Neutrophils % 80.5 % (40.0-70.0) H 01/09/18 01:04 Seg Neutrophils # 10.3 K/mm3 (1.8-7.7) H 01/09/18 01:04 D-Dimer 1093.52 ng/mlDDU (0-234) H 01/09/18 11:29 Sodium 140 mmol/L (137-145) 01/11/18 07:01 Potassium 3.7 mmol/L (3.6-5.0) 01/11/18 07:01 Chloride 98.4 mmol/L (98-107) 01/11/18 07:01 Carbon Dioxide 29 mmol/L (22-30) 01/11/18 07:01 Anion Gap 16 mmol/L 01/11/18 07:01 BUN 27 mg/dL (9-20) H 01/11/18 07:01 Creatinine 1.4 mg/dL (0.8-1.5) 01/11/18 07:01 Estimated GFR > 60 ml/min 01/11/18 07:01 BUN/Creatinine Ratio 19 % 01/11/18 07:01 Glucose 90 mg/dL (75-100) 01/11/18 07:01 Calcium 9.2 mg/dL (8.4-10.2) 01/11/18 07:01 Troponin T < 0.010 ng/mL (0.00-0.029) 01/09/18 18:52 NT-Pro-B Natriuret Pep 80.50 pg/mL (0-900) 01/09/18 01:04 Triglycerides 75 mg/dL (2-149) 01/09/18 14:57 Cholesterol 146 mg/dL (50-199) 01/09/18 14:57 LDL Cholesterol Direct 100 mg/dL (50-130) 01/09/18 14:57 HDL Cholesterol 37 mg/dL (40-59) L 01/09/18 14:57 Cholesterol/HDL Ratio 3.94 % 01/09/18 14:57 Urine Color Yellow (Yellow) 01/10/18 23:00 Urine Turbidity Clear (Clear) 01/10/18 23:00 Urine pH 5.0 (5.0-7.0) 01/10/18 23:00 Ur Specific [place] 1.012 (1.003-1.030) 01/10/18 23:00 Urine Protein <15 mg/dl mg/dL (Negative) 01/10/18 23:00 Urine Glucose (UA) Neg mg/dL (Negative) 01/10/18 23:00 Urine Ketones Neg mg/dL (Negative) 01/10/18 23:00 Urine Blood Neg (Negative) 01/10/18 23:00 Urine Nitrite Neg (Negative) 01/10/18 23:00 Urine Bilirubin Neg (Negative) 01/10/18 23:00 Urine Urobilinogen < 2.0 mg/dL (<2.0) 01/10/18 23:00 Ur Leukocyte Esterase Neg (Negative) 01/10/18 23:00 Urine WBC (Auto) < 1.0 /HPF (0.0-6.0) 01/10/18 23:00 Urine RBC (Auto) 2.0 /HPF (0.0-6.0) 01/10/18 23:00
[2018-01-11] MEDS ORDERED: HEPARIN/ 0.45% NACL-25,000 UNIT/500 ML 25,000 UNIT/500 ML BAG IV SCH (13:00)
[2018-01-11] MEDS ORDERED: HEPARIN SUB-Q SCH (13:08)
--- NOTE | 2018-01-11 15:22 | Consultation ---
History of Present Illness - Reason for Consult Consult date: 01/11/18 right foot numbness Requesting physician: SHI IVY - History of Present Illness 57 yo M with prior bilateral lower extremity stents by vascular surgeon at [facility]. Had an appointment with this surgeon this week but missed appt due to hospitalization for syncope, chest pain. He reports worsening claudication symptoms for several months. Complained of right foot numbness and could not move toes starting yesterday. No h/o A fib. On arterial duplex he has bilateral SFA occlusions consistent with chronic PAD, and on the right affected limb he has flow in the right posterior tibial which is his only runoff. Past History Past Medical History: CAD, heart failure, hypertension, hyperlipidemia, PVD Past Surgical History: Other (Cardiac stent placement, Bilateral lower extremity sfa stent placements) Social history: single, smoking Family history: hypertension Medications and Allergies Allergies Allergy/AdvReac Type Severity Reaction Status Date / Time No Known Allergies Allergy Verified 04/20/17 13:25 Home Medications Medication Instructions Recorded Confirmed Last Taken Type Aspirin [Aspirin BABY CHEW TAB] 81 mg PO QDAY #30 tab.chew 08/28/17 01/09/18 Rx AtorvaSTATin [Lipitor] 40 mg PO QHS #30 tablet 08/28/17 01/09/18 01/08/18 Rx Clopidogrel [Plavix] 75 mg PO QDAY #30 tablet 08/28/17 01/09/18 01/08/18 Rx ISOSORBIDE MONOnitrate [Imdur ER] 30 mg PO DAILY #30 tablet 08/28/17 01/09/18 Rx Metoprolol Succinate [Toprol Xl] 50 mg PO QDAY #30 tab.er.24h 08/28/17 01/09/18 01/08/18 Rx Sertraline [Zoloft] 100 mg PO DAILY #30 tablet 08/28/17 01/09/18 01/08/18 Rx amLODIPine [Norvasc] 10 mg PO DAILY #30 tablet 08/28/17 01/09/18 01/08/18 Rx risperiDONE [RisperDAL] 1 mg PO DAILY #30 tablet 08/28/17 01/09/18 01/08/18 Rx Furosemide [Lasix TAB] 40 mg PO QDAY 01/09/18 01/09/18 Unknown History Gabapentin [Neurontin] 300 mg PO QAM 01/09/18 01/09/18 01/08/18 History Gabapentin [Neurontin] 600 mg PO QPM 01/09/18 01/09/18 Unknown History Hydrochlorothiazide [HCTZ] 25 mg PO QDAY 01/09/18 01/09/18 Unknown History Nicotine [Nicotine Patch] 1 each TD DAILY 01/09/18 01/09/18 01/08/18 History Potassium Chloride [K-Dur] 20 meq PO QDAY 01/09/18 01/09/18 Unknown History Rosuvastatin Calcium [Crestor] 40 mg PO QDAY 01/09/18 01/09/18 Unknown History Spironolactone [Aldactone] 25 mg PO QDAY 01/09/18 01/09/18 Unknown History Active Meds: Active Medications Acetaminophen (Tylenol) 650 mg PO Q4H PRN PRN Reason: Pain MILD(1-3)/Fever >100.5/SAHU Last Admin: 01/11/18 01:21 Dose: 650 mg Albuterol (Proventil) 2.5 mg IH Q4HRT PRN PRN Reason: Shortness Of Breath Aspirin (Baby Aspirin) 81 mg PO QDAY [facility] Last Admin: 01/11/18 11:44 Dose: 81 mg Atorvastatin Calcium (Lipitor) 80 mg PO QHS [facility] Last Admin: 01/10/18 22:00 Dose: 80 mg Clopidogrel Bisulfate (Plavix) 75 mg PO QDAY [facility] Last Admin: 01/11/18 11:44 Dose: 75 mg Famotidine (Pepcid) 20 mg PO BID [facility] Last Admin: 01/11/18 11:44 Dose: 20 mg Furosemide (Lasix) 40 mg IV QDAY [facility] Last Admin: 01/11/18 11:43 Dose: 40 mg Gabapentin (Neurontin) 300 mg PO QAM [facility] Last Admin: 01/11/18 11:44 Dose: 300 mg Gabapentin (Neurontin) 600 mg PO QPM [facility] Last Admin: 01/10/18 23:21 Dose: 600 mg Hydralazine HCl (Apresoline) 10 mg IV Q6HR PRN PRN Reason: Hypertension Hydrochlorothiazide (Hctz) 25 mg PO QDAY [facility] Last Admin: 01/11/18 11:40 Dose: 25 mg Sodium Chloride (Nacl 0.45% 1000 Ml) 1,000 mls @ 65 mls/hr IV DIRECT [facility] Last Admin: 01/11/18 11:43 Dose: 65 mls/hr Isosorbide Mononitrate (Imdur) 30 mg PO DAILY [facility] Last Admin: 01/11/18 11:40 Dose: 30 mg Metoprolol Succinate (Toprol Xl) 50 mg PO QDAY [facility] Last Admin: 01/11/18 11:40 Dose: 50 mg Nicotine (Habitrol) 14 mg TD Q24H [facility] Nifedipine (Procardia Xl) 90 mg PO QDAY [facility] Nitroglycerin (Nitrostat) 0.4 mg SL Q5M PRN PRN Reason: Chest Pain Ondansetron HCl (Zofran) 4 mg IV Q8H PRN PRN Reason: Nausea And Vomiting Potassium Chloride (K-Dur) 20 meq PO QDAY [facility] Last Admin: 01/11/18 11:44 Dose: 20 meq Risperidone (Risperdal) 1 mg PO DAILY [facility] Last Admin: 01/11/18 11:43 Dose: 1 mg Sertraline HCl (Zoloft) 100 mg PO DAILY [facility] Last Admin: 01/11/18 11:43 Dose: 100 mg Sodium Chloride (Sodium Chloride Flush Syringe 10 Ml) 10 ml IV BID [facility] Last Admin: 01/10/18 23:22 Dose: 10 ml Sodium Chloride (Sodium Chloride Flush Syringe 10 Ml) 10 ml IV PRN PRN PRN Reason: LINE FLUSH Spironolactone (Aldactone) 25 mg PO QDAY [facility] Last Admin: 01/11/18 11:44 Dose: 25 mg Review of Systems All systems: negative (right foot numb and can't move toes) Exam - Constitutional Vitals: Temp Pulse Resp BP Pulse Ox 98.4 F 60 20 130/57 97 01/11/18 04:39 01/11/18 11:40 01/11/18 04:39 01/11/18 04:39 01/11/18 04:39 General appearance: Present: no acute distress - EENT Eyes: Present: EOM intact - Neck Neck: Present: normal ROM - Respiratory Respiratory effort: normal - Cardiovascular Rhythm: regular - Extremities Extremities: no ischemia (right foot warm, no mottling), No edema, normal temperature, normal color Peripheral Pulses: abnormal (Pulses nonpalpable in both feet (symmetric vascular exam); right posterior tibial artery monophasic waveforms) - Abdominal General gastrointestinal: Present: soft, non-tender - Integumentary Integumentary: Present: clear, warm, dry. Absent: erythema - Musculoskeletal Musculoskeletal: right sided weakness - Psychiatric Psychiatric: appropriate mood/affect Results - Labs CBC & Chem 7: 01/11/18 07:01 01/11/18 07:01 Labs: Abnormal lab results 01/11/18 01/11/18 Range/Units 07:01 07:01 RBC 3.03 L (3.65-5.03) M/mm3 Hgb 9.5 L (11.8-15.2) gm/dl Hct 28.1 L (35.5-45.6) % RDW 16.5 H (13.2-15.2) % BUN 27 H (9-20) mg/dL Assessment and Plan Right foot numbness: No evidence of acute arterial occlusion, and he has arterial perfusion to the right foot via the posterior tibial artery. He has a symmetric vascular exam clinically, all of which is consistent with chronic peripheral arterial disease. I discussed with him to reschedule vascular follow up, but no indication for urgent vascular intervention.
[2018-01-11] MEDS: PROCARDIA XL PO SCH (15:41)
[2018-01-11 16:45] LABS: Hematocrit 27.7 % (35.5-45.6); Hemoglobin 9.5 gm/dl (11.8-15.2)
[2018-01-11 16:54] LABS: INR 0.92 (0.87-1.13)
[2018-01-11 16:55] LABS: Partial Thromboplastin Time 37.7 Sec. (24.2-36.6)
[2018-01-11] MEDS: HABITROL TD SCH (18:40)
[2018-01-12 08:27] LABS: BUN/Creatinine Ratio 20; Blood Urea Nitrogen 28 mg/dL (9-20); Calcium 9.2 mg/dL (8.4-10.2); Hemolysis Index 1
[2018-01-12] MEDS: SODIUM CHLORIDE FLUSH SYRINGE 10 ML IV SCH ×3 (08:54→22:28)
--- NOTE | 2018-01-12 09:42 | Progress Note ---
Assessment and Plan Syncope Head CT scan reports no acute intracranial abnormalities. Chest x-ray is unremarkable. Ventilation perfusion scan reports a low probability for pulmonary embolus. Hx of CAD Hx of PAD HTN Tobacco use Cardiac workup 12/2017: Normal myocardial perfusion. Echocardiogram documents a normal left ventricular systolic function, ejection fraction 55%. Recommendations: No cardiac dysrhythmias on telemetry. We will recommend an event monitor as outpatient. Otherwise no additional ischemic cardiac workup is indicated. Stable, cardiac mcrae for discharge. Patient advised to follow up with his primary director of construction at [facility] within 3-5 days of discharge. Subjective Date of service: 01/12/18 Interval history: No events on telemetry monitoring. Objective Vital Signs Temp Pulse Pulse Resp BP Pulse Ox 01/12/18 07:49 98.3 F 54 L 16 120/51 95 01/12/18 05:18 98.0 F 57 L 20 116/61 98 01/12/18 03:01 53 L 100 01/12/18 01:00 52 L 01/12/18 00:20 98.5 F 56 L 20 117/61 96 01/11/18 22:00 98 01/11/18 21:28 98.7 F 53 L 20 114/60 96 01/11/18 17:00 60 01/11/18 16:11 97.7 F 55 L 20 113/57 100 01/11/18 11:49 97.6 F 60 19 156/71 99 01/11/18 11:40 60 01/11/18 10:00 98 - Physical Examination General: No Apparent Distress HEENT: Positive: PERRL Cardiac: Positive: Reg Rate and Rhythm Neuro: Positive: Grossly Intact Extremities: Absent: edema - Labs and Meds Coagulation 01/11/18 Range/Units 15:59 PT 12.8 (12.2-14.9) Sec. INR 0.92 (0.87-1.13) APTT 37.7 H (24.2-36.6) Sec. CBC 01/11/18 Range/Units 15:59 Hgb 9.5 L (11.8-15.2) gm/dl Hct 27.7 L (35.5-45.6) % Plt Count 371 (140-440) K/mm3 Comprehensive Metabolic Panel 01/12/18 Range/Units 07:02 Sodium 138 (137-145) mmol/L Potassium 3.7 (3.6-5.0) mmol/L Chloride 96.3 L (98-107) mmol/L Carbon Dioxide 28 (22-30) mmol/L BUN 28 H (9-20) mg/dL Creatinine 1.4 (0.8-1.5) mg/dL Glucose 103 H (75-100) mg/dL Calcium 9.2 (8.4-10.2) mg/dL
[2018-01-12] MEDS: PROCARDIA XL PO SCH (10:37)
[2018-01-12] MEDS: TOPROL XL PO SCH (10:37)
[2018-01-12] MEDS: IMDUR PO SCH (10:37)
[2018-01-12] MEDS: NEURONTIN PO SCH ×3 (10:38→22:54)
[2018-01-12] MEDS: ZOLOFT PO SCH (10:38)
[2018-01-12] MEDS: HCTZ PO SCH (10:38)
[2018-01-12] MEDS: BABY ASPIRIN PO SCH (10:38)
[2018-01-12] MEDS: PLAVIX PO SCH (10:38)
[2018-01-12] MEDS: RisperDAL PO SCH (10:38)
[2018-01-12] MEDS: PEPCID PO SCH ×2 (10:38→22:27)
[2018-01-12] MEDS: ALDACTONE PO SCH (10:38)
[2018-01-12] MEDS: K-DUR PO SCH (10:38)
[2018-01-12] MEDS: LASIX IV SCH (10:39)
--- NOTE | 2018-01-12 11:19 | Progress Note ---
Assessment and Plan Assessment and plan: Mr. Goldberg is a 57 yo man with a history of HTN, CAD S/P Stent Placement, OA, prior CVA, Diastolic CHF, HI, Nicotine Dependence and PAD s/p unspecific procedure who pw syncope and chest pains. Just discharged on 01/01/18. * pCXR unremarkable * CT head wo contrast Normal. IMPRESSION: No acute intracranial process. Chronic lacunar infarct in the right thalamus. No change since 03/05/16. * V/Q scan low prob for PE * Arterial dopplers reveal Right SFA, popiteal artery and ALETA occluded. I contacted Dr. Wallace who is instructed me to call Dr. Love. I spoke with Dr. Love and he will evaluate, in the meantime, I called Cardiology -Syncope appears to be autonomic dysfunction: ECHO canceled b/c he just had Echo , continue telemetry monitoring, MRI and MRA brain negative for acute stroke. -Chest pains,atypical, suspect GERD related: Cardiology evaluated, treat with ppi -Chronic Diastolic heart failure, stable: Admit to telemetry: strict I/O, BNP, chest x ray, cardiology consulted in ED, diuresis, afterload reduction, supplemental oxygen, -ARF (acute renal failure) with tubular necrosis: monitor uop q shift, urine electrolytes, consulted nephrology -no Pneumonia on CXR: IV antibiotics stopped, Chest x ray, supplemental oxygen , nebulizer therapy, monitor uop q shift, blood cultures. -Nicotine dependence: smoking cessation counseling, supportive care. -DVT prophylaxis: scd to ble while in bed, heparin drip -Chronic Right ischemic leg with h/o PAD s/p leg stents placed November 09, 2017 at [facility]: evaluated by Vascular surgeon, Dr. Love MRI Lumbar spine pending PT/OT evaluation pending, possible home History Interval history: Patient was seen and examined. Follow-up on current diagnosis. Overnight uneventful. Patient denies any chest pain, shortness breath, nausea/vomiting or severe headaches. Imaging, nursing note, chart, labs and old chart reviewed. Discussed with patient. Now he has feeling in his right foot, on top but no feeling on sole of foot. He is now able to wiggle his right toes. Hospitalist Physical - Physical exam Narrative exam: GEN: WDWN, NAD, Awake, Alert, Orientated x 3 HEENT: NCAT, EOMI, PERRL, OP Clear NECK: supple, no adenopathy, no thyromegaly, no JVD CVS/HEART: RRR, normal S1S2, pulses present bilaterally CHEST/LUNGS: CTA B, Symmetrical chest expansion, good air entry bilaterally GI/Abdomen: soft, NTND, good bowel sounds, no guarding or rebound /Bladder: no suprapubic tenderness, no CVA or paraspinal tenderness EXT/Skin: no c/c/e, no obvious rash MSK: FROM x 4 Neuro: CN 2-12 grossly intact, and now able to move right toes, +dp absent Psych: calm - Constitutional Vitals: Temp Pulse Resp BP Pulse Ox 98.3 F 54 L 16 120/51 95 01/12/18 07:49 01/12/18 07:49 01/12/18 07:49 01/12/18 07:49 01/12/18 07:49 General appearance: Present: no acute distress Results - Labs CBC & Chem 7: 01/11/18 15:59 01/12/18 07:02 Labs: Laboratory Last Values WBC 7.8 K/mm3 (4.5-11.0) 01/11/18 07:01 RBC 3.03 M/mm3 (3.65-5.03) L 01/11/18 07:01 Hgb 9.5 gm/dl (11.8-15.2) L 01/11/18 15:59 Hct 27.7 % (35.5-45.6) L 01/11/18 15:59 MCV 93 fl (84-94) 01/11/18 07:01 MCH 31 pg (28-32) 01/11/18 07:01 MCHC 34 % (32-34) 01/11/18 07:01 RDW 16.5 % (13.2-15.2) H 01/11/18 07:01 Plt Count 371 K/mm3 (140-440) 01/11/18 15:59 Lymph % (Auto) 12.6 % (13.4-35.0) L 01/09/18 01:04 [place] % (Auto) 5.8 % (0.0-7.3) 01/09/18 01:04 Eos % (Auto) 0.9 % (0.0-4.3) 01/09/18 01:04 Baso % (Auto) 0.2 % (0.0-1.8) 01/09/18 01:04 Lymph # 1.6 K/mm3 (1.2-5.4) 01/09/18 01:04 [place] # 0.7 K/mm3 (0.0-0.8) 01/09/18 01:04 Eos # 0.1 K/mm3 (0.0-0.4) 01/09/18 01:04 Baso # 0.0 K/mm3 (0.0-0.1) 01/09/18 01:04 Seg Neutrophils % 80.5 % (40.0-70.0) H 01/09/18 01:04 Seg Neutrophils # 10.3 K/mm3 (1.8-7.7) H 01/09/18 01:04 PT 12.8 Sec. (12.2-14.9) 01/11/18 15:59 INR 0.92 (0.87-1.13) 01/11/18 15:59 APTT 37.7 Sec. (24.2-36.6) H 01/11/18 15:59 D-Dimer 1093.52 ng/mlDDU (0-234) H 01/09/18 11:29 Sodium 138 mmol/L (137-145) 01/12/18 07:02 Potassium 3.7 mmol/L (3.6-5.0) 01/12/18 07:02 Chloride 96.3 mmol/L (98-107) L 01/12/18 07:02 Carbon Dioxide 28 mmol/L (22-30) 01/12/18 07:02 Anion Gap 17 mmol/L 01/12/18 07:02 BUN 28 mg/dL (9-20) H 01/12/18 07:02 Creatinine 1.4 mg/dL (0.8-1.5) 01/12/18 07:02 Estimated GFR > 60 ml/min 01/12/18 07:02 BUN/Creatinine Ratio 20 % 01/12/18 07:02 Glucose 103 mg/dL (75-100) H 01/12/18 07:02 Calcium 9.2 mg/dL (8.4-10.2) 01/12/18 07:02 Troponin T < 0.010 ng/mL (0.00-0.029) 01/09/18 18:52 NT-Pro-B Natriuret Pep 80.50 pg/mL (0-900) 01/09/18 01:04 Triglycerides 75 mg/dL (2-149) 01/09/18 14:57 Cholesterol 146 mg/dL (50-199) 01/09/18 14:57 LDL Cholesterol Direct 100 mg/dL (50-130) 01/09/18 14:57 HDL Cholesterol 37 mg/dL (40-59) L 01/09/18 14:57 Cholesterol/HDL Ratio 3.94 % 01/09/18 14:57 Urine Color Yellow (Yellow) 01/10/18 23:00 Urine Turbidity Clear (Clear) 01/10/18 23:00 Urine pH 5.0 (5.0-7.0) 01/10/18 23:00 Ur Specific [place] 1.012 (1.003-1.030) 01/10/18 23:00 Urine Protein <15 mg/dl mg/dL (Negative) 01/10/18 23:00 Urine Glucose (UA) Neg mg/dL (Negative) 01/10/18 23:00 Urine Ketones Neg mg/dL (Negative) 01/10/18 23:00 Urine Blood Neg (Negative) 01/10/18 23:00 Urine Nitrite Neg (Negative) 01/10/18 23:00 Urine Bilirubin Neg (Negative) 01/10/18 23:00 Urine Urobilinogen < 2.0 mg/dL (<2.0) 01/10/18 23:00 Ur Leukocyte Esterase Neg (Negative) 01/10/18 23:00 Urine WBC (Auto) < 1.0 /HPF (0.0-6.0) 01/10/18 23:00 Urine RBC (Auto) 2.0 /HPF (0.0-6.0) 01/10/18 23:00
--- NOTE | 2018-01-12 13:36 | Vascular Lab Report ---
LOWER EXTREMITY ARTERIAL DUPLEX: REASON FOR EXAM: Peripheral arterial disease. COMMENTS ON THE RIGHT: Monophasic waveforms are seen proximally. Monophasic waveforms are seen distally. Evidence of artery stenosis is identified. Superficial femoral artery appears to be occluded. A small amount of monophasic flow seen in the posterior tibial artery. Little if any flow is seen distal to the tibial vessels. Scattered plaque is seen throughout. Findings are consistent with abnormal perfusion. Findings are not consistent with the ability to heal distal wounds. COMMENTS ON THE LEFT: Triphasic waveforms are seen proximally. Monophasic waveforms are seen distally. Evidence of superficial femoral artery occlusion or severe stenosis is identified. Scattered plaque is seen throughout. Findings are consistent with abnormal perfusion. Findings are not consistent with the ability to heal distal wounds. IMPRESSION: RIGHT: Severe arterial occlusive disease. Findings are consistent with rest pain or tissue loss. Recommend further evaluation. LEFT:Severe arterial occlusive disease distal to the superficial femoral artery. Recommend further evaluation.
--- NOTE | 2018-01-12 20:29 | Magnetic Resonance Report ---
FINAL REPORT EXAM: MR LUMBAR SPINE WO CON HISTORY: back pains, leg pains TECHNIQUE: Multiplanar MRI of lumbar spine. No contrast administered. PRIORS: None. FINDINGS: Mild disc desiccation in the L4-S1 levels. No loss of height or gross malalignment of lumbar vertebral bodies. Conus medullaris is in normal location and has normal contour and signal intensity. Possible left renal cyst measuring approximately 1 cm. L1-L2: No apparent disc bulge or protrusion. No significant central spinal stenosis or neural foraminal narrowing. L2-L3: No apparent disc bulge or protrusion. No significant central spinal stenosis or neural foraminal narrowing. Mild ligamenta flava hypertrophy and facet degeneration. L3-L4: No apparent disc bulge or protrusion. No significant central spinal stenosis or neural foraminal narrowing. Mild ligamenta flava hypertrophy and facet degeneration. L4-L5: Very mild, generalized disc bulge and posterior protrusion, with small annular fissure or tear along posterior margin. Mild central spinal canal and bilateral neural foraminal narrowing, which may be due in part to congenitally shortened pedicular distance and prominent posterior epidural fat. Mild ligamenta flava hypertrophy and facet degeneration. L5-S1: No apparent disc bulge or protrusion. No significant central spinal stenosis or neural foraminal narrowing. Mild facet degeneration. IMPRESSION: 1. Degenerative disc disease and spondylosis. Please see above for details at individual levels. 2. No significant central spinal canal compromise.
[2018-01-12] MEDS: HABITROL TD SCH ×3 (22:28→22:54)
[2018-01-13 06:50] LABS: Hematocrit 28.3 % (35.5-45.6); Hemoglobin 9.6 gm/dl (11.8-15.2)
[2018-01-13 07:19] LABS: BUN/Creatinine Ratio 20; Blood Urea Nitrogen 26 mg/dL (9-20); Calcium 9.6 mg/dL (8.4-10.2); Hemolysis Index 2
[2018-01-13] MEDS: NEURONTIN PO SCH (10:07)
[2018-01-13] MEDS: RisperDAL PO SCH (10:07)
[2018-01-13] MEDS: BABY ASPIRIN PO SCH (10:07)
[2018-01-13] MEDS: PROCARDIA XL PO SCH (10:07)
[2018-01-13] MEDS: PLAVIX PO SCH (10:07)
[2018-01-13] MEDS: HCTZ PO SCH (10:07)
[2018-01-13] MEDS: PEPCID PO SCH (10:07)
[2018-01-13] MEDS: K-DUR PO SCH (10:07)
[2018-01-13] MEDS: ZOLOFT PO SCH (10:07)
[2018-01-13] MEDS: ALDACTONE PO SCH (10:08)
[2018-01-13] MEDS: IMDUR PO SCH (10:08)
[2018-01-13] MEDS: TOPROL XL PO SCH (10:09)
[2018-01-13] MEDS: LASIX IV SCH (10:09)
[2018-01-13] MEDS: SODIUM CHLORIDE FLUSH SYRINGE 10 ML IV SCH (10:10)
--- NOTE | 2018-01-13 12:33 | Discharge Summary ---
Providers - Providers Date of Admission: 01/09/18 14:28 Date of discharge: 01/13/18 Attending physician: TANYA DAI 01/09/18 Consult to Cardiac Rehabilitation [CONS] Routine Reason For Exam: Phase I 01/09/18 14:28 Consult to Cardiology [CONS] Routine Consulting Provider: SAIGE GARCIA Reason For Exam: chf 01/10/18 13:10 Consult to Physician [CONS] Routine Comment: Consulting Provider: SONALI SUAZO Physician Instructions: Reason For Exam: ARF 01/11/18 08:31 Consult to Physician [CONS] Routine Comment: Consulting Provider: LINDA STEPHENS Physician Instructions: I spoke with Dr. Love, add to his list Reason For Exam: Ischemic limb 01/11/18 14:08 Occupational Therapy Evaluate and Treat [CONS] Routine Comment: Reason For Exam: ADLs evaluation Physical Therapy Evaluation and Treat [CONS] Routine Comment: Reason For Exam: gait evaluation/ambulatory dysfunction Primary care physician: [employer] Hospitalization Condition: Fair Hospital course: Mr. Goldberg is a 57 yo man with a history of HTN, CAD S/P Stent Placement, OA, prior CVA, Diastolic CHF, CA, Nicotine Dependence and PAD s/p unspecific procedure who presented with syncope and chest pains. Just discharged on . Discharge diagnosis and management: -Syncope appears to be autonomic dysfunction: ECHO canceled b/c he just had Echo, continued telemetry monitoring revealed no arrythmia, MRI and MRA brain negative for acute stroke. -Chest pains,atypical, suspect GERD related: Cardiology evaluated, treat with ppi -Chronic Diastolic heart failure, stable: Admited to telemetry: managed with strict I/O, diuresis, afterload reduction, supplemental oxygen, obtained BNP, chest x ray, cardiology consulted in ED. -ARF (acute renal failure) with tubular necrosis: monitored uop q shift, urine electrolytes, consulted nephrology. Resolved on discharge -Pneumonia ruled out, no infiltrates on CXR: IV antibiotics stopped, Chest x ray, supplemental oxygen, nebulizer therapy, monitor uop q shift, blood cultures. -Nicotine dependence: smoking cessation counselled, supportive care. -DVT prophylaxis: scd to ble while in bed, heparin drip -Chronic Right ischemic leg with h/o PAD s/p leg stents placed November 09, 2017 at [place]: Evaluated by Vascular surgeon, Dr. Love. No evidence of acute arterial occlusion , and he has arterial perfusion to the right foot via the posterior tibial artery. He has a symmetric vascular exam clinically, all of which is consistent with chronic peripheral arterial disease. patient will reschedule vascular follow up, but no indication for urgent vascular intervention per Dr Love. Radiological data: * pCXR unremarkable * CT head wo contrast Normal. IMPRESSION: No acute intracranial process. Chronic lacunar infarct in the right thalamus. No change since 03/05/16. * V/Q scan low prob for PE * Arterial dopplers reveal Right SFA, popiteal artery and ALETA occluded. * MRI lumber spine - degenerative disk disease * PT eval- roller walker, no additional HH need Hospitalist Physical GEN: WDWN, NAD, Awake, Alert, Orientated x 3 HEENT: NCAT, EOMI, PERRL, OP Clear NECK: supple, no adenopathy, no thyromegaly, no JVD CVS/HEART: RRR, normal S1S2, pulses present bilaterally CHEST/LUNGS: CTA B, Symmetrical chest expansion, good air entry bilaterally GI/Abdomen: soft, NTND, good bowel sounds, no guarding or rebound /Bladder: no suprapubic tenderness, no CVA or paraspinal tenderness EXT/Skin: no c/c/e, no obvious rash MSK: FROM x 4 Neuro: CN 2-12 grossly intact, and now able to move right toes, +dp absent Psych: calm Disposition: DC-01 TO HOME OR SELFCARE Time spent for discharge: 34 minutes Core Measure Documentation - Palliative Care Palliative Care/ Comfort Measures: Not Applicable - Core Measures Any of the following diagnoses?: none Exam - Constitutional Vitals: Temp Pulse Resp BP Pulse Ox 97.6 F 55 L 18 140/57 99 01/13/18 08:00 01/13/18 10:09 01/13/18 07:51 01/13/18 10:09 01/13/18 07:51 Plan Activity: advance as tolerated (with roller walker) Weight Bearing Status: Non-Weight Bearing Diet: low cholesterol, low salt Durable Medical Equipment Needed Upon Discharge: Walker-Rolling Additional Instructions: f/u with Dr. Lvoe in two weeks Follow up with: PRIMARY CARE, [Primary Care Provider] - 3-5 Days
[2018-01-13 13:10] VITALS: BP 110/56
== END 2018-01-13 15:00 | disposition home or self-care (01) | DRG 73 ==
LOC: ED 23:08 → 4A 01-09 14:28
PROVIDERS: ADMIT Internal Medicine; ATTEND Internal Medicine
DX: G90.9 Disorder of the autonomic nervous system, unspecified (principal); N17.0 Acute kidney failure with tubular necrosis; I50.32 Chronic diastolic (congestive) heart failure; F17.213 Nicotine dependence, cigarettes, with withdrawal; K21.9 Gastro-esophageal reflux disease without esophagitis; I11.0 Hypertensive heart disease with heart failure; G62.9 Polyneuropathy, unspecified; E78.5 Hyperlipidemia, unspecified; I25.10 Atherosclerotic heart disease of native coronary artery without angina pectoris; M19.90 Unspecified osteoarthritis, unspecified site; I73.9 Peripheral vascular disease, unspecified; Z82.49 Family history of ischemic heart disease and other diseases of the circulatory system; Z86.73 Personal history of transient ischemic attack (TIA), and cerebral infarction without residual deficits; I25.2 Old myocardial infarction; Z71.6 Tobacco abuse counseling
CPT/HCPCS: 36415; 70450; 70544; 70551; 71045; 72148; 78582; 80048; 80061; 81001; 83880; 84484; 85014; 85018; 85025; 85027; 85049; 85379; 85610; 85730; 87040; 93005; 93010; 93880; 93925; 96365; 99406; A9270-GY; A9540; A9558; J0456; J0696; J1644; J1940; J7050

== ENCOUNTER 2018-08-06 13:38 | Inpatient (IN) | payer MEDICAID, SELFPAY ==
[2018-08-06] MEDS ORDERED: ZOFRAN IV ONE (14:44)
[2018-08-06] MEDS ORDERED: MORPHINE IV ONE (14:44)
[2018-08-06] MEDS ORDERED: NITRO-BID 2% TP ONE (14:44)
--- NOTE | 2018-08-06 14:50 | Emergency Department Report ---
ED Chest Pain HPI - General Chief Complaint: High BP Stated Complaint: HYPERTENSION Time Seen by Provider: 08/06/18 14:17 Source: patient, EMS Mode of arrival: Stretcher Limitations: No Limitations - History of Present Illness Initial Comments: 58-year-old male with a past medical history of CAD with residual right-sided weakness, CAD with stents, PAD with stents, cardiomegaly, herniated disc, neuropathy, and hypertension presents now for complaints of waking up with a headache this morning and chest pain as started prior to arrival. Headache is left-sided, frontal, constant, and radiated 10/10 in intensity. Positive associated nausea without blurred vision, fever, focal weakness, focal numbness, or vomiting. Patient also is complaining of mid sternal chest pressure that started 1 hour prior with associated shortness of breath that has since improved. Patient is not compliant with all his medications 1 month including aspirin and Plavix. He denies a history of chronic headaches. Severity scale (0 -10): 10 - Related Data Home Medications Medication Instructions Recorded Confirmed Last Taken Furosemide [Lasix TAB] 40 mg PO QDAY 01/09/18 01/09/18 Unknown Gabapentin [Neurontin] 300 mg PO QAM 01/09/18 01/09/18 01/08/18 Gabapentin [Neurontin] 600 mg PO QPM 01/09/18 01/09/18 Unknown Nicotine [Nicotine Patch] 1 each TD DAILY 01/09/18 01/09/18 01/08/18 Potassium Chloride [K-Dur] 20 meq PO QDAY 01/09/18 01/09/18 Unknown Spironolactone [Aldactone] 25 mg PO QDAY 01/09/18 01/09/18 Unknown hydroCHLOROthiazide [HCTZ] 25 mg PO QDAY 01/09/18 01/09/18 Unknown Previous Rx's Medication Instructions Recorded Last Taken Type Aspirin [Aspirin BABY CHEW TAB] 81 mg PO QDAY #30 tab.chew 08/28/17 01/08/18 Rx AtorvaSTATin [Lipitor] 40 mg PO QHS #30 tablet 08/28/17 01/08/18 Rx Clopidogrel [Plavix] 75 mg PO QDAY #30 tablet 08/28/17 01/08/18 Rx ISOSORBIDE MONOnitrate [Imdur ER] 30 mg PO DAILY #30 tablet 08/28/17 01/08/18 Rx Metoprolol Succinate [Toprol Xl] 50 mg PO QDAY #30 tab.er.24h 08/28/17 01/08/18 Rx Sertraline [Zoloft] 100 mg PO DAILY #30 tablet 08/28/17 01/08/18 Rx amLODIPine [Norvasc] 10 mg PO DAILY #30 tablet 08/28/17 01/08/18 Rx risperiDONE [RisperDAL] 1 mg PO DAILY #30 tablet 08/28/17 01/08/18 Rx Allergies Allergy/AdvReac Type Severity Reaction Status Date / Time No Known Allergies Allergy Verified 08/06/18 14:39 Heart Score - HEART Score History: Slightly suspicious EKG: Non-specific Age: 45-65 Risk factors: > 3 risk factors or hx of atherosclerotic disease Troponin: < normal limit HEART Score: 4 ED Review of Systems ROS: Stated complaint: HYPERTENSION Other details as noted in HPI Comment: All other systems reviewed and negative ED Past Medical Hx - Past Medical History Hx Hypertension: Yes Hx CVA: Yes (last 09/2017 right weakness) Hx Heart Attack/AMI: Yes (last 06/2017) Hx Congestive Heart Failure: Yes Hx Diabetes: No Hx Arthritis: Yes Hx Asthma: No Hx COPD: No Additional medical history: Cardiomegaly, Herniated Disk, Neuropathy - Surgical History Hx Coronary Stent: Yes Additional Surgical History: Heart stents; Stents and "bubble" placed in legs. - Social History Smoking Status: Never Smoker Substance Use Type: None - Medications Home Medications: Home Medications Medication Instructions Recorded Confirmed Last Taken Type Aspirin [Aspirin BABY CHEW TAB] 81 mg PO QDAY #30 tab.chew 08/28/17 01/09/18 01/08/18 Rx AtorvaSTATin [Lipitor] 40 mg PO QHS #30 tablet 08/28/17 01/09/18 01/08/18 Rx Clopidogrel [Plavix] 75 mg PO QDAY #30 tablet 08/28/17 01/09/18 01/08/18 Rx ISOSORBIDE MONOnitrate [Imdur ER] 30 mg PO DAILY #30 tablet 08/28/17 01/09/18 01/08/18 Rx Metoprolol Succinate [Toprol Xl] 50 mg PO QDAY #30 tab.er.24h 08/28/17 01/09/18 01/08/18 Rx Sertraline [Zoloft] 100 mg PO DAILY #30 tablet 08/28/17 01/09/18 01/08/18 Rx amLODIPine [Norvasc] 10 mg PO DAILY #30 tablet 08/28/17 01/09/18 01/08/18 Rx risperiDONE [RisperDAL] 1 mg PO DAILY #30 tablet 08/28/17 01/09/18 01/08/18 Rx Furosemide [Lasix TAB] 40 mg PO QDAY 01/09/18 01/09/18 Unknown History Gabapentin [Neurontin] 300 mg PO QAM 01/09/18 01/09/18 01/08/18 History Gabapentin [Neurontin] 600 mg PO QPM 01/09/18 01/09/18 Unknown History Nicotine [Nicotine Patch] 1 each TD DAILY 01/09/18 01/09/18 01/08/18 History Potassium Chloride [K-Dur] 20 meq PO QDAY 01/09/18 01/09/18 Unknown History Spironolactone [Aldactone] 25 mg PO QDAY 01/09/18 01/09/18 Unknown History hydroCHLOROthiazide [HCTZ] 25 mg PO QDAY 01/09/18 01/09/18 Unknown History ED Physical Exam - General Limitations: No Limitations - Other Other exam information: General: Moderate distress noted due to headache Head exam: Atraumatic, normocephalic Eyes exam: Normal appearance, pupils equal reactive to light, extraocular movements intact ENT: Moist mucous membrane, normal oropharynx Neck exam: Normal inspection, full range of motion, no meningismus nontender Respiratory exam: Clear to auscultation bilateral, no wheezes, rales, crackles Cardiovascular: Normal rate and rhythm, normal heart sounds Abdomen: Soft, nondistended, and nontender, with normal bowel sounds, no rebound, or guarding Extremity: Full range of motion normal inspection no deformity Back: Normal Inspection, full range of motion, no tenderness Neurologic: Alert, oriented x3, cranial nerves intact, equal hand package checker without arm drift. Left leg 5/5 strength, right leg drift noted. Psychiatric: normal affect, normal mood Skin: Warm, dry, intact ED Course Vital Signs 08/06/18 08/06/18 08/06/18 14:26 14:30 15:58 Temperature Pulse Rate 58 L Respiratory 16 20 16 Rate Blood Pressure Blood Pressure 215/98 [Left] O2 Sat by Pulse 98 Oximetry 08/06/18 08/06/18 16:02 16:37 Temperature 98.7 F Pulse Rate 71 Respiratory Rate Blood Pressure 211/98 Blood Pressure [Left] O2 Sat by Pulse Oximetry MICHAEL score - Michael Score Age > 65: (0) No Aspirin use within the Past 7 Days: (0) No 3 or more CAD Risk Factors: (1) Yes 2 or more Angina events in past 24 hrs: (0) No Known CAD with more than 50% Stenosis: (0) No Elevated Cardiac Markers: (0) No ST Deviation Greater than 0.5mm: (0) No MICHAEL Score: 1 ED Medical Decision Making - Lab Data Result diagrams: 08/06/18 15:47 08/06/18 16:07 Lab Results 08/06/18 08/06/18 08/06/18 Range/Units 15:47 15:47 15:47 WBC 12.2 H (4.5-11.0) K/mm3 RBC 4.85 (3.65-5.03) M/mm3 Hgb 13.9 (11.8-15.2) gm/dl Hct 41.9 (35.5-45.6) % MCV 86 (84-94) fl MCH 29 (28-32) pg MCHC 33 (32-34) % RDW 17.7 H (13.2-15.2) % Plt Count 380 (140-440) K/mm3 Lymph % (Auto) 8.1 L (13.4-35.0) % [place] % (Auto) 3.3 (0.0-7.3) % Eos % (Auto) 0.1 (0.0-4.3) % Baso % (Auto) 0.4 (0.0-1.8) % Lymph # 1.0 L (1.2-5.4) K/mm3 [place] # 0.4 (0.0-0.8) K/mm3 Eos # 0.0 (0.0-0.4) K/mm3 Baso # 0.0 (0.0-0.1) K/mm3 Seg Neutrophils % 88.1 H (40.0-70.0) % Seg Neutrophils # 10.8 H (1.8-7.7) K/mm3 PT 12.6 (12.2-14.9) Sec. INR 0.89 (0.87-1.13) APTT 30.7 (24.2-36.6) Sec. Sodium (137-145) mmol/L Potassium (3.6-5.0) mmol/L Chloride (98-107) mmol/L Carbon Dioxide (22-30) mmol/L Anion Gap mmol/L BUN (9-20) mg/dL Creatinine (0.8-1.5) mg/dL Estimated GFR ml/min BUN/Creatinine Ratio % Glucose (75-100) mg/dL Calcium (8.4-10.2) mg/dL Total Bilirubin (0.1-1.2) mg/dL AST (5-40) units/L ALT (7-56) units/L Alkaline Phosphatase (35-129) units/L Troponin T < 0.010 (0.00-0.029) ng/mL Total Protein (6.3-8.2) g/dL Albumin (3.9-5) g/dL Albumin/Globulin Ratio % /18/19 Range/Units 16:07 WBC (4.5-11.0) K/mm3 RBC (3.65-5.03) M/mm3 Hgb (11.8-15.2) gm/dl Hct (35.5-45.6) % MCV (84-94) fl MCH (28-32) pg MCHC (32-34) % RDW (13.2-15.2) % Plt Count (140-440) K/mm3 Lymph % (Auto) (13.4-35.0) % [place] % (Auto) (0.0-7.3) % Eos % (Auto) (0.0-4.3) % Baso % (Auto) (0.0-1.8) % Lymph # (1.2-5.4) K/mm3 [place] # (0.0-0.8) K/mm3 Eos # (0.0-0.4) K/mm3 Baso # (0.0-0.1) K/mm3 Seg Neutrophils % (40.0-70.0) % Seg Neutrophils # (1.8-7.7) K/mm3 PT (12.2-14.9) Sec. INR (0.87-1.13) APTT (24.2-36.6) Sec. Sodium 138 (137-145) mmol/L Potassium 4.5 (3.6-5.0) mmol/L Chloride 104.5 (98-107) mmol/L Carbon Dioxide 18 L (22-30) mmol/L Anion Gap 20 mmol/L BUN 24 H (9-20) mg/dL Creatinine 1.1 (0.8-1.5) mg/dL Estimated GFR > 60 ml/min BUN/Creatinine Ratio 22 % Glucose 112 H (75-100) mg/dL Calcium 9.0 (8.4-10.2) mg/dL Total Bilirubin 0.30 (0.1-1.2) mg/dL AST 23 (5-40) units/L ALT 12 (7-56) units/L Alkaline Phosphatase 55 (35-129) units/L Troponin T < 0.010 (0.00-0.029) ng/mL Total Protein 8.1 (6.3-8.2) g/dL Albumin 3.9 (3.9-5) g/dL Albumin/Globulin Ratio 0.9 % - EKG Data -: EKG Interpreted by Id EKG shows normal: sinus rhythm, axis (qrs -38), QRS complexes (qrsd 108), ST-T waves (no stemi) Rate: bradycardia (55) - Radiology Data Radiology results: report reviewed CT HEAD WITHOUT CONTRAST: HISTORY: Headache, hypertension. TECHNIQUE: Sequential 2.5mm CT images. COMPARISON: 01/09/18. FINDINGS: Cerebral Parenchyma: Within normal limits. Cerebellum: Within normal limits. Brainstem: Within normal limits. Ventricles: Normal. Sella: Normal. Extra-axial spaces: Normal. Basal Cisterns: Normal. Intracranial Hemorrhage: None. Midline Shift: None. Calvarium: Normal. Sinuses: Normal. Mastoid Air Cells: Normal. Visualized Orbits: Normal. IMPRESSION: Cranial CT scan within normal limits. AP CHEST: HISTORY: chest pain AP view of the chest demonstrates a normal mediastinal and cardiac contour with clear lungs and normal bony and soft tissue structures. IMPRESSION: Unremarkable AP chest. - Medical Decision Making Pain improved after morphine and Zofran. CT head unremarkable without any new neurologic deficits Initial EKG unchanged compared to previously initial negative troponin Blood pressure remained elevated despite nitroglycerin paste and pain control with morphine. Colonies 0.1 mg provided Aspirin provided for chest pain Hospitalist informed for admission - Differential Diagnosis unstable angina, MT, PE, ICH, hypertensive headache Critical Care Time: No Critical care attestation.: If time is entered above; I have spent that time in minutes in the direct care of this critically ill patient, excluding procedure time. ED Disposition Clinical Impression: Chest pain, Uncontrolled hypertension, Headache, Non compliance w medication regimen, T2DM (type 2 diabetes mellitus) Disposition: OP ADMIT IP TO THIS HOSP Is pt being admited?: Yes Does the pt Need Aspirin: Yes Condition: Stable Time of Disposition: 18:09 (Dr Avila/hosp)
[2018-08-06] MEDS ORDERED: CARDENE 50 MG in NACL 0.9% 250ML 230 ML IV SCH (15:00)
--- NOTE | 2018-08-06 15:13 | Cat Scan Report ---
CT HEAD WITHOUT CONTRAST: HISTORY: Headache, hypertension. TECHNIQUE: Sequential 2.5mm CT images. COMPARISON: 01/09/18. FINDINGS: Cerebral Parenchyma: Within normal limits. Cerebellum: Within normal limits. Brainstem: Within normal limits. Ventricles: Normal. Sella: Normal. Extra-axial spaces: Normal. Basal Cisterns: Normal. Intracranial Hemorrhage: None. Midline Shift: None. Calvarium: Normal. Sinuses: Normal. Mastoid Air Cells: Normal. Visualized Orbits: Normal. IMPRESSION: Cranial CT scan within normal limits.
[2018-08-06 16:01] LABS: Basophils % (Auto) 0.4 % (0.0-1.8); Eosinophils % (Auto) 0.1 % (0.0-4.3); Hematocrit 41.9 % (35.5-45.6); Hemoglobin 13.9 gm/dl (11.8-15.2); Lymphocytes % (Auto) 8.1 % (13.4-35.0); Mean Corpuscular HGB Conc 33 % (32-34); Mean Corpuscular Volume 86 fl (84-94); Monocytes # (Auto) 0.4 K/mm3 (0.0-0.8); Monocytes % (Auto) 3.3 % (0.0-7.3); Platelet Count 380 K/mm3 (140-440); Red Blood Count 4.85 M/mm3 (3.65-5.03); Red Cell Distribution Width 17.7 % (13.2-15.2)
[2018-08-06 16:11] LABS: INR 0.89 (0.87-1.13)
[2018-08-06 16:12] LABS: Partial Thromboplastin Time 30.7 Sec. (24.2-36.6)
[2018-08-06] MEDS ORDERED: NORMODYNE IV ONE (17:17)
[2018-08-06] MEDS ORDERED: CATAPRES PO ONE (17:17)
[2018-08-06 18:01] LABS: BUN/Creatinine Ratio 22; Blood Urea Nitrogen 24 mg/dL (9-20)
[2018-08-06 18:02] LABS: Alanine Aminotransferase 12 units/L (7-56); Albumin 3.9 g/dL (3.9-5)
[2018-08-06] MEDS ORDERED: ASPIRIN PO ONE (18:09)
[2018-08-06] MEDS ORDERED: TYLENOL PO PRN (22:13)
[2018-08-06] MEDS ORDERED: MORPHINE IV PRN (22:13)
[2018-08-06] MEDS ORDERED: ZOFRAN IV PRN (22:13)
[2018-08-06] MEDS ORDERED: SODIUM CHLORIDE FLUSH SYRINGE 10 ML IV PRN (22:13)
--- NOTE | 2018-08-06 22:16 | History and Physical Report ---
History of Present Illness Date of examination: 08/06/18 Date of admission: 08/06/18 18:10 History of present illness: 58-year-old man with a history of hypertension, coronary artery disease, pe ripheral vascular disease, hyperlipidemia, ischemic cardiomyopathy, depression comes emergency room with complaints of chest pain . Pain is in the epigastric area which he describes a pulsing pain, constant for 3 hours, no radiation, relieved with nitroglycerin. He admits to nausea, diaphoresis, palpitation, shortness of breath. Also complaining of a headache which is improved Review of systems Constitutional: no weight loss, chills Ears, eyes, nose, mouth and throat: no nasal congestion, no nasal discharge, no sinus pressure, no vision change, no red eye. Neck: No neck pain or rigidity. Cardiovascular: + palpitations Respiratory: No cough,+ shortness of breath Gastrointestinal: no abdominal pain, hematochezia Genitourinary : no dysuria, frequency , no hematuria Musculoskeletal: no joint swelling or muscle ache Integumentary: no rash, no pruritis Neurological: no parathesias, no numbness, no focal weakness Endocrine: no cold or heat intolerance, no polyuria or polydipsia Hematologic/Lymphatic: no easy bruising, no easy bleeding, no gland swelling Allergic/Immunologic: no urticaria, no angioedema. PAST MEDICAL HISTORY: hypertension, coronary artery disease, peripheral vascular disease, hyperlipidemia, ischemic cardiomyopathy, depression PAST SURGICAL HISTORY: None SOCIAL HISTORY: no alcohol, drugs, quit smoking FAMILY HISTORY: Hypertension Medications and Allergies Allergies Allergy/AdvReac Type Severity Reaction Status Date / Time No Known Allergies Allergy Verified 08/06/18 14:39 Home Medications Medication Instructions Recorded Confirmed Last Taken Type Aspirin [Aspirin BABY CHEW TAB] 81 mg PO QDAY #30 tab.chew 08/28/17 01/09/18 01/08/18 Rx AtorvaSTATin [Lipitor] 40 mg PO QHS #30 tablet 08/28/17 01/09/18 01/08/18 Rx Clopidogrel [Plavix] 75 mg PO QDAY #30 tablet 08/28/17 01/09/18 01/08/18 Rx ISOSORBIDE MONOnitrate [Imdur ER] 30 mg PO DAILY #30 tablet 08/28/17 01/09/18 01/08/18 Rx Metoprolol Succinate [Toprol Xl] 50 mg PO QDAY #30 tab.er.24h 08/28/17 01/09/18 01/08/18 Rx Sertraline [Zoloft] 100 mg PO DAILY #30 tablet 08/28/17 01/09/18 01/08/18 Rx amLODIPine [Norvasc] 10 mg PO DAILY #30 tablet 08/28/17 01/09/18 01/08/18 Rx risperiDONE [RisperDAL] 1 mg PO DAILY #30 tablet 08/28/17 01/09/18 01/08/18 Rx Furosemide [Lasix TAB] 40 mg PO QDAY 01/09/18 01/09/18 Unknown History Gabapentin [Neurontin] 300 mg PO QAM 01/09/18 01/09/18 01/08/18 History Gabapentin [Neurontin] 600 mg PO QPM 01/09/18 01/09/18 Unknown History Nicotine [Nicotine Patch] 1 each TD DAILY 01/09/18 01/09/18 01/08/18 History Potassium Chloride [K-Dur] 20 meq PO QDAY 01/09/18 01/09/18 Unknown History Spironolactone [Aldactone] 25 mg PO QDAY 01/09/18 01/09/18 Unknown History hydroCHLOROthiazide [HCTZ] 25 mg PO QDAY 01/09/18 01/09/18 Unknown History Exam - Physical Exam Narrative exam: Gen. appearance: Patient lying in bed, no apparent distress HEENT: Normocephalic, atraumatic, pupils equally round and reactive to light, extraocular movement intact, and no sclericterus,. No JVD or thyromegaly or nodule,neck supple, no carotid bruit ,mucous membranes moist, no exudate or erythema Heart: S1, S2, regular rate and rhythm Lungs: Clear to auscultation bilaterally, breathing comfortable Abdomen: Positive bowel sounds, nontender, nondistended, no organomegaly Extremity: No edema, cyanosis, clubbing Skin: No rash, nodules, warm, dry Neuro: Oriented 3, cranial nerves II-12 intact, speech is fluent, motor and sensory intact - Constitutional Vitals: Temp Pulse Resp BP Pulse Ox 98.7 F 58 L 15 149/67 97 08/06/18 16:37 08/06/18 20:41 08/06/18 20:15 08/06/18 20:15 08/06/18 20:15 Results - Labs CBC & Chem 7: 08/06/18 15:47 08/06/18 16:07 Labs: Abnormal lab results 08/06/18 08/06/18 Range/Units 15:47 16:07 WBC 12.2 H (4.5-11.0) K/mm3 RDW 17.7 H (13.2-15.2) % Lymph % (Auto) 8.1 L (13.4-35.0) % Lymph # 1.0 L (1.2-5.4) K/mm3 Seg Neutrophils % 88.1 H (40.0-70.0) % Seg Neutrophils # 10.8 H (1.8-7.7) K/mm3 Carbon Dioxide 18 L (22-30) mmol/L BUN 24 H (9-20) mg/dL Glucose 112 H (75-100) mg/dL - Imaging and Cardiology Chest x-ray: report reviewed CT Scan - head: report reviewed Assessment and Plan Assessment Unstable angina Coronary artery disease Hypertension Peripheral vascular disease Hyperlipidemia Depression Plan Admit to medicine Check cardiac enzymes, consult cardiology, IV morphine Continue appropiate outpatient medications DVT prophylaxis
[2018-08-07 06:08] LABS: Basophils % (Auto) 0.4 % (0.0-1.8); Eosinophils # (Auto) 0.1 K/mm3 (0.0-0.4); Eosinophils % (Auto) 0.8 % (0.0-4.3); Hematocrit 37.9 % (35.5-45.6); Hemoglobin 12.5 gm/dl (11.8-15.2); Lymphocytes # (Auto) 1.8 K/mm3 (1.2-5.4); Lymphocytes % (Auto) 28.8 % (13.4-35.0); Mean Corpuscular HGB Conc 33 % (32-34); Mean Corpuscular Volume 87 fl (84-94); Monocytes # (Auto) 0.7 K/mm3 (0.0-0.8); Monocytes % (Auto) 10.8 % (0.0-7.3); Platelet Count 321 K/mm3 (140-440); Red Blood Count 4.34 M/mm3 (3.65-5.03); Red Cell Distribution Width 17.8 % (13.2-15.2)
[2018-08-07 06:31] LABS: BUN/Creatinine Ratio 10; Blood Urea Nitrogen 13 mg/dL (9-20); Calcium 8.8 mg/dL (8.4-10.2); Hemolysis Index 3
[2018-08-07] MEDS: TOPROL XL PO SCH (09:51)
[2018-08-07] MEDS: ZOLOFT PO SCH (09:51)
[2018-08-07] MEDS: HCTZ PO SCH (09:51)
[2018-08-07] MEDS: ALDACTONE PO SCH (09:51)
[2018-08-07] MEDS: RisperDAL PO SCH (09:51)
[2018-08-07] MEDS: SODIUM CHLORIDE FLUSH SYRINGE 10 ML IV SCH ×2 (09:52→21:27)
[2018-08-07] MEDS: IMDUR PO SCH (09:52)
--- NOTE | 2018-08-07 10:44 | Consultation ---
Addendum entered and electronically signed by SAIGE GARCIA MD 08/07/18 13:14: 58-year-old man with coronary artery disease and chronic hypertension, presents with uncontrolled hypertension due to poor compliance with his prescribed medications. In addition to not taking his blood pressure medicines, he also admits to not taking his dual oral antiplatelet therapy. We have resumed optimal blood pressure medicines, and his coronary artery disease medications including his aspirin and Plavix indicated for coronary stent placement about a year ago. The patient has also been cautioned about the elevated risk of stent thrombosis, and acute myocardial infarction in the setting of noncompliance with his oral antiplatelet therapy. After his blood pressures controlled, he can be discharged on his medications, for follow-up with his primary component design engineer in [place]. Original Note: History of Present Illness Consult date: 08/07/18 Consult reason: chest pain History of present illness: Mr Goldberg is a 58 year old man with multiple medical problems including 2 vessel coronary artery disease status post PCI of the circumflex a year ago at [facility]. He was noted to have patent LAD stent and non-obstructive disease in other coronary segments at that time. His latest cardiac workup was done at this hospital 6 months ago. He had a normal myocardial perfusion stress thallium test with a normal left ventricular systolic function, ejection fraction 55% by echocardiogram. Patient is admitted with uncontrolled hypertension secondary to noncompliance with his medications. He denies chest pain and unusual shortness of breath. ECG is sinus rhythm with non-specific Twave abnormalities. Medications and Allergies Allergies Allergy/AdvReac Type Severity Reaction Status Date / Time No Known Allergies Allergy Verified 08/06/18 14:39 Home Medications Medication Instructions Recorded Confirmed Last Taken Type Aspirin [Aspirin BABY CHEW TAB] 81 mg PO QDAY #30 tab.chew 08/28/17 01/09/18 01/08/18 Rx AtorvaSTATin [Lipitor] 40 mg PO QHS #30 tablet 08/28/17 01/09/18 01/08/18 Rx Clopidogrel [Plavix] 75 mg PO QDAY #30 tablet 08/28/17 01/09/18 01/08/18 Rx ISOSORBIDE MONOnitrate [Imdur ER] 30 mg PO DAILY #30 tablet 08/28/17 01/09/18 01/08/18 Rx Metoprolol Succinate [Toprol Xl] 50 mg PO QDAY #30 tab.er.24h 08/28/17 01/09/18 01/08/18 Rx Sertraline [Zoloft] 100 mg PO DAILY #30 tablet 08/28/17 01/09/18 01/08/18 Rx amLODIPine [Norvasc] 10 mg PO DAILY #30 tablet 08/28/17 01/09/18 01/08/18 Rx risperiDONE [RisperDAL] 1 mg PO DAILY #30 tablet 08/28/17 01/09/18 01/08/18 Rx Furosemide [Lasix TAB] 40 mg PO QDAY 01/09/18 01/09/18 Unknown History Gabapentin [Neurontin] 300 mg PO QAM 01/09/18 01/09/18 01/08/18 History Gabapentin [Neurontin] 600 mg PO QPM 01/09/18 01/09/18 Unknown History Nicotine [Nicotine Patch] 1 each TD DAILY 01/09/18 01/09/18 01/08/18 History Potassium Chloride [K-Dur] 20 meq PO QDAY 01/09/18 01/09/18 Unknown History Spironolactone [Aldactone] 25 mg PO QDAY 01/09/18 01/09/18 Unknown History hydroCHLOROthiazide [HCTZ] 25 mg PO QDAY 01/09/18 01/09/18 Unknown History Active Meds: Active Medications Acetaminophen (Tylenol) 650 mg PO Q4H PRN PRN Reason: Pain MILD(1-3)/Fever >100.5/SAHU Hydrochlorothiazide (Hctz) 25 mg PO QDAY [facility] Last Admin: 08/07/18 09:51 Dose: 25 mg Documented by: Isosorbide Mononitrate (Imdur) 30 mg PO DAILY [facility] Last Admin: 08/07/18 09:52 Dose: 30 mg Documented by: Metoprolol Succinate (Toprol Xl) 50 mg PO QDAY [facility] Last Admin: 08/07/18 09:51 Dose: 50 mg Documented by: Morphine Sulfate (Morphine) 2 mg IV Q4H PRN PRN Reason: Pain, Moderate (4-6) Ondansetron HCl (Zofran) 4 mg IV Q8H PRN PRN Reason: Nausea And Vomiting Risperidone (Risperdal) 1 mg PO DAILY [facility] Last Admin: 02/19/19 09:51 Dose: 1 mg Documented by: Sertraline HCl (Zoloft) 100 mg PO DAILY [facility] Last Admin: 08/07/18 09:51 Dose: 100 mg Documented by: Sodium Chloride (Sodium Chloride Flush Syringe 10 Ml) 10 ml IV BID [facility] Last Admin: 08/07/18 09:52 Dose: 10 ml Documented by: Sodium Chloride (Sodium Chloride Flush Syringe 10 Ml) 10 ml IV PRN PRN PRN Reason: LINE FLUSH Spironolactone (Aldactone) 25 mg PO QDAY [facility] Last Admin: 08/07/18 09:51 Dose: 25 mg Documented by: Physical Examination Vital Signs Resp 16 08/06/18 14:26 General appearance: no acute distress HEENT: Positive: PERRL Neck: Positive: trachea midline Cardiac: Positive: Reg Rate and Rhythm Lungs: Positive: Decreased Breath Sounds Neuro: Positive: Grossly Intact Results 08/07/18 05:30 08/07/18 05:30 Cardiac Enzymes 08/06/18 08/06/18 08/07/18 Range/Units 16:07 22:27 05:30 AST 23 (5-40) units/L CK-MB (CK-2) 2.0 2.0 (0.0-4.0) ng/mL Coagulation 08/06/18 Range/Units 15:47 PT 12.6 (12.2-14.9) Sec. INR 0.89 (0.87-1.13) APTT 30.7 (24.2-36.6) Sec. CBC 08/06/18 08/07/18 Range/Units 15:47 05:30 WBC 12.2 H 6.2 (4.5-11.0) K/mm3 RBC 4.85 4.34 (3.65-5.03) M/mm3 Hgb 13.9 12.5 (11.8-15.2) gm/dl Hct 41.9 37.9 (35.5-45.6) % Plt Count 380 321 (140-440) K/mm3 Lymph # 1.0 L 1.8 (1.2-5.4) K/mm3 [place] # 0.4 0.7 (0.0-0.8) K/mm3 Eos # 0.0 0.1 (0.0-0.4) K/mm3 Baso # 0.0 0.0 (0.0-0.1) K/mm3 Comprehensive Metabolic Panel 08/06/18 08/07/18 Range/Units 16:07 05:30 Sodium 138 138 (137-145) mmol/L Potassium 4.5 3.6 (3.6-5.0) mmol/L Chloride 104.5 98.7 (98-107) mmol/L Carbon Dioxide 18 L 26 D (22-30) mmol/L BUN 24 H 13 (9-20) mg/dL Creatinine 1.1 1.3 (0.8-1.5) mg/dL Glucose 112 H 100 (75-100) mg/dL Calcium 9.0 8.8 (8.4-10.2) mg/dL AST 23 (5-40) units/L ALT 12 (7-56) units/L Alkaline Phosphatase 55 (35-129) units/L Total Protein 8.1 (6.3-8.2) g/dL Albumin 3.9 (3.9-5) g/dL Assessment and Plan Uncontrolled Hypertension s/t to noncompliance with medications Hx of CAD s/p PCI 06/2017 Hx of PAD Cardiac workup 12/2017: Normal myocardial perfusion. Echocardiogram documents a normal left ventricular systolic function, ejection fraction 55%.
--- NOTE | 2018-08-07 19:40 | Progress Note ---
Assessment and Plan Assessment and plan: --Atypical chest pain; probably noncardiac Patient had extensive cardiac workup in the past, cardiology evaluated Recommend blood pressure control --Accelerated hypertension; present on admission Moderate control, optimize antihypertensives, and when necessary medications --Medical noncompliance; counseling done Advised to adhere to treatment diet and follow-up visits Verbalized understanding --History of coronary artery disease status post PCI; continue current cardiac medications Cardiology evaluated the patient --Peripheral arterial disease; continue current management Closely monitor the patient and adjust the management as needed Plan of care is reviewed with the patient and his nurse Cardiology evaluation and recommendations noted and appreciated Possible discharge when patient is stable and blood pressures are well controlled History Interval history: Patient seen and examined Medical records reviewed no new complaints vital signs reviewed Hospitalist Physical - Constitutional Vitals: Temp Pulse Resp BP Pulse Ox 98.7 F 53 L 16 114/49 98 08/07/18 16:11 08/07/18 16:11 08/07/18 16:11 08/07/18 16:11 08/07/18 19:32 General appearance: Present: no acute distress, well-nourished - EENT Eyes: Present: PERRL, EOM intact - Neck Neck: Present: supple, normal ROM - Respiratory Respiratory effort: normal Respiratory: negative: rales, rhonchi, wheezing - Cardiovascular Rhythm: regular Heart Sounds: Present: S1 & S2 - Extremities Extremities: no ischemia, No edema - Abdominal General gastrointestinal: soft, non-tender, non-distended, normal bowel sounds - Integumentary Integumentary: Present: clear, warm - Psychiatric Psychiatric: appropriate mood/affect, cooperative - Neurologic Neurologic: moves all extremities Results - Labs CBC & Chem 7: 08/07/18 05:30 08/07/18 05:30 Labs: Laboratory Last Values WBC 6.2 K/mm3 (4.5-11.0) 08/07/18 05:30 RBC 4.34 M/mm3 (3.65-5.03) 08/07/18 05:30 Hgb 12.5 gm/dl (11.8-15.2) 08/07/18 05:30 Hct 37.9 % (35.5-45.6) 08/07/18 05:30 MCV 87 fl (84-94) 08/07/18 05:30 MCH 29 pg (28-32) 08/07/18 05:30 MCHC 33 % (32-34) 08/07/18 05:30 RDW 17.8 % (13.2-15.2) H 08/07/18 05:30 Plt Count 321 K/mm3 (140-440) 08/07/18 05:30 Lymph % (Auto) 28.8 % (13.4-35.0) 08/07/18 05:30 [place] % (Auto) 10.8 % (0.0-7.3) H 08/07/18 05:30 Eos % (Auto) 0.8 % (0.0-4.3) 08/07/18 05:30 Baso % (Auto) 0.4 % (0.0-1.8) 08/07/18 05:30 Lymph # 1.8 K/mm3 (1.2-5.4) 08/07/18 05:30 [place] # 0.7 K/mm3 (0.0-0.8) 08/07/18 05:30 Eos # 0.1 K/mm3 (0.0-0.4) 08/07/18 05:30 Baso # 0.0 K/mm3 (0.0-0.1) 08/07/18 05:30 Seg Neutrophils % 59.2 % (40.0-70.0) 08/07/18 05:30 Seg Neutrophils # 3.7 K/mm3 (1.8-7.7) 08/07/18 05:30 PT 12.6 Sec. (12.2-14.9) 08/06/18 15:47 INR 0.89 (0.87-1.13) 08/06/18 15:47 APTT 30.7 Sec. (24.2-36.6) 08/06/18 15:47 Sodium 138 mmol/L (137-145) 08/07/18 05:30 Potassium 3.6 mmol/L (3.6-5.0) 08/07/18 05:30 Chloride 98.7 mmol/L (98-107) 08/07/18 05:30 Carbon Dioxide 26 mmol/L (22-30) D 08/07/18 05:30 Anion Gap 17 mmol/L 08/07/18 05:30 BUN 13 mg/dL (9-20) 08/07/18 05:30 Creatinine 1.3 mg/dL (0.8-1.5) 08/07/18 05:30 Estimated GFR > 60 ml/min 08/07/18 05:30 BUN/Creatinine Ratio 10 % 08/07/18 05:30 Glucose 100 mg/dL (75-100) 08/07/18 05:30 Calcium 8.8 mg/dL (8.4-10.2) 08/07/18 05:30 Total Bilirubin 0.30 mg/dL (0.1-1.2) 08/06/18 16:07 AST 23 units/L (5-40) 08/06/18 16:07 ALT 12 units/L (7-56) 08/06/18 16:07 Alkaline Phosphatase 55 units/L (35-129) 08/06/18 16:07 Total Creatine Kinase 98 units/L (55-170) 08/07/18 05:30 CK-MB (CK-2) 2.0 ng/mL (0.0-4.0) 08/07/18 05:30 CK-MB (CK-2) Rel Index 2.0 (0-4) 08/07/18 05:30 Troponin T < 0.010 ng/mL (0.00-0.029) 08/07/18 05:30 Total Protein 8.1 g/dL (6.3-8.2) 08/06/18 16:07 Albumin 3.9 g/dL (3.9-5) 08/06/18 16:07 Albumin/Globulin Ratio 0.9 % 08/06/18 16:07
[2018-08-08 05:49] LABS: Chol/HDL Ratio 6.22 %
--- NOTE | 2018-08-08 07:38 | Discharge Summary ---
Providers - Providers Date of Admission: 08/06/18 18:10 Date of discharge: 08/08/18 Attending physician: KATY NOVOA 08/06/18 22:13 Consult to Physician [CONS] Routine Comment: Consulting Provider: SAIGE GARCIA Physician Instructions: Reason For Exam: ua [facility] Reason for admission: chest pain and hypertensive emergency Condition: Stable Pertinent studies: CT head without contrast; negative Chest x-ray; normal study Hospital course: 58-year-old -[place] male patient with multiple medical problems including coronary artery disease status post PCI hypertension dyslipidemia and depression noncompliant with medications was admitted through emergency room with chest pain and hypertensive emergency up on admission., Patient was admitted symptomatically managed evaluated by cardiology, recommend optimal control of blood pressures, patient had extensive cardiac workup in the past, No further workup is indicated Patient's symptoms significantly improved, blood pressures medications resume and optimized, patient counseled the importance of adhering to the treatment plan Patient was given new prescriptions as he ran out of the medications and noncompliant. Antihypertensives, smoking cessation advised Patient verbalized understanding, Today patient is comfortable no new complaints vital signs stable physical examination unremarkable Cleared by cardiology for discharge and follow-up as needed Patient is hemodynamically and clinically stable at discharge Discharge diagnosis; --Atypical chest pain /noncardiac ;resolved Patient had extensive cardiac workup in the past, cardiology evaluated No Further workup ,Recommend blood pressure control --Hypertensive emergency; present on admission Well-controlled on multiple antihypertensives, and when necessary medications --Medical noncompliance; counseling done Advised to adhere to treatment diet and follow-up visits Verbalized understanding --History of coronary artery disease status post PCI; continue current cardiac medications Cardiology evaluated the patient --Peripheral arterial disease; stable on medications --Ongoing tobacco use; smoking cessation counseling Disposition: DC-01 TO HOME OR SELFCARE Time spent for discharge: 32 min Core Measure Documentation - Palliative Care Palliative Care/ Comfort Measures: Not Applicable - Core Measures Any of the following diagnoses?: none Exam - Constitutional Vitals: Temp Pulse Resp BP Pulse Ox 98.3 F 48 L 16 148/57 96 08/08/18 04:29 08/08/18 04:29 08/08/18 04:29 08/08/18 04:29 08/08/18 04:29 General appearance: Present: no acute distress, well-nourished - EENT Eyes: Present: PERRL, EOM intact - Neck Neck: Present: supple, normal ROM - Respiratory Respiratory effort: normal Respiratory: bilateral: diminished, negative: rales, rhonchi, wheezing - Cardiovascular Rhythm: regular Heart Sounds: Present: S1 & S2 - Extremities Extremities: no ischemia, No edema - Abdominal General gastrointestinal: Present: soft, non-tender, non-distended, normal bowel sounds - Integumentary Integumentary: Present: clear, warm - Musculoskeletal Musculoskeletal: strength equal bilaterally - Psychiatric Psychiatric: appropriate mood/affect, cooperative - Neurologic Neurologic: CNII-XII intact, moves all extremities Plan Activity: no restrictions Diet: other (cardiac diet) Additional Instructions: Smoking cessation advised. Strongly advised to comply with medications and diet follow-up visits. If you have chest pain or shortness of breath contact M.D. or go to ER Follow up with: UZAIR ORONA MD [Primary Care Provider] - 3-5 Days SAIGE GARCIA MD [Staff Physician] - 7 Days Prescriptions: amLODIPine [Norvasc] 10 mg PO DAILY #30 tablet Aspirin [Aspirin BABY CHEW TAB] 81 mg PO QDAY #30 tab.chew AtorvaSTATin [Lipitor] 40 mg PO QHS #30 tablet Clopidogrel [Plavix] 75 mg PO QDAY #30 tablet hydroCHLOROthiazide [HCTZ] 25 mg PO QDAY #30 tablet Metoprolol Succinate [Toprol Xl] 50 mg PO QDAY #30 tab.er.24h Spironolactone [Aldactone] 25 mg PO QDAY #30 tablet
[2018-08-08] MEDS: RisperDAL PO SCH (09:56)
[2018-08-08] MEDS: ZOLOFT PO SCH (09:57)
[2018-08-08] MEDS: HCTZ PO SCH (09:57)
[2018-08-08] MEDS: IMDUR PO SCH (09:57)
[2018-08-08] MEDS: TOPROL XL PO SCH (09:57)
[2018-08-08] MEDS: SODIUM CHLORIDE FLUSH SYRINGE 10 ML IV SCH (09:57)
[2018-08-08 10:00] VITALS: BP 164/73
[2018-08-08] MEDS ORDERED: HALFPRIN EC PO SCH (10:00)
[2018-08-08] MEDS ORDERED: ASPIRIN PO SCH (10:00)
[2018-08-08] MEDS: ALDACTONE PO SCH (10:00)
[2018-08-08] MEDS ORDERED: PLAVIX PO SCH (10:00)
--- NOTE | 2018-08-08 10:24 | Progress Note ---
Assessment and Plan Uncontrolled Hypertension s/t to noncompliance with medications Hx of CAD s/p PCI 06/2017 Hx of PAD Cardiac workup 12/2017: Normal myocardial perfusion. Echocardiogram documents a normal left ventricular systolic function, ejection fraction 55%. Conservative cardiac management. Once discharged, patient has been advised to follow up with by Dr. Freire, his primary inclusion intern at [facility]. Subjective Date of service: 08/08/18 Interval history: Patient has no complaints. For planned discharge home today. Objective Vital Signs Temp Pulse Resp BP Pulse Ox 08/08/18 10:00 97.8 F 08/08/18 09:59 55 L 18 164/73 96 08/08/18 04:29 98.3 F 48 L 16 148/57 96 08/07/18 23:14 98.2 F 54 L 12 148/67 93 08/07/18 20:27 18 08/07/18 20:16 54 L 08/07/18 19:41 98.1 F 54 L 12 149/64 96 08/07/18 19:32 98 08/07/18 16:11 98.7 F 53 L 16 114/49 95 08/07/18 12:12 98.3 F 59 L 16 134/69 97 - Physical Examination General: No Apparent Distress HEENT: Positive: PERRL Neck: Positive: trachea midline Cardiac: Positive: Reg Rate and Rhythm Lungs: Positive: Decreased Breath Sounds Neuro: Positive: Grossly Intact - Labs and Meds Lipids 08/08/18 Range/Units 04:47 Triglycerides 97 (2-149) mg/dL Cholesterol 218 H (50-199) mg/dL HDL Cholesterol 35 L (40-59) mg/dL Cholesterol/HDL Ratio 6.22 %
== END 2018-08-08 13:30 | disposition home or self-care (01) | DRG 313 ==
LOC: ED 13:38 → 4A 18:10
PROVIDERS: ADMIT Internal Medicine; ATTEND Internal Medicine
DX: R07.89 Other chest pain (principal); I16.1 Hypertensive emergency; R51 Headache; Z91.14 Patient's other noncompliance with medication regimen; I25.10 Atherosclerotic heart disease of native coronary artery without angina pectoris; Z98.61 Coronary angioplasty status; E11.51 Type 2 diabetes mellitus with diabetic peripheral angiopathy without gangrene; E11.40 Type 2 diabetes mellitus with diabetic neuropathy, unspecified; Z79.82 Long term (current) use of aspirin; I25.2 Old myocardial infarction; I11.0 Hypertensive heart disease with heart failure; I50.9 Heart failure, unspecified; Z91.19 Patient's noncompliance with other medical treatment and regimen; I25.5 Ischemic cardiomyopathy; F32.9 Major depressive disorder, single episode, unspecified; Z82.49 Family history of ischemic heart disease and other diseases of the circulatory system; Z87.891 Personal history of nicotine dependence; E78.5 Hyperlipidemia, unspecified; Z71.6 Tobacco abuse counseling
CPT/HCPCS: 36415; 70450; 71045; 80048; 80053; 80061; 82550; 82553; 84484; 85025; 85610; 85730; 93005; 93010; 96374; 96375; G0378; A9270-GY; J2270; J2405

== ENCOUNTER 2018-10-30 17:46 | Inpatient (IN) | payer MEDICAID ==
--- NOTE | 2018-10-30 18:39 | Emergency Department Report ---
ED Shortness of Breath HPI - General Chief Complaint: Dyspnea/Respdistress Stated Complaint: SOB Time Seen by Provider: 10/30/18 17:58 Source: EMS Mode of arrival: Stretcher Limitations: No Limitations - History of Present Illness Initial Comments: 50-year-old male with history of CAD with multiple stents, CHF presents to ED with dull chest pain and shortness of breath for 3 days . Patient states he was seen at [facility] and also [facility] 3 days ago and discharged from both ERs. Pt seen here in this ER on yesterday, had normal CXR and CTA Chest. Pt states he is having persistent chest pain and dyspnea on exertion. Reports associated nausea, no vomiting or diaphoresis. Cardiology: Brina Heart MD Complaint: shortness of breath, chest pain -: days(s) (3) Severity: moderate Consistency: constant Improves With: rest Worsens With: exertion Known History Of: congestive heart failure, other (CAD) Associated Symptoms: chest pain - Related Data Home Medications Medication Instructions Recorded Confirmed Last Taken Gabapentin [Neurontin] 300 mg PO QAM 01/09/18 10/30/18 01/08/18 Gabapentin [Neurontin] 600 mg PO QPM 01/09/18 10/30/18 Unknown Nicotine [Nicotine Patch] 1 each TD DAILY 01/09/18 10/30/18 01/08/18 Potassium Chloride [K-Dur] 20 meq PO QDAY 01/09/18 10/30/18 Unknown Previous Rx's Medication Instructions Recorded Last Taken Type ISOSORBIDE MONOnitrate [Imdur ER] 30 mg PO DAILY #30 tablet 08/28/17 01/08/18 Rx Sertraline [Zoloft] 100 mg PO DAILY #30 tablet 08/28/17 01/08/18 Rx risperiDONE [RisperDAL] 1 mg PO DAILY #30 tablet 08/28/17 01/08/18 Rx Aspirin [Aspirin BABY CHEW TAB] 81 mg PO QDAY #30 tab.chew 08/08/18 Unknown Rx AtorvaSTATin [Lipitor] 40 mg PO QHS #30 tablet 08/08/18 Unknown Rx Clopidogrel [Plavix] 75 mg PO QDAY #30 tablet 08/08/18 Unknown Rx Metoprolol Succinate [Toprol Xl] 50 mg PO QDAY #30 tab.er.24h 08/08/18 Unknown Rx Spironolactone [Aldactone] 25 mg PO QDAY #30 tablet 08/08/18 Unknown Rx hydroCHLOROthiazide [HCTZ] 25 mg PO QDAY #30 tablet 08/08/18 Unknown Rx hydrOXYzine PAMOATE [Vistaril] 50 mg PO Q6HR PRN #30 capsule 10/29/18 Unknown Rx Allergies Allergy/AdvReac Type Severity Reaction Status Date / Time No Known Allergies Allergy Verified 08/06/18 14:39 ED Review of Systems ROS: Stated complaint: SOB Other details as noted in HPI Comment: All other systems reviewed and negative Constitutional: denies: chills, fever Respiratory: shortness of breath. denies: cough Cardiovascular: chest pain Musculoskeletal: other (reports lower extremity edema) ED Past Medical Hx - Past Medical History Previous Medical History?: Yes Hx Hypertension: Yes Hx CVA: Yes (last 09/2017 right weakness) Hx Heart Attack/AMI: Yes (last 06/2017) Hx Congestive Heart Failure: Yes Hx Diabetes: No Hx Arthritis: No Hx Asthma: No Hx COPD: No Additional medical history: Cardiomegaly, Herniated Disk, Neuropathy - Surgical History Past Surgical History?: Yes Hx Coronary Stent: Yes Additional Surgical History: Heart stents; Stents and "bubble" placed in legs. - Social History Smoking Status: Former Smoker Substance Use Type: None - Medications Home Medications: Home Medications Medication Instructions Recorded Confirmed Last Taken Type ISOSORBIDE MONOnitrate [Imdur ER] 30 mg PO DAILY #30 tablet 08/28/17 10/30/18 01/08/18 Rx Sertraline [Zoloft] 100 mg PO DAILY #30 tablet 08/28/17 10/30/18 01/08/18 Rx risperiDONE [RisperDAL] 1 mg PO DAILY #30 tablet 08/28/17 10/30/18 01/08/18 Rx Gabapentin [Neurontin] 300 mg PO QAM 01/09/18 10/30/18 01/08/18 History Gabapentin [Neurontin] 600 mg PO QPM 01/09/18 10/30/18 Unknown History Nicotine [Nicotine Patch] 1 each TD DAILY 01/09/18 10/30/18 01/08/18 History Potassium Chloride [K-Dur] 20 meq PO QDAY 01/09/18 10/30/18 Unknown History Aspirin [Aspirin BABY CHEW TAB] 81 mg PO QDAY #30 tab.chew 08/08/18 10/30/18 Unknown Rx AtorvaSTATin [Lipitor] 40 mg PO QHS #30 tablet 08/08/18 10/30/18 Unknown Rx Clopidogrel [Plavix] 75 mg PO QDAY #30 tablet 08/08/18 10/30/18 Unknown Rx Metoprolol Succinate [Toprol Xl] 50 mg PO QDAY #30 tab.er.24h 08/08/18 10/30/18 Unknown Rx Spironolactone [Aldactone] 25 mg PO QDAY #30 tablet 08/08/18 10/30/18 Unknown Rx hydroCHLOROthiazide [HCTZ] 25 mg PO QDAY #30 tablet 08/08/18 10/30/18 Unknown Rx hydrOXYzine PAMOATE [Vistaril] 50 mg PO Q6HR PRN #30 capsule 10/29/18 10/30/18 Unknown Rx ED Physical Exam - General Limitations: No Limitations General appearance: alert, in no apparent distress - Head Head exam: Present: atraumatic, normocephalic - Eye Eye exam: Present: normal appearance - ENT ENT exam: Present: mucous membranes moist - Neck Neck exam: Present: normal inspection - Respiratory Respiratory exam: Present: normal lung sounds bilaterally. Absent: respiratory distress - Cardiovascular Cardiovascular Exam: Present: regular rate, normal rhythm - GI/Abdominal GI/Abdominal exam: Present: soft. Absent: distended, tenderness - Extremities Exam Extremities exam: Absent: pedal edema, calf tenderness - Neurological Exam Neurological exam: Present: alert, oriented X3 - Psychiatric Psychiatric exam: Present: normal affect, normal mood - Skin Skin exam: Present: warm, dry, intact, normal color ED Course Vital Signs 10/30/18 10/30/18 10/30/18 17:51 18:05 18:15 Temperature 98.0 F Pulse Rate 63 52 L 59 L Respiratory 20 12 13 Rate Blood Pressure 200/96 190/72 O2 Sat by Pulse 99 100 100 Oximetry 10/30/18 10/30/18 10/30/18 18:31 18:45 19:01 Temperature Pulse Rate 60 56 L 53 L Respiratory 14 16 13 Rate Blood Pressure 151/73 151/73 151/73 O2 Sat by Pulse 97 99 99 Oximetry 10/30/18 10/30/18 10/30/18 19:11 19:21 19:31 Temperature Pulse Rate 59 L 60 52 L Respiratory 13 14 21 Rate Blood Pressure 151/73 151/73 151/73 O2 Sat by Pulse 99 100 99 Oximetry 10/30/18 10/30/18 10/30/18 19:41 19:51 19:58 Temperature Pulse Rate 62 64 Respiratory 10 L 12 19 Rate Blood Pressure 151/73 151/73 O2 Sat by Pulse 98 100 99 Oximetry 10/30/18 10/30/18 10/30/18 20:01 20:11 20:21 Temperature Pulse Rate 63 57 L 62 Respiratory 18 15 14 Rate Blood Pressure 151/73 151/73 202/72 O2 Sat by Pulse 100 98 99 Oximetry 10/30/18 10/30/18 10/30/18 20:31 20:41 20:51 Temperature Pulse Rate 60 59 L 59 L Respiratory 13 21 22 Rate Blood Pressure 206/77 206/77 180/82 O2 Sat by Pulse 99 100 99 Oximetry 10/30/18 10/30/18 10/30/18 21:00 21:11 21:21 Temperature Pulse Rate 70 67 55 L Respiratory 15 19 16 Rate Blood Pressure 175/76 175/76 184/77 O2 Sat by Pulse 95 99 96 Oximetry 10/30/18 10/30/18 10/30/18 21:30 21:41 21:51 Temperature Pulse Rate 56 L 55 L 53 L Respiratory 21 20 16 Rate Blood Pressure 191/77 191/77 188/75 O2 Sat by Pulse 98 97 97 Oximetry 10/30/18 10/30/18 22:01 22:11 Temperature Pulse Rate 64 56 L Respiratory 14 10 L Rate Blood Pressure 167/77 167/77 O2 Sat by Pulse 97 100 Oximetry ED Medical Decision Making - Lab Data Result diagrams: 10/30/18 18:39 10/30/18 18:39 - EKG Data -: EKG Interpreted by [facility] EKG shows normal: sinus rhythm, axis, intervals, QRS complexes - EKG Data Interpretation: LVH, other (T wave inversions inferolateral leads) - Radiology Data Radiology results: report reviewed, image reviewed - Medical Decision Making 58 yo M w/ CAD, CHF presents w/ 3 day hx of SOB and chest pain. Pt seen 3 times in several EDs prior to today. Seen in this ED yesterday and had negative CXR, labs, CTA Chest. EKG shows more prominent T wave inversions in inferolateral leads compared to previous. Trop negative today and also during yesterday's visit. Will admit to hospitalist, Dr Nichole, for further workup. - Differential Diagnosis ACS, CHF, anxiety Critical care attestation.: If time is entered above; I have spent that time in minutes in the direct care of this critically ill patient, excluding procedure time. ED Disposition Clinical Impression: Chest pain Disposition: 09 OP ADMIT IP TO THIS HOSP Is pt being admited?: Yes Condition: Stable Time of Disposition: 19:19
[2018-10-30 18:50] LABS: Basophils % (Auto) 0.3 % (0.0-1.8); Eosinophils % (Auto) 0.7 % (0.0-4.3); Hematocrit 39.6 % (35.5-45.6); Hemoglobin 13.1 gm/dl (11.8-15.2); Lymphocytes # (Auto) 1.9 K/mm3 (1.2-5.4); Lymphocytes % (Auto) 28.5 % (13.4-35.0); Mean Corpuscular HGB Conc 33 % (32-34); Mean Corpuscular Volume 89 fl (84-94); Monocytes # (Auto) 0.7 K/mm3 (0.0-0.8); Monocytes % (Auto) 10.5 % (0.0-7.3); Platelet Count 311 K/mm3 (140-440); Red Blood Count 4.47 M/mm3 (3.65-5.03); Red Cell Distribution Width 19.5 % (13.2-15.2)
[2018-10-30 19:00] LABS: INR 0.99 (0.87-1.13); Partial Thromboplastin Time 35.5 Sec. (24.2-36.6)
--- NOTE | 2018-10-30 19:08 | XRay Report ---
PROCEDURE: XR CHEST 1V AP TECHNIQUE: Chest radiograph single view. HISTORY: sob COMPARISONS: None . FINDINGS: Single frontal view of the chest was acquired and compared to the prior examination of October 28. The heart is mildly large although unchanged from the prior exam. There is no evidence of congestive heart failure. There is no consolidative infiltrate. IMPRESSION: Stable cardiomegaly. Otherwise, no active disease in the chest This document is electronically signed by Ted Goddard MD., Oct 30 2018 07:06:36 PM ET
[2018-10-30 19:11] LABS: BUN/Creatinine Ratio 17; Blood Urea Nitrogen 24 mg/dL (9-20); Calcium 9.1 mg/dL (8.4-10.2); Hemolysis Index 10
[2018-10-30] MEDS ORDERED: ASPIRIN PO ONE (19:17)
--- NOTE | 2018-10-30 19:43 | History and Physical Report ---
History of Present Illness Chief complaint: My chest hurts, and I cant breathe in doc History of present illness: 58 YO Male with HTN, CAD S/P Stent Placement, OA, Diastolic CHF, [place], Nicotine Dependence presents to ED for evaluation. Pt states that he has experienced pain in his chest over the past 3 days with acutely worsening symptoms over the past 12 hours. Pt states that his pain is 5-7/10, Initially intermittent but has been constant over the past 12 hours, worsened with exertion, relieved with rest, nonradiating, worsened with deep breathing. Pt acknowledges decreased exercise tolerance, shortness of breath, dypsnea with exertion. EMS notified, and upon arrival th patient found to be in distress. Pt transported to [facility]. Pt seen and evaluated in ED and found to have symptoms consistent with CHF as well as Angina. Pt admitted to telemetry. Cardiology consulted in ED. Pt denies fever, chills, palpitations, NVD, Trauma, BRBPR, Unintentional weight loss, night sweats, skin rash, or recent ill contacts. Prior admission on 08/06/18 reviewed. All listed medication reconciled at time of admission. Past History Past Medical History: acute [place], CAD, heart failure, hypertension, stroke Past Surgical History: Other (Cardiac stent placement. ) Social history: single. denies: smoking, alcohol abuse, prescription drug abuse Family history: diabetes, hypertension Medications and Allergies Allergies Allergy/AdvReac Type Severity Reaction Status Date / Time No Known Allergies Allergy Verified 08/06/18 14:39 Home Medications Medication Instructions Recorded Confirmed Last Taken Type ISOSORBIDE MONOnitrate [Imdur ER] 30 mg PO DAILY #30 tablet 08/28/17 01/09/18 01/08/18 Rx Sertraline [Zoloft] 100 mg PO DAILY #30 tablet 08/28/17 01/09/18 01/08/18 Rx risperiDONE [RisperDAL] 1 mg PO DAILY #30 tablet 08/28/17 01/09/18 01/08/18 Rx Gabapentin [Neurontin] 300 mg PO QAM 01/09/18 01/09/18 01/08/18 History Gabapentin [Neurontin] 600 mg PO QPM 01/09/18 01/09/18 Unknown History Nicotine [Nicotine Patch] 1 each TD DAILY 01/09/18 01/09/18 01/08/18 History Potassium Chloride [K-Dur] 20 meq PO QDAY 01/09/18 01/09/18 Unknown History Aspirin [Aspirin BABY CHEW TAB] 81 mg PO QDAY #30 tab.chew 08/08/18 Unknown Rx AtorvaSTATin [Lipitor] 40 mg PO QHS #30 tablet 08/08/18 Unknown Rx Clopidogrel [Plavix] 75 mg PO QDAY #30 tablet 08/08/18 Unknown Rx Metoprolol Succinate [Toprol Xl] 50 mg PO QDAY #30 tab.er.24h 08/08/18 Unknown Rx Spironolactone [Aldactone] 25 mg PO QDAY #30 tablet 08/08/18 Unknown Rx hydroCHLOROthiazide [HCTZ] 25 mg PO QDAY #30 tablet 08/08/18 Unknown Rx hydrOXYzine PAMOATE [Vistaril] 50 mg PO Q6HR PRN #30 capsule 10/29/18 Unknown Rx Review of Systems Constitutional: no weight loss, no weight gain, no fever, no chills Ears, nose, mouth and throat: no ear pain, no ear discharge, no tinnitis, no decreased hearing, no nose pain Cardiovascular: chest pain, shortness of breath, dyspnea on exertion, high blood pressure, decreased exercise tolerance, no orthopnea, no rapid/irregular heart beat Respiratory: no cough, no cough with sputum, no excessive sputum, no hemoptysis Gastrointestinal: no nausea, no vomiting, no diarrhea, no constipation Genitourinary Male: no hematuria, no flank pain, no discharge, no urinary frequency Rectal: no pain, no incontinence, no bleeding Musculoskeletal: no neck stiffness, no neck pain, no shooting arm pain, no arm numbness/tingling, no low back pain Integumentary: no rash, no pruritis, no redness, no sores, no wounds Neurological: no transient paralysis, no paralysis, no weakness, no parathesias, no numbness, no tingling Psychiatric: no anxiety, no memory loss, no change in sleep habits, no sleep disturbances, no insomnia, no hypersomnia Endocrine: no cold intolerance, no heat intolerance, no polyphagia, no excessive thirst, no polydipsia, no polyuria Hematologic/Lymphatic: no easy bruising, no easy bleeding, no lymphadenopathy, no lymphedema Allergic/Immunologic: no urticaria, no allergic rhinitis, no wheezing, no persistent infections, no anaphylaxis Exam - Constitutional Vitals: Temp Pulse Resp BP Pulse Ox 98.0 F 53 L 13 151/73 99 10/30/18 17:51 10/30/18 19:01 10/30/18 19:01 10/30/18 19:01 10/30/18 19:01 General appearance: Present: mild distress - EENT Eyes: Present: PERRL ENT: hearing intact, clear oral mucosa - Neck Neck: Present: supple, normal ROM - Respiratory Respiratory effort: normal Respiratory: bilateral: CTA - Cardiovascular Heart Sounds: Present: S1 & S2. Absent: rub, click - Extremities Extremities: pulses symmetrical, No edema Peripheral Pulses: within normal limits - Abdominal General gastrointestinal: Present: soft, non-tender, non-distended, normal bowel sounds Male genitourinary: Present: normal - Integumentary Integumentary: Present: clear, warm, dry - Musculoskeletal Musculoskeletal: gait normal, strength equal bilaterally - Psychiatric Psychiatric: appropriate mood/affect, intact judgment & insight - Neurologic Neurologic: CNII-XII intact, moves all extremities Results - Labs CBC & Chem 7: 10/30/18 18:39 10/30/18 18:39 Labs: Abnormal lab results 10/30/18 10/30/18 Range/Units 18:39 18:39 RDW 19.5 H (13.2-15.2) % [place] % (Auto) 10.5 H (0.0-7.3) % BUN 24 H (9-20) mg/dL Assessment and Plan - Patient Problems (1) CHF (congestive heart failure) Current Visit: No Status: Acute Qualifiers: Heart failure type: diastolic Heart failure chronicity: acute on chronic Qualified Code(s): I50.33 - Acute on chronic diastolic (congestive) heart failure Plan to address problem: Admit to telemetry, Cardiology consulted in ED, thyroid panel, magnesium, strict I/O, daily weight, monitor uop q shift, (2) Nicotine dependence Current Visit: Yes Status: Acute Qualifiers: Nicotine product type: cigarettes Substance use status: in withdrawal Qualified Code(s): F17.213 - Nicotine dependence, cigarettes, with withdrawal Plan to address problem: Smoking cessation counseling, supportive care. (3) Angina at rest Current Visit: Yes Status: Acute Plan to address problem: serial cardiac enzymes, ekg, telemetry, morphine, supplemental oxygen, nitro, aspirin, d dimer, chest x ray, ppi therapy. (4) HTN (hypertension) Current Visit: Yes Status: Acute Qualifiers: Hypertension type: essential hypertension Qualified Code(s): I10 - Essential (primary) hypertension Plan to address problem: Monitor bp q shift, IV hydralazine prn for SBP >155. (5) CAD (coronary artery disease) Current Visit: Yes Status: Acute Qualifiers: Associated angina: with stable angina Plan to address problem: Lipid panel, risk factor reduction, lipid panel, low cholesterol diet (6) DVT prophylaxis Current Visit: No Status: Acute Plan to address problem: SCD to BLE while in bed, prophylactic lovenox.
[2018-10-30] MEDS ORDERED: ZOFRAN IV PRN (19:47)
[2018-10-30] MEDS ORDERED: NITROSTAT SL PRN (19:47)
[2018-10-30] MEDS ORDERED: SODIUM CHLORIDE FLUSH SYRINGE 10 ML IV PRN ×2 (19:47)
[2018-10-30] MEDS ORDERED: PROVENTIL IH PRN (19:47)
[2018-10-30] MEDS ORDERED: BABY ASPIRIN PO STA (19:47)
[2018-10-30] MEDS ORDERED: TYLENOL PO PRN (19:47)
[2018-10-30] MEDS ORDERED: MORPHINE IV PRN (19:47)
[2018-10-30] MEDS ORDERED: VISTARIL PO PRN (20:03)
[2018-10-30 20:12] LABS: Chol/HDL Ratio 6.22 %
[2018-10-30] MEDS ORDERED: APRESOLINE IV PRN (20:12)
[2018-10-30] MEDS ORDERED: LOVENOX SUB-Q SCH (22:00)
[2018-10-30] MEDS: PEPCID PO SCH (23:36)
[2018-10-30] MEDS: SODIUM CHLORIDE FLUSH SYRINGE 10 ML IV SCH (23:37)
[2018-10-30] MEDS ORDERED: DUONEB *Not for PRN Use IH ONE ×2 (23:44→23:54)
[2018-10-31 05:26] LABS: Basophils % (Auto) 0.6 % (0.0-1.8); Eosinophils # (Auto) 0.1 K/mm3 (0.0-0.4); Eosinophils % (Auto) 0.9 % (0.0-4.3); Hematocrit 37.8 % (35.5-45.6); Hemoglobin 12.4 gm/dl (11.8-15.2); Lymphocytes # (Auto) 2.1 K/mm3 (1.2-5.4); Mean Corpuscular HGB Conc 33 % (32-34); Mean Corpuscular Volume 89 fl (84-94); Monocytes # (Auto) 0.9 K/mm3 (0.0-0.8); Monocytes % (Auto) 12.4 % (0.0-7.3); Platelet Count 296 K/mm3 (140-440); Red Blood Count 4.27 M/mm3 (3.65-5.03); Red Cell Distribution Width 19.1 % (13.2-15.2)
[2018-10-31 05:42] LABS: BUN/Creatinine Ratio 17; Blood Urea Nitrogen 22 mg/dL (9-20); Calcium 8.5 mg/dL (8.4-10.2); Hemolysis Index 11
[2018-10-31 08:04] VITALS: BP 160/69
[2018-10-31] MEDS: PEPCID PO SCH (09:49)
[2018-10-31] MEDS: SODIUM CHLORIDE FLUSH SYRINGE 10 ML IV SCH (09:50)
[2018-10-31] MEDS ORDERED: NEURONTIN PO SCH ×2 (10:00→18:00)
[2018-10-31] MEDS ORDERED: BABY ASPIRIN PO SCH (10:00)
[2018-10-31] MEDS ORDERED: K-DUR PO SCH (10:00)
[2018-10-31] MEDS ORDERED: ALDACTONE PO SCH (10:00)
[2018-10-31] MEDS ORDERED: HABITROL TD SCH ×2 (10:00)
[2018-10-31] MEDS ORDERED: PLAVIX PO SCH (10:00)
[2018-10-31] MEDS ORDERED: ZOLOFT PO SCH (10:00)
[2018-10-31] MEDS ORDERED: IMDUR PO SCH (10:00)
[2018-10-31] MEDS ORDERED: RisperDAL PO SCH (10:00)
[2018-10-31] MEDS ORDERED: HCTZ PO SCH (10:00)
--- NOTE | 2018-10-31 10:08 | Consultation ---
History of Present Illness Consult date: 10/31/18 Consult reason: chest pain History of present illness: 58 year old male presenting with pleuritic left sided chest pain, intermittent, non-exertional and shortness of breath. Pain started on Monday. Only exacerbating factor is deep inspiration. He denies exertional chest tightness of shortness of breath. ECG showing no ischemic changes when compared to study dated 07/2018 and troponin is negative along with a normal BNP level. Currently patient is asymptomatic. Interestingly patient has been through multiple ER visits for the same reason. He also admits that symptoms started after he picked up his grandson. Past History Past Medical History: acute [place], CAD, heart failure, hypertension, stroke Past Surgical History: Other (Cardiac stent placement. ) Social history: single. denies: smoking, alcohol abuse, prescription drug abuse Family history: diabetes, hypertension Medications and Allergies Allergies Allergy/AdvReac Type Severity Reaction Status Date / Time No Known Allergies Allergy Verified 08/06/18 14:39 Home Medications Medication Instructions Recorded Confirmed Last Taken Type ISOSORBIDE MONOnitrate [Imdur ER] 30 mg PO DAILY #30 tablet 08/28/17 10/30/18 01/08/18 Rx Sertraline [Zoloft] 100 mg PO DAILY #30 tablet 08/28/17 10/30/18 01/08/18 Rx risperiDONE [RisperDAL] 1 mg PO DAILY #30 tablet 08/28/17 10/30/18 01/08/18 Rx Gabapentin [Neurontin] 300 mg PO QAM 01/09/18 10/30/18 01/08/18 History Gabapentin [Neurontin] 600 mg PO QPM 01/09/18 10/30/18 Unknown History Nicotine [Nicotine Patch] 1 each TD DAILY 01/09/18 10/30/18 01/08/18 History Potassium Chloride [K-Dur] 20 meq PO QDAY 01/09/18 10/30/18 Unknown History Aspirin [Aspirin BABY CHEW TAB] 81 mg PO QDAY #30 tab.chew 08/08/18 10/30/18 Unknown Rx AtorvaSTATin [Lipitor] 40 mg PO QHS #30 tablet 08/08/18 10/30/18 Unknown Rx Clopidogrel [Plavix] 75 mg PO QDAY #30 tablet 08/08/18 10/30/18 Unknown Rx Metoprolol Succinate [Toprol Xl] 50 mg PO QDAY #30 tab.er.24h 08/08/18 10/30/18 Unknown Rx Spironolactone [Aldactone] 25 mg PO QDAY #30 tablet 08/08/18 10/30/18 Unknown Rx hydroCHLOROthiazide [HCTZ] 25 mg PO QDAY #30 tablet 08/08/18 10/30/18 Unknown Rx hydrOXYzine PAMOATE [Vistaril] 50 mg PO Q6HR PRN #30 capsule 10/29/18 10/30/18 U nknown Rx Active Meds: Active Medications Acetaminophen (Tylenol) 650 mg PO Q4H PRN PRN Reason: Pain MILD(1-3)/Fever >100.5/SAHU Albuterol (Proventil) 2.5 mg IH Q4HRT PRN PRN Reason: Shortness Of Breath Aspirin (Baby Aspirin) 81 mg PO QDAY [facility] Last Admin: 10/31/18 09:49 Dose: 81 mg Documented by: Atorvastatin Calcium (Lipitor) 40 mg PO QHS [facility] Last Admin: 10/30/18 23:36 Dose: 40 mg Documented by: Clopidogrel Bisulfate (Plavix) 75 mg PO QDAY [facility] Last Admin: 10/31/18 09:48 Dose: 75 mg Documented by: Enoxaparin Sodium (Lovenox) 40 mg SUB-Q QDAY@2200 [facility] Last Admin: 10/30/18 23:36 Dose: 40 mg Documented by: Famotidine (Pepcid) 10 mg PO BID [facility] Last Admin: 10/31/18 09:49 Dose: 10 mg Documented by: Gabapentin (Neurontin) 300 mg PO QAM [facility] Last Admin: 10/31/18 09:48 Dose: 300 mg Documented by: Gabapentin (Neurontin) 600 mg PO QPM [facility] Hydralazine HCl (Apresoline) 10 mg IV Q8HR PRN PRN Reason: HTN SBP>155 Hydrochlorothiazide (Hctz) 25 mg PO QDAY [facility] Last Admin: 10/31/18 09:48 Dose: 25 mg Documented by: Hydroxyzine Pamoate (Vistaril) 50 mg PO Q6HR PRN PRN Reason: Anxiety Isosorbide Mononitrate (Imdur) 30 mg PO DAILY [facility] Last Admin: 10/31/18 09:49 Dose: 30 mg Documented by: Morphine Sulfate (Morphine) 2 mg IV Q4H PRN PRN Reason: Pain, Moderate (4-6) Nicotine (Habitrol) 7 mg TD DAILY [facility] Last Admin: 10/31/18 09:53 Dose: Not Given Documented by: Nitroglycerin (Nitrostat) 0.4 mg SL Q5M PRN PRN Reason: Chest Pain Ondansetron HCl (Zofran) 4 mg IV Q8H PRN PRN Reason: Nausea And Vomiting Potassium Chloride (K-Dur) 20 meq PO QDAY [facility] Last Admin: 10/31/18 09:49 Dose: 20 meq Documented by: Risperidone (Risperdal) 1 mg PO DAILY [facility] Last Admin: 10/31/18 09:49 Dose: 1 mg Documented by: Sertraline HCl (Zoloft) 100 mg PO DAILY [facility] Last Admin: 10/31/18 09:49 Dose: 100 mg Documented by: Sodium Chloride (Sodium Chloride Flush Syringe 10 Ml) 10 ml IV BID [facility] Last Admin: 10/31/18 09:50 Dose: 10 ml Documented by: Sodium Chloride (Sodium Chloride Flush Syringe 10 Ml) 10 ml IV PRN PRN PRN Reason: LINE FLUSH Spironolactone (Aldactone) 25 mg PO QDAY [facility] Last Admin: 10/31/18 09:48 Dose: 25 mg Documented by: Review of Systems All systems: negative Physical Examination Vital Signs Temp Pulse Resp BP Pulse Ox 98.0 F 63 20 200/96 99 10/30/18 17:51 10/30/18 17:51 10/30/18 17:51 10/30/18 17:51 10/30/18 17:51 General appearance: no acute distress HEENT: Positive: PERRL Neck: Positive: neck supple Cardiac: Positive: Reg Rate and Rhythm Lungs: Positive: Normal Exam Neuro: Positive: Grossly Intact Abdomen: Positive: Soft Extremities: Present: normal Results 10/31/18 04:49 10/31/18 04:49 Coagulation 10/30/18 Range/Units 18:39 PT 13.7 (12.2-14.9) Sec. INR 0.99 (0.87-1.13) APTT 35.5 (24.2-36.6) Sec. Lipids 10/30/18 Range/Units 20:07 Triglycerides 92 (2-149) mg/dL Cholesterol 224 H (50-199) mg/dL HDL Cholesterol 36 L (40-59) mg/dL Cholesterol/HDL Ratio 6.22 % CBC 10/30/18 10/31/18 Range/Units 18:39 04:49 WBC 6.8 6.9 (4.5-11.0) K/mm3 RBC 4.47 4.27 (3.65-5.03) M/mm3 Hgb 13.1 12.4 (11.8-15.2) gm/dl Hct 39.6 37.8 (35.5-45.6) % Plt Count 311 296 (140-440) K/mm3 Lymph # 1.9 2.1 (1.2-5.4) K/mm3 Hayes # 0.7 0.9 H (0.0-0.8) K/mm3 Eos # 0.0 0.1 (0.0-0.4) K/mm3 Baso # 0.0 0.0 (0.0-0.1) K/mm3 Comprehensive Metabolic Panel 10/30/18 10/31/18 Range/Units 18:39 04:49 Sodium 139 137 (137-145) mmol/L Potassium 4.2 3.7 (3.6-5.0) mmol/L Chloride 102.6 102.0 (98-107) mmol/L Carbon Dioxide 25 23 (22-30) mmol/L BUN 24 H 22 H (9-20) mg/dL Creatinine 1.4 1.3 (0.8-1.5) mg/dL Glucose 86 97 (75-100) mg/dL Calcium 9.1 8.5 (8.4-10.2) mg/dL - EKG Interpretation EKG: sinus rhythm EKG interpretations - Telemetry EKG Rhythm: Sinus Rhythm Assessment and Plan Atypical chest pain, chronic Negative troponin Normal BNP Stable cardiomegaly on CXR No PE or dissection noted on CTA chest Hx of CAD s/p PCI to OM1 with a 2.25 x 18 mm LISSET 06/2017 Hx of PAD s/p- Partial excision of R YARN DYER stent, patch angioplasty R YARN DYER (03/22/2018) History of GI bleed 04/2018 with evidence of gastritis and duodenitis on EGD Cardiac workup 12/2017: Normal myocardial perfusion. Echocardiogram documents a normal left ventricular systolic function, ejection fraction 55%. Cardiac cath at [place] [address]/2018: 1. Left main artery: 20% 2. Proximal left anterior descending artery: 30% 3. Mid-Distal left anterior descending artery/diagonal artery: patent mid LAD stent, 40% distal to the stent. Diffuse 40-50% diagonal disease 4. Circumflex/obtuse marginal artery: 30% 5. Right coronary artery: diffuse 30-40% 6. Coronary dominance: Right 7. Left ventricle ejection fraction: 40% 8. Left ventricle wall motion: global hypokinesis 9. Mitral Regurgitation: 2+ 10. LVEDP: 20-22mm Hg 11. LV-Aorta gradient: 0mm Hg Cardiac MRI 09/2017: 1. Mild LA enlargement, severe LV enlargement (LVEDV 123 ml/m2). Eccentric LVH. NO thrombus in LA or RA appendages. There is no flow acceleration in LVOT. There is NO systolic anterior motion of anterior mitral leaflet. 2. Low normal LV systolic function (LVEF 56%). Normal RV systolic function (RVEF 65%). 3. There is non-CAD pattern scar in mid RV insertion sites. 4. There is trilealfet aortic valve with mild to moderate (RV 29 ml, RF 26%). 5. Thoracic aorta is of normal caliber without aneurysm or dissection. Echocardiogram at [facility] 03/2018: LV normal size. Normal LV wall thickness. LV wall motion normal. LVEF is 7 8%. LVEF normal. Normal LV diastolic function. No LV thrombus. RV normal size. RV systolic function is normal Tricuspid AV. AV opens well. Mild to moderate AR. No AV stenosis. Estimated RAP 5 mmHg based on IVC. RVSP is mildly elevated. Recommendations: No further cardiac work-up is needed for atypical chest pain given recent extensive ischemic evaluation here and at [facility] Consider LE arterial doppler to evaluate leg pain given history of PAD Follow up with by Dr. Freire, his primary vp customer service at [facility].
--- NOTE | 2018-10-31 10:58 | Discharge Summary ---
Providers - Providers Date of Admission: 10/30/18 19:47 Date of discharge: 10/31/18 Attending physician: CAROLYNN RDZ 10/30/18 Consult to Cardiac Rehabilitation [CONS] Routine Reason For Exam: Phase I 10/30/18 19:47 Consult to Cardiology [CONS] Routine Consulting Provider: SAIGE GARCIA Reason For Exam: chf/angina [facility] Reason for admission: cp Condition: Stable Hospital course: 58 year old male presenting with pleuritic left sided chest pain, intermittent, non-exertional and shortness of breath. Pain started on Monday. Only exacerbating factor is deep inspiration. He denies exertional chest tightness of shortness of breath. ECG showing no ischemic changes when compared to study dated 07/2018 and troponin is negative along with a normal BNP level. Currently patient is asymptomatic. Interestingly patient has been through multiple ER visits for the same reason. He also admits that symptoms started after he picked up his grandson. Cardiology saw the patient in consultation and patient was admitted with diagnosis of chronic atypical chest pain. Given the findings noted above and recent extensive ischemic evaluation here and at [facility], cardiology felt no intervention was necessary and felt the patient could be discharged. Dedicated discharge time 32 min Previous workup including Cardiac cath at [place] 06/2017: 1. Left main artery: 20% 2. Proximal left anterior descending artery: 30% 3. Mid-Distal left anterior descending artery/diagonal artery: patent mid LAD stent, 40% distal to the stent. Diffuse 40-50% diagonal disease 4. Circumflex/obtuse marginal artery: 30% 5. Right coronary artery: diffuse 30-40% 6. Coronary dominance: Right 7. Left ventricle ejection fraction: 40% 8. Left ventricle wall motion: global hypokinesis 9. Mitral Regurgitation: 2+ 10. LVEDP: 20-22mm Hg 11. LV-Aorta gradient: 0mm Hg Cardiac MRI 09/2017: 1. Mild LA enlargement, severe LV enlargement (LVEDV 123 ml/m2). Eccentric LVH. NO thrombus in LA or RA appendages. There is no flow acceleration in LVOT. There is NO systolic anterior motion of anterior mitral leaflet. 2. Low normal LV systolic function (LVEF 56%). Normal RV systolic function (RVEF 65%). 3. There is non-CAD pattern scar in mid RV insertion sites. 4. There is trilealfet aortic valve with mild to moderate (RV 29 ml, RF 26%). 5. Thoracic aorta is of normal caliber without aneurysm or dissection. Echocardiogram at [facility] 03/2018: LV normal size. Normal LV wall thickness. LV wall motion normal. LVEF is 78%. LVEF normal. Normal LV diastolic function. No LV thrombus. RV normal size. RV systolic function is normal Tricuspid AV. AV opens well. Mild to moderate AR. No AV stenosis. Estimated RAP 5 mmHg based on IVC. RVSP is mildly elevated. Disposition: DC-01 TO HOME OR SELFCARE Time spent for discharge: 32 - Discharge Diagnoses (1) Pleurisy Status: Acute (2) CAD (coronary artery disease) Status: Acute Qualifiers: Associated angina: with stable angina (3) Chest pain Status: Acute Comment: due to GERD (4) HTN (hypertension) Status: Acute Qualifiers: Hypertension type: essential hypertension Qualified Code(s): I10 - Essential (primary) hypertension (5) Nicotine dependence Status: Acute Qualifiers: Nicotine product type: cigarettes Substance use status: in withdrawal Qualified Code(s): F17.213 - Nicotine dependence, cigarettes, with withdrawal (6) CAD (coronary artery disease) Status: Acute Qualifiers: Coronary Disease-Associated Artery/Lesion type: [place] artery Associated angina: without angina (7) GERD (gastroesophageal reflux disease) Status: Acute Core Measure Documentation - Palliative Care Palliative Care/ Comfort Measures: Not Applicable - Core Measures Any of the following diagnoses?: none Exam - Constitutional Vitals: Temp Pulse Resp BP Pulse Ox 98.2 F 51 L 16 160/69 96 10/31/18 07:54 10/31/18 09:49 10/31/18 07:54 10/31/18 09:49 10/31/18 07:54 General appearance: Present: no acute distress, well-nourished - EENT Eyes: Present: PERRL ENT: hearing intact, clear oral mucosa - Neck Neck: Present: supple, normal ROM - Respiratory Respiratory effort: normal Respiratory: bilateral: CTA - Cardiovascular Heart Sounds: Present: S1 & S2. Absent: rub, click - Extremities Extremities: pulses symmetrical, No edema Peripheral Pulses: within normal limits - Abdominal General gastrointestinal: Present: soft, non-tender, non-distended, normal bowel sounds Male genitourinary: Present: normal - Integumentary Integumentary: Present: clear, warm, dry - Musculoskeletal Musculoskeletal: gait normal, strength equal bilaterally - Psychiatric Psychiatric: appropriate mood/affect, intact judgment & insight - Neurologic Neurologic: CNII-XII intact, moves all extremities Plan Activity: no restrictions Weight Bearing Status: Full Weight Bearing Diet: regular [facility] - 3-5 Days Prescriptions: Spironolactone [Aldactone] 25 mg PO QDAY #30 tablet Aspirin [Aspirin BABY CHEW TAB] 81 mg PO QDAY #30 tab.chew hydroCHLOROthiazide [HCTZ] 25 mg PO QDAY #30 tablet ISOSORBIDE MONOnitrate [Imdur ER] 30 mg PO DAILY #30 tablet Potassium Chloride [K-Dur] 20 meq PO QDAY #30 tablet AtorvaSTATin [Lipitor] 40 mg PO QHS #30 tablet Gabapentin [Neurontin] 600 mg PO QPM #30 capsule Gabapentin [Neurontin] 300 mg PO QAM #30 capsule Nicotine [Nicotine Patch] 1 each TD DAILY #30 patch.td24 Clopidogrel [Plavix] 75 mg PO QDAY #30 tablet risperiDONE [RisperDAL] 1 mg PO DAILY #30 tablet hydrOXYzine PAMOATE [Vistaril] 50 mg PO Q6HR PRN #30 capsule PRN Reason: Anxiety Sertraline [Zoloft] 100 mg PO DAILY #30 tablet
--- NOTE | 2018-10-31 12:40 | Cat Scan Report ---
CTA CHEST: HISTORY: chest pain. COMPARISON: 10/28/18. TECHNIQUE: Helical CT in 1.25mm intervals following IV contrast. Pulmonary embolus protocol. Sagittal and coronal reformatted images. Rotational MIP images. FINDINGS: Contrast bolus is satisfactory. No pulmonary embolus is identified. Thyroid gland: Normal. Tracheobronchial tree: Normal. Esophagus: Normal. Heart: Borderline to mild cardiomegaly. Pericardium: Normal. Mediastinum: Normal. Lung Benson: Within normal limits. Pleural Spaces: Normal. Musculoskeletal: Intact. IMPRESSION: No evidence for pulmonary embolus. Borderline heart size. Lungs clear.
== END 2018-10-31 17:25 | disposition home or self-care (01) | DRG 391 ==
LOC: ED 17:46 → 4A 19:47
PROVIDERS: ADMIT Internal Medicine; ATTEND Hospitalist
DX: K21.9 Gastro-esophageal reflux disease without esophagitis (principal); I50.33 Acute on chronic diastolic (congestive) heart failure; I11.0 Hypertensive heart disease with heart failure; R09.1 Pleurisy; I25.118 Atherosclerotic heart disease of native coronary artery with other forms of angina pectoris; F17.213 Nicotine dependence, cigarettes, with withdrawal; I73.9 Peripheral vascular disease, unspecified; M19.90 Unspecified osteoarthritis, unspecified site; Z86.73 Personal history of transient ischemic attack (TIA), and cerebral infarction without residual deficits; I25.2 Old myocardial infarction; Z95.5 Presence of coronary angioplasty implant and graft; Z82.49 Family history of ischemic heart disease and other diseases of the circulatory system; Z83.3 Family history of diabetes mellitus; Z79.899 Other long term (current) drug therapy; Z79.82 Long term (current) use of aspirin
CPT/HCPCS: 36415; 71045; 71275; 80048; 80053; 80061; 82803; 83880; 84484; 85007; 85025; 85379; 85610; 85730; 93005; 93010; 94640; 96374; 99406; G0378; A9270-GY; J1650; J2060; Q0177; Q9967